=== PATIENT | male | born 1950 | race Caucasian/White ===

== ENCOUNTER 2018-10-29 07:38 | Day surgery (SDC) | payer MEDICARE, BC ==
[2018-10-29] MEDS ORDERED: Lactated Ringers 1,000 ML IV SCH (08:15)
[2018-10-29] MEDS ORDERED: Propofol 200 MG/20 ML SDV ONE (09:27)
[2018-10-29] MEDS ORDERED: Midazolam 1 MG/ML 2 ML SDV ONE (09:27)
[2018-10-29] MEDS ORDERED: fentaNYL 100 MCG/2 ML SDV ONE (09:27)
[2018-10-29 11:50] VITALS: BP 169/99
--- NOTE | 2018-10-29 12:38 | OR ---
DATE OF PROCEDURE: 10/29/2018 PREOPERATIVE DIAGNOSIS: Positive FIT test. POSTOPERATIVE DIAGNOSES: [place] diverticulosis, small proximal right colon polyp, positive FIT test. PROCEDURE: Colonoscopy to the cecum with biopsy resection of small proximal right colon polyp. ANESTHESIA: IV anesthesia with monitored anesthesia care. INDICATION: This 67-year-old white male was referred for a colonoscopy. He says the last colonoscopic exam was done 8 years ago. He had a positive FIT test. I counseled him for the procedure including risks and alternatives, and he gave his informed consent to proceed. DESCRIPTION OF PROCEDURE: The patient was placed in the left lateral decubitus position. IV anesthesia was administered by the Anesthesia Service. Time-out was held. A rectal exam was performed which was unremarkable. The flexible video Olympus colonoscope was introduced through his anus, up his rectum, out his colon, all the way to the cecum. En route, we saw multiple both right and left-sided diverticula. There was no bleeding or inflammation associated with any of them at the present time. Once the cecum was reached, the scope was slowly withdrawn examining the mucosa throughout. In the proximal right colon, we saw a small polyp which was removed with the biopsy forceps. The scope was withdrawn further with no other neoplastic lesions noted. The scope was retroflexed in the rectum with the distal rectum appearing unremarkable. The scope was straightened and removed. He tolerated the procedure well. Leonides Hill MD /[id number]
== END 2018-10-29 11:40 | disposition home or self-care (01) ==
LOC: JP.SDS 07:38
PROVIDERS: ATTEND Surgery
DX: R19.5 Other fecal abnormalities (principal); D12.2 Benign neoplasm of ascending colon; K57.30 Diverticulosis of large intestine without perforation or abscess without bleeding
CPT/HCPCS: 45380; J2250; J2704; J3010; J7120

== ENCOUNTER 2019-03-16 06:17 | Day surgery (SDC) | payer MEDICARE, BC ==
[2019-03-16] MEDS ORDERED: Midazolam 1 MG/ML 2 ML SDV ONE (06:46)
[2019-03-16] MEDS ORDERED: Propofol 200 MG/20 ML SDV ONE (06:46)
[2019-03-16] MEDS ORDERED: Lactated Ringers 1,000 ML IV SCH (07:30)
[2019-03-16] MEDS ORDERED: Ketamine 500 MG/5 ML MDV ONE (07:57)
[2019-03-16 09:11] VITALS: BP 139/71
--- NOTE | 2019-03-16 11:03 | OR ---
DATE OF PROCEDURE: 03/16/2019 PREOPERATIVE DIAGNOSES: Dysphagia, history of peptic ulcer disease. POSTOPERATIVE DIAGNOSES: Gastroesophageal reflux disease, dysphagia, gastritis, history of peptic ulcer disease. PROCEDURE: Esophagogastroduodenoscopy with biopsy of gastroesophageal junction and biopsy of the antrum for CLOtest and for pathology to look for Helicobacter pylori. SURGEON: Leonides Hill MD ANESTHESIA: IV anesthesia with monitored anesthesia care. INDICATION: This 68-year-old white male is referred for upper endoscopy. He complains of food getting stuck occasionally when he swallows. He has never smoked. Additionally, he says he has a history of peptic ulcer disease about 20 years ago and has been on antacid medication since then. I counseled him for upper endoscopy with possible biopsy, including risks and alternatives, and he gave his informed consent to proceed. DESCRIPTION OF PROCEDURE: The patient was placed in a left lateral decubitus position. IV anesthesia was administered by the Anesthesia Service. Time-out was held. The flexible video Olympus upper endoscope was passed through his mouth, down the esophagus, and into his stomach. The scope was easily passed through the pylorus into the duodenum, reaching its third portion. The scope was then slowly withdrawn, examining the mucosa throughout. The duodenal mucosa appeared unremarkable. The scope was brought up through the pylorus. The antrum had areas of erythematous streaking with occasional small prepyloric ulcers noted, consistent with gastritis. The scope was retroflexed. The most proximal stomach appeared unremarkable. The scope was straightened. We obtained biopsies of the antrum for CLOtest and for pathology to look for Helicobacter pylori. The scope was then brought up to the GE junction. The Z-line was not straight, consistent with gastroesophageal reflux disease. We obtained multiple, totalling at least 6, biopsies of the gastroesophageal junction. The scope was then brought proximally up through remainder of the esophagus, which otherwise appeared unremarkable, and it was removed. There were no obstructing lesions in the esophagus. Leonides Hill MD /[id number]
== END 2019-03-16 09:16 | disposition home or self-care (01) ==
LOC: JP.SDS 06:17
PROVIDERS: ATTEND Surgery
DX: K29.50 Unspecified chronic gastritis without bleeding (principal); K21.9 Gastro-esophageal reflux disease without esophagitis; K22.8 Other specified diseases of esophagus; K57.90 Diverticulosis of intestine, part unspecified, without perforation or abscess without bleeding; I10 Essential (primary) hypertension; E11.9 Type 2 diabetes mellitus without complications; E78.5 Hyperlipidemia, unspecified; F32.9 Major depressive disorder, single episode, unspecified; F41.9 Anxiety disorder, unspecified; G47.30 Sleep apnea, unspecified; M10.9 Gout, unspecified; E66.9 Obesity, unspecified; Z68.41 Body mass index [BMI] 40.0-44.9, adult; Z90.49 Acquired absence of other specified parts of digestive tract; Z87.11 Personal history of peptic ulcer disease; Z79.82 Long term (current) use of aspirin; Z79.84 Long term (current) use of oral hypoglycemic drugs; Z79.899 Other long term (current) drug therapy
CPT/HCPCS: 87081; 88305; J2250; J2704; J7120

== ENCOUNTER 2019-09-23 08:02 | Emergency (ER) | payer MEDICARE, BC ==
[2019-09-23 08:14] VITALS: BP 160/84; PULSE 77
[2019-09-23] MEDS ORDERED: Gabapentin 300 MG Cap PO ONE (08:39)
--- NOTE | 2019-09-23 08:46 | EDM.PDOC ---
ED HPI GENERAL MEDICAL PROBLEM - General Chief Complaint: Lower Extremity Injury/Pain Stated Complaint: PAIN IN BOTTOM OF R FOOT Time Seen by Provider: 09/23/19 08:25 Source of Information: Reports: Patient History Limitations: Reports: No Limitations - History of Present Illness INITIAL COMMENTS - FREE TEXT/NARRATIVE: 68-year-old male with a painful right foot for the past 48 hours. It started after a long sedentary car ride, and since that time has had an intermittent very itchy, burning sensation on the pad of his right foot behind the toes. He could not sleep last night because of the intense burning and itching. He has no erythema, trauma, swelling, rash or other generalized illness. He does have chronic sciatica, a bad back and bad hips. On arrival to the emergency room his pain was "8 out of 10", but while I was talking to him he admitted its " gone now". Onset: Gradual Duration: Day(s): (2 days), Waxing/Waning Location: Reports: Lower Extremity, Right Improves with: Reports: None Worsens with: Reports: None Associated Symptoms: Reports: No Other Symptoms Right Feet Pain Score (Numeric/FACES): 8 - Related Data Allergies Allergy/AdvReac Type Severity Reaction Status Date / Time No Known Allergies Allergy Verified 03/16/19 06:50 Home Meds: Home Meds Furosemide [Lasix] 40 mg PO DAILY 01/17/14 [History] Losartan [Cozaar] 100 mg PO DAILY 01/17/14 [History] Metoprolol Tartrate [Lopressor] 25 mg PO BID 01/17/14 [History] Simvastatin [Zocor] 30 mg PO BEDTIME 01/17/14 [History] allopurinoL [Zyloprim] 150 mg PO DAILY 01/17/14 [History] metFORMIN [metFORMIN XR] 500 mg PO BIDMEALS 01/17/14 [History] Aspirin [Halfprin] 81 mg PO DAILY 11/26/16 [History] [place]-3S/DHA/Epa/Fish Oil [[place]-3 Fish Oil 1,000 mg Sfgl] 1 tab PO TID [History] Past Medical History HEENT History: Reports: Allergic Rhinitis, Cataract, Impaired Vision Cardiovascular History: Reports: Heart Failure, High Cholesterol, Hypertension Respiratory History: Reports: Sleep Apnea Gastrointestinal History: Reports: Chronic Constipation, Chronic Diarrhea, Diverticulosis, Hemorrhoids Genitourinary History: Reports: Renal Calculus Musculoskeletal History: Reports: Back Pain, Chronic, Neck Pain, Chronic, Osteoarthritis, Other (See Below) Other Musculoskeletal History: left shoulder Neurological History: Reports: CVA Other Neuro History: vertebral artery occlusion Psychiatric History: Reports: Addiction, Anxiety, Bipolar, Depression, Other ( See Below) Other Psychiatric History: major depressive disorder Endocrine/Metabolic History: Reports: Diabetes, Type II, Obesity/BMI 30+ Hematologic History: Reports: None Immunologic History: Reports: None Oncologic (Cancer) History: Reports: Prostate Dermatologic History: Reports: None - Infectious Disease History Infectious Disease History: Reports: Chicken Pox - Past Surgical History HEENT Surgical History: Reports: Cataract Surgery Cardiovascular Surgical History: Reports: Other (See Below) Other Cardiovascular Surgeries/Procedures: ANGIOGRAM ABAOUT 20 YEARS AGO Respiratory Surgical History: Reports: None GI Surgical History: Reports: Cholecystectomy, Colonoscopy, Hernia, Abdominal Male Surgical History: Reports: Prostatectomy, Other (See Below) Other Male Surgeries/Procedures: PILIDINOL CYST SURGERY Endocrine Surgical History: Reports: None Neurological Surgical History: Reports: Spinal Fusion, Other (See Below) Other Neurological Surgeries/Procedures: Spinal cord stimulator Musculoskeletal Surgical History: Reports: Shoulder Surgery Dermatological Surgical History: Reports: None Social & Family History - Family History Family Medical History: Noncontributory - Tobacco Use Smoking Status *Q: Never Smoker - Caffeine Use Caffeine Use: Reports: Coffee, Soda - Recreational Drug Use Recreational Drug Use: No Review of Systems - Review of Systems Review Of Systems: See Below Constitutional: Denies: Fever Respiratory: Reports: No Symptoms Cardiovascular: Reports: No Symptoms Musculoskeletal: Reports: Other (Chronic back and hip pain) Skin: Reports: No Symptoms ED EXAM, GENERAL - Physical Exam Exam: See Below Exam Limited By: No Limitations General Appearance: Alert, No Apparent Distress Head: Atraumatic Respiratory/Chest: No Respiratory Distress Cardiovascular: Regular Rate, Rhythm Extremities: Other (Exam of the lower extremities reveals symmetric feet. No lesions of the soles or toes of the feet. No edema or redness. He has no pain with passive range of motion of any of the toes of the right foot. On palpation of the distal pad of the foot under the MP joints it causes an itchy sensation but no significant pain) Course - Vital Signs Last Recorded V/S: Last Vital Signs Temp 96.5 F 09/23/19 08:17 Pulse 77 09/23/19 08:17 Resp 16 09/23/19 08:17 BP 160/84 H 09/23/19 08:17 Pulse Ox 93 L 09/23/19 08:17 - Orders/Labs/Meds Meds: Medications Discontinued Medications Generic Name Dose Route Start Last Admin Trade Name Taran RODRIGUEZ Reason Stop Dose Admin Gabapentin 300 mg 09/23/19 08:39 09/23/19 08:42 Neurontin PO 09/23/19 08:40 300 mg ONETIME ONE Administration - Re-Assessments/Exams Free Text/Narrative Re-Assessment/Exam: 09/23/19 08:44 This is a very unusual presentation of I think an intermittent neuropathy or nerve irritation. There is no sign of inflammation, infection, rash or isolated MP joint injury. I am going to give the patient 300 mg of Neurontin, and a prescription to continue with 3 times a day dosing through the . Elevate the foot when able and continue his other regular medications including tramadol. Recheck with podiatry on Thursday if not improving satisfactorily. Departure - Departure Time of Disposition: 08:55 Disposition: Home, Self-Care 01 Clinical Impression: Neuropathic pain of right foot - Discharge Information Instructions: Neuropathic Pain Referrals: Aly Nash NP [Primary Care Provider] - Forms: ED Department Discharge Care Plan Goals: Elevate and rest foot when able, continue your regular medications and take Neurontin 3 times daily through the as directed. Recheck on Thursday with Dr. Cruz at the clinic if not improving satisfactorily. Return sooner if worsening, especially if you develop swelling, fever, or rash over the painful area. Sepsis Event Note - Evaluation Sepsis Screening Result: No Definite Risk - Focused Exam Vital Signs: Vital Signs Temp Pulse Resp BP Pulse Ox 09/23/19 08:17 96.5 F 77 16 160/84 H 93 L 09/23/19 08:13 96.5 F 77 16 160/84 H 93 L Date Exam was Performed: 09/23/19 Time Exam was Performed: 08:59
== END 2019-09-23 08:56 | disposition home or self-care (01) ==
LOC: JP.ED 08:02
DX: E11.40 Type 2 diabetes mellitus with diabetic neuropathy, unspecified (principal); I11.0 Hypertensive heart disease with heart failure; I50.9 Heart failure, unspecified; E78.00 Pure hypercholesterolemia, unspecified; E66.9 Obesity, unspecified; Z68.41 Body mass index [BMI] 40.0-44.9, adult; Z79.82 Long term (current) use of aspirin; Z79.84 Long term (current) use of oral hypoglycemic drugs; Z79.899 Other long term (current) drug therapy
CPT/HCPCS: 99283; A9270

== ENCOUNTER 2020-07-08 14:11 | Emergency (ER) | payer MEDICARE, OTHER ==
[2020-07-08 14:21] VITALS: BP 170/88; PULSE 84
--- NOTE | 2020-07-08 14:43 | EDM.PDOC ---
ED HPI GENERAL MEDICAL PROBLEM - General Chief Complaint: Respiratory Problem Stated Complaint: PATIENT SAID HIGH TEMP. SHORTNESS OF BREATH Time Seen by Provider: 07/08/20 14:19 Source of Information: Reports: Patient, RN Notes Reviewed History Limitations: Reports: No Limitations - History of Present Illness INITIAL COMMENTS - FREE TEXT/NARRATIVE: 69-year-old gentleman presents emergency department a complaint of cough, he states his been ill for about a week has had fevers on and off body aches in the morning he produces some black-brownish sputum does resolve after a while his chest does hurt from coughing there is a potential for exposure has he did go to a in [facility]. Contacted the nurses line recommended that he report to the emergency department for COVID testing - Related Data Allergies Allergy/AdvReac Type Severity Reaction Status Date / Time No Known Allergies Allergy Verified 03/16/19 06:50 Home Meds: Home Meds Furosemide [Lasix] 40 mg PO DAILY 01/17/14 [History] Losartan [Cozaar] 100 mg PO DAILY 01/17/14 [History] Metoprolol Tartrate [Lopressor] 25 mg PO BID 01/17/14 [History] Simvastatin [Zocor] 30 mg PO BEDTIME 01/17/14 [History] allopurinoL [Zyloprim] 150 mg PO DAILY 01/17/14 [History] metFORMIN [metFORMIN XR] 1,000 mg PO BIDMEALS 01/17/14 [History] Aspirin [Halfprin] 81 mg PO DAILY 11/26/16 [History] [place]-3S/DHA/Epa/Fish Oil [[place]-3 Fish Oil 1,000 mg Sfgl] 1 tab PO TID 10/27/18 [History] Benzonatate [Tessalon Perle] 100 mg PO TID #20 capsule 07/08/20 [Rx] traMADol [Ultram] 50 mg PO ASDIRECTED PRN 07/08/20 [History] Past Medical History HEENT History: Reports: Allergic Rhinitis, Cataract, Impaired Vision Cardiovascular History: Reports: Heart Failure, High Cholesterol, Hypertension Respiratory History: Reports: Sleep Apnea Gastrointestinal History: Reports: Chronic Constipation, Chronic Diarrhea, Diverticulosis, Hemorrhoids Genitourinary History: Reports: Renal Calculus Musculoskeletal History: Reports: Back Pain, Chronic, Neck Pain, Chronic, Osteoarthritis, Other (See Below) Other Musculoskeletal History: left shoulder Neurological History: Reports: CVA Other Neuro History: vertebral artery occlusion Psychiatric History: Reports: Addiction, Anxiety, Bipolar, Depression, Other (See Below) Other Psychiatric History: major depressive disorder Endocrine/Metabolic History: Reports: Diabetes, Type II, Obesity/BMI 30+ Hematologic History: Reports: None Immunologic History: Reports: None Oncologic (Cancer) History: Reports: Prostate Dermatologic History: Reports: None - Infectious Disease History Infectious Disease History: Reports: Chicken Pox - Past Surgical History HEENT Surgical History: Reports: Cataract Surgery Cardiovascular Surgical History: Reports: Other (See Below) Other Cardiovascular Surgeries/Procedures: ANGIOGRAM ABAOUT 20 YEARS AGO. oversized aorta Respiratory Surgical History: Reports: None GI Surgical History: Reports: Cholecystectomy, Colonoscopy, Hernia, Abdominal Male Surgical History: Reports: Prostatectomy, Other (See Below) Other Male Surgeries/Procedures: PILIDINOL CYST SURGERY Endocrine Surgical History: Reports: None Neurological Surgical History: Reports: Spinal Fusion, Other (See Below) Other Neurological Surgeries/Procedures: Spinal cord stimulator Musculoskeletal Surgical History: Reports: Shoulder Surgery Dermatological Surgical History: Reports: None Social & Family History - Family History Family Medical History: Noncontributory - Tobacco Use Smoking Status *Q: Never Smoker - Caffeine Use Caffeine Use: Reports: None - Recreational Drug Use Recreational Drug Use: No ED ROS GENERAL - Review of Systems Review Of Systems: See Below Constitutional: Reports: Fever, Chills HEENT: Reports: No Symptoms Respiratory: Reports: Cough, Sputum. Denies: Shortness of Breath Cardiovascular: Reports: Chest Pain GI/Abdominal: Reports: No Symptoms : Reports: No Symptoms Musculoskeletal: Reports: Muscle Pain ED EXAM, GENERAL - Physical Exam Exam: See Below Exam Limited By: No Limitations General Appearance: Alert, WD/WN, No Apparent Distress Respiratory/Chest: No Respiratory Distress, Lungs Clear, Normal Breath Sounds, No Accessory Muscle Use, Chest Non-Tender Cardiovascular: Regular Rate, Rhythm, No Murmur GI/Abdominal: Soft, Non-Tender Course - Vital Signs Last Recorded V/S: Last Vital Signs Temp 99.6 F 07/08/20 14:21 Pulse 84 07/08/20 14:21 Resp 18 07/08/20 14:21 BP 170/88 H 07/08/20 14:21 Pulse Ox 93 L 07/08/20 14:21 - Orders/Labs/Meds Orders: Active Orders 24 hr Category Date Time Status CORONAVIRUS COVID-19, LEONEL Stat Lab 07/08/20 15:36 Received Labs: Laboratory Tests 07/08/20 07/08/20 07/08/20 Range/Units 14:56 14:56 14:56 WBC 6.3 (4.5-11.0) K/uL RBC 4.10 L (4.30-5.90) M/uL Hgb 13.7 (12.0-15.0) g/dL Hct 41.3 (40.0-54.0) % MCV 101 H (80-98) fL MCH 33 H (27-31) pg MCHC 33 (32-36) % Plt Count 89 L (150-400) K/uL Neut % (Auto) 65 (36-66) % Lymph % (Auto) 17 L (24-44) % [place] % (Auto) 16 H (2-6) % Eos % (Auto) 1 L (2-4) % Baso % (Auto) 1 (0-1) % Sodium (140-148) mmol/L Potassium (3.6-5.2) mmol/L Chloride (100-108) mmol/L Carbon Dioxide (21-32) mmol/L Anion Gap (5.0-14.0) mmol/L BUN (7-18) mg/dL Creatinine (0.8-1.3) mg/dL Est Cr Clr Drug Dosing mL/min Estimated GFR (MDRD) (>60) Glucose (74-106) mg/dL Lactic Acid 1.6 (0.4-2.0) mmol/L Calcium (8.5-10.1) mg/dL Total Bilirubin (0.2-1.0) mg/dL AST (15-37) U/L ALT (12-78) U/L Alkaline Phosphatase (46-116) U/L Lactate Dehydrogenase 188 (85-227) U/L C-Reactive Protein 9.69 H (0.0-0.3) mg/dL Total Protein (6.4-8.2) g/dL Albumin (3.4-5.0) g/dL Globulin (2.3-3.5) g/dL Albumin/Globulin Ratio (1.2-2.2) Procalcitonin ng/mL 07/08/20 07/08/20 Range/Units 14:56 14:56 WBC (4.5-11.0) K/uL RBC (4.30-5.90) M/uL Hgb (12.0-15.0) g/dL Hct (40.0-54.0) % MCV (80-98) fL MCH (27-31) pg MCHC (32-36) % Plt Count (150-400) K/uL Neut % (Auto) (36-66) % Lymph % (Auto) (24-44) % [place] % (Auto) (2-6) % Eos % (Auto) (2-4) % Baso % (Auto) (0-1) % Sodium 137 L (140-148) mmol/L Potassium 4.1 (3.6-5.2) mmol/L Chloride 99 L (100-108) mmol/L Carbon Dioxide 29 (21-32) mmol/L Anion Gap 13.1 (5.0-14.0) mmol/L BUN 23 H (7-18) mg/dL Creatinine 1.4 H (0.8-1.3) mg/dL Est Cr Clr Drug Dosing 44.94 mL/min Estimated GFR (MDRD) 50 L (>60) Glucose 145 H (74-106) mg/dL Lactic Acid (0.4-2.0) mmol/L Calcium 8.9 (8.5-10.1) mg/dL Total Bilirubin 1.3 H (0.2-1.0) mg/dL AST 52 H (15-37) U/L ALT 83 H (12-78) U/L Alkaline Phosphatase 104 (46-116) U/L Lactate Dehydrogenase (85-227) U/L C-Reactive Protein (0.0-0.3) mg/dL Total Protein 7.7 (6.4-8.2) g/dL Albumin 3.7 (3.4-5.0) g/dL Globulin 4.0 H (2.3-3.5) g/dL Albumin/Globulin Ratio 0.9 L (1.2-2.2) Procalcitonin 0.11 ng/mL Departure - Departure Time of Disposition: 16:10 Disposition: Home, Self-Care 01 Condition: Fair Clinical Impression: Viral syndrome - Discharge Information Prescriptions: Benzonatate [Tessalon Perle] 100 mg PO TID #20 capsule Instructions: Viral Respiratory Infection, [id number] Referrals: PCP,None [Primary Care Provider] - Forms: ED Department Discharge Additional Instructions: Try the Tessalon Perles you can take this up to 3 times a day as needed for cough, please followup with your primary care provider in 3-5 days if not better, please call return to the emergency department with worsening of symptoms. We will contact you with the results from your COVID test Sepsis Event Note (ED) - Evaluation Sepsis Screening Result: No Definite Risk - Focused Exam Vital Signs: Vital Signs Temp Pulse Resp BP Pulse Ox 07/08/20 14:21 99.6 F 84 18 170/88 H 93 L 07/08/20 14:20 99.6 F 84 18 170/88 H 93 L - My Orders Last 24 Hours: My Active Orders 07/08/20 15:36 CORONAVIRUS COVID-19, LEONEL Stat - Assessment/Plan Last 24 Hours: My Active Orders 07/08/20 15:36 CORONAVIRUS COVID-19, LEONEL Stat Plan: Assessment Acuity = acute Site and laterality = viral syndrome Etiology = unknown Manifestations = cough Location of injury = Home Lab values = CBC unremarkable, sodium low at 137 consistent hyponatremia creatinine elevated 1.4 consistent with chronic renal failure stage G3 B lactic acid normal 1.6 total bilirubin elevated 1.3 consistent hyperbilirubinemia AST 52 ALT 83 consistent with elevated liver enzymes LDH normal 184 CRP elevated 9.69 procalcitonin low at 0.1 consistent with viral infection, chest x-ray I did review films myself I cannot appreciate any acute process, the official read from radiology is pending COVID test is pending Plan I did review lab work with him and x-ray results he is going to try Tessalon Perles prescription written for 100 mg p.o. 3 times daily as needed for cough faxed to [facility] follow-up primary care 3 to 5 days if not better COVID test will be back in about 3 days This note was dictated using [employer] voice recognition software please call with any questions on syntax or grammar.
--- NOTE | 2020-07-08 15:42 | CRLCR ---
HISTORY: Shortness of breath. TECHNIQUE: Two views of the chest. COMPARISON: No prior. FINDINGS: Cardiac size within normal limits. No pulmonary vascular congestion. There is an approximately 9 mm nodular opacity within the right middle lobe. This could reflect a calcified granuloma though correlation with prior chest radiographs or radiographic followup is suggested. No consolidation or pulmonary edema. No pneumothorax or pleural effusion. Spinal stimulator. Prior reverse left shoulder arthroplasty. IMPRESSION: 1. No acute lung infiltrate or pulmonary edema. 2. Right middle lobe pulmonary nodule could reflect a calcified granuloma. Comparison with prior chest radiographs and/or radiographic followup is recommended to document stability. Dictated by Chaparro Flores MD @ 07/08/2020 3:40:22 PM Dictated by: Chaparro Flores MD @ 07/08/2020 15:40:27 (Electronically Signed)
== END 2020-07-08 16:15 | disposition home or self-care (01) ==
LOC: JP.ED 14:11
DX: U07.1 COVID-19 (principal); E78.00 Pure hypercholesterolemia, unspecified; I11.0 Hypertensive heart disease with heart failure; I50.9 Heart failure, unspecified; E11.9 Type 2 diabetes mellitus without complications; E66.9 Obesity, unspecified; Z79.82 Long term (current) use of aspirin; Z86.73 Personal history of transient ischemic attack (TIA), and cerebral infarction without residual deficits; Z90.49 Acquired absence of other specified parts of digestive tract; Z79.84 Long term (current) use of oral hypoglycemic drugs; Z79.899 Other long term (current) drug therapy
CPT/HCPCS: 36415; 71046; 80053; 83605; 83615; 84145; 85025; 86140; 99283; U0002

== ENCOUNTER 2020-08-22 13:44 | Emergency (ER) | payer MEDICARE, BC ==
[2020-08-22] MEDS ORDERED: Sodium Chloride 0.9% 10 ML Syringe FLUSH PRN ×2 (15:03→16:18)
--- NOTE | 2020-08-22 15:03 | EDM.PDOC ---
ED HPI GENERAL MEDICAL PROBLEM - General Chief Complaint: Chest Pain Stated Complaint: chest pain did have covid JULY 11 Time Seen by Provider: 08/22/20 15:00 Source of Information: Reports: Patient, Family, Old Records, RN History Limitations: Reports: No Limitations - History of Present Illness INITIAL COMMENTS - FREE TEXT/NARRATIVE: 69 yo male with chronic neck pain, HTN, and an "enlarged aorta" presents with chest pain worse with breathing that began about 1 pm today. Was dx with Covid 5 weeks ago. Took all his meds as prescribed so far today. Was seen in the clinic yesterday and his BP was 150 and his HR in the 115 range. Onset: Today, Sudden Onset Date: 08/22/20 Onset Time: 13:00 Duration: Hour(s): (2+), Constant Location: Reports: Chest Quality: Reports: Pressure Severity: Moderate Improves with: Reports: None Worsens with: Reports: Breathing Context: Reports: Other (See HPI) Associated Symptoms: Reports: Chest Pain. Denies: Diaphoresis, Fever/Chills, Nausea/Vomiting, Shortness of Breath Treatments CANT GANG SAWYER: Reports: Other (see below) (none) Chest Pain Score (Numeric/FACES): 2 - Related Data Allergies Allergy/AdvReac Type Severity Reaction Status Date / Time No Known Allergies Allergy Verified 08/22/20 14:14 Home Meds: Home Meds Furosemide [Lasix] 40 mg PO DAILY 01/17/14 [History] Losartan [Cozaar] 100 mg PO DAILY 01/17/14 [History] Metoprolol Tartrate [Lopressor] 25 mg PO BID 01/17/14 [History] Simvastatin [Zocor] 30 mg PO BEDTIME 01/17/14 [History] allopurinoL [Zyloprim] 150 mg PO DAILY 01/17/14 [History] metFORMIN [metFORMIN XR] 1,000 mg PO BIDMEALS 01/17/14 [History] Aspirin [Halfprin] 81 mg PO DAILY 11/26/16 [History] [place]-3S/DHA/Epa/Fish Oil [[place]-3 Fish Oil 1,000 mg Sfgl] 1 tab PO TID 10/27/18 [History] traMADol [Ultram] 50 mg PO ASDIRECTED PRN 07/08/20 [History] Past Medical History HEENT History: Reports: Allergic Rhinitis, Cataract, Impaired Vision Cardiovascular History: Reports: Heart Failure, High Cholesterol, Hypertension Other Cardiovascular History: enlarged aorta Respiratory History: Reports: Sleep Apnea Gastrointestinal History: Reports: Chronic Constipation, Chronic Diarrhea, Diverticulosis, Hemorrhoids Genitourinary History: Reports: Renal Calculus Musculoskeletal History: Reports: Back Pain, Chronic, Neck Pain, Chronic, Osteoarthritis, Other (See Below) Other Musculoskeletal History: left shoulder Neurological History: Reports: CVA Other Neuro History: vertebral artery occlusion Psychiatric History: Reports: Addiction, Anxiety, Bipolar, Depression, Other (See Below) Other Psychiatric History: major depressive disorder Endocrine/Metabolic History: Reports: Diabetes, Type II, Obesity/BMI 30+ Hematologic History: Reports: None Immunologic History: Reports: None Oncologic (Cancer) History: Reports: Prostate Dermatologic History: Reports: None - Infectious Disease History Infectious Disease History: Reports: Chicken Pox - Past Surgical History HEENT Surgical History: Reports: Cataract Surgery Cardiovascular Surgical History: Reports: Other (See Below) Other Cardiovascular Surgeries/Procedures: ANGIOGRAM ABAOUT 20 YEARS AGO. oversized aorta Respiratory Surgical History: Reports: None GI Surgical History: Reports: Cholecystectomy, Colonoscopy, Hernia, Abdominal Male Surgical History: Reports: Prostatectomy, Other (See Below) Other Male Surgeries/Procedures: PILIDINOL CYST SURGERY Endocrine Surgical History: Reports: None Neurological Surgical History: Reports: Spinal Fusion, Other (See Below) Other Neurological Surgeries/Procedures: Spinal cord stimulator Musculoskeletal Surgical History: Reports: Shoulder Surgery Dermatological Surgical History: Reports: None Social & Family History - Family History Family Medical History: No Pertinent Family History - Tobacco Use Tobacco Use Status *Q: Never Tobacco User - Caffeine Use Caffeine Use: Reports: None - Recreational Drug Use Recreational Drug Use: No ED ROS GENERAL - Review of Systems Review Of Systems: See Below Constitutional: Reports: No Symptoms HEENT: Reports: No Symptoms Respiratory: Reports: Pleuritic Chest Pain Cardiovascular: Reports: Chest Pain Endocrine: Reports: No Symptoms GI/Abdominal: Reports: No Symptoms : Reports: No Symptoms Musculoskeletal: Reports: No Symptoms Skin: Reports: No Symptoms Neurological: Reports: No Symptoms Psychiatric: Reports: No Symptoms ED EXAM, GENERAL - Physical Exam Exam: See Below Exam Limited By: No Limitations General Appearance: Alert, WD/WN, No Apparent Distress Eye Exam: Bilateral Eye: Normal Inspection Ears: Normal External Exam, Normal Canal, Hearing Grossly Normal Ear Exam: Bilateral Ear: Auricle Normal, Canal Normal Nose: Normal Inspection, No Blood Throat/Mouth: Normal Inspection, Normal Lips, Normal Oropharynx, Normal Voice, No Airway Compromise Head: Atraumatic, Normocephalic Neck: Normal Inspection Respiratory/Chest: No Respiratory Distress, Lungs Clear, Normal Breath Sounds, No Accessory Muscle Use Cardiovascular: Regular Rate, Rhythm, No Edema, Tachycardia GI/Abdominal: Normal Bowel Sounds, Non-Tender, Other (obese) Back Exam: Normal Inspection Extremities: Normal Inspection, Normal Range of Motion, Non-Tender, No Pedal Edema Neurological: Alert, Oriented, CN II-XII Intact, Normal Cognition, No Motor/Sensory Deficits Psychiatric: Normal Affect, Normal Mood Skin Exam: Warm, Dry, Intact, Normal Color, No Rash #1 Interpretation EKG Date: 08/22/20 Time: 14:55 Rhythm: Other Rate (Beats/Min): 123 [place]: Normal P-Wave: Absent QRS: Normal ST-T: Depressed (V5-V6) QT: Normal Comparison: NA - No Prior EKG #2 Interpretation EKG Date: 08/22/20 Time: 17:40 Rhythm: NSR Rate (Beats/Min): 88 [place]: Normal P-Wave: Present QRS: Normal ST-T: Depressed (slight in inferior leads.) QT: Normal Comparison: Change From Previous EKG (Rate has slowed. P waves clearly present now.) Course - Vital Signs Text/Narrative:: Called [facility] [place] @ 1735h, no available beds. Accepted by Petros Agrawal @ 1756h Last Recorded V/S: Last Vital Signs Temp 37.2 C 08/22/20 14:11 Pulse 77 08/22/20 17:32 Resp 17 08/22/20 17:32 BP 118/74 08/22/20 17:32 Pulse Ox 92 L 08/22/20 17:32 - Orders/Labs/Meds Orders: Active Orders 24 hr Category Date Time Status Cardiac Monitoring [RC] .As Directed Care 08/22/20 14:28 Active EKG Documentation Completion [RC] ASDIRECTED Care 08/22/20 14:28 Active EKG Documentation Completion [RC] ASDIRECTED Care 08/22/20 17:35 Ordered Heparin Sodium/D5W [Heparin 25,000 Units in D5W 500 ML] Med 08/22/20 17:37 Ordered 25,000 units in 500 ml IV NOW Iopamidol [Isovue-370 (76%)] Med 08/22/20 16:30 Active 91 ml IV . DIRECTED Sodium Chloride 0.9% [Saline Flush] Med 08/22/20 15:03 Active 10 ml FLUSH ASDIRECTED PRN Sodium Chloride 0.9% [Saline Flush] Med 08/22/20 16:18 Active 10 ml FLUSH ONETIME PRN Saline Lock Insert [OM.PC] Routine Oth 08/22/20 15:03 Ordered EKG 12 Lead [EK] Routine Ther 08/22/20 14:28 Ordered EKG 12 Lead [EK] Routine Ther 08/22/20 17:35 Ordered Medication Orders Heparin Sodium/Dextrose (Heparin 25,000 Units In D5w 500 Ml) 25,000 units in 500 mls @ 18 mls/hr IV NOW STA Stop: 08/23/20 21:23 Iopamidol (Isovue-370 (76%)) 91 ml IV . DIRECTED BECKIE Last Admin: 08/22/20 16:25 Dose: 91 ml Documented by: BRITTANY Sodium Chloride (Saline Flush) 10 ml FLUSH ASDIRECTED PRN PRN Reason: Keep Vein Open Last Admin: 08/22/20 15:30 Dose: 10 ml Documented by: PREILOR Sodium Chloride (Saline Flush) 10 ml FLUSH ONETIME PRN PRN Reason: PER RADIOLOGY PROTOCOL Last Admin: 08/22/20 16:25 Dose: 10 ml Documented by: BRITTANY Labs: Laboratory Tests 08/22/20 08/22/20 08/22/20 Range/Units 15:16 15:16 15:16 WBC 9.1 (4.5-11.0) K/uL RBC 4.26 L (4.30-5.90) M/uL Hgb 13.7 (12.0-15.0) g/dL Hct 42.4 (40.0-54.0) % MCV 100 H (80-98) fL MCH 32 H (27-31) pg MCHC 32 (32-36) % Plt Count 265 (150-400) K/uL D-Dimer, Quantitative 1094.83 H (0.0-500.0) ng/mL Sodium 138 L (140-148) mmol/L Potassium 5.4 H (3.6-5.2) mmol/L Chloride 101 (100-108) mmol/L Carbon Dioxide 25 (21-32) mmol/L Anion Gap 17.4 H (5.0-14.0) mmol/L BUN 26 H (7-18) mg/dL Creatinine 1.6 H (0.8-1.3) mg/dL Est Cr Clr Drug Dosing 40.74 mL/min Estimated GFR (MDRD) 43 L (>60) Glucose 215 H (74-106) mg/dL Calcium 9.8 (8.5-10.1) mg/dL Troponin I < 0.017 (0.000-0.056) ng/mL 08/22/20 Range/Units 16:59 WBC (4.5-11.0) K/uL RBC (4.30-5.90) M/uL Hgb (12.0-15.0) g/dL Hct (40.0-54.0) % MCV (80-98) fL MCH (27-31) pg MCHC (32-36) % Plt Count (150-400) K/uL D-Dimer, Quantitative (0.0-500.0) ng/mL Sodium (140-148) mmol/L Potassium (3.6-5.2) mmol/L Chloride (100-108) mmol/L Carbon Dioxide (21-32) mmol/L Anion Gap (5.0-14.0) mmol/L BUN (7-18) mg/dL Creatinine (0.8-1.3) mg/dL Est Cr Clr Drug Dosing mL/min Estimated GFR (MDRD) (>60) Glucose (74-106) mg/dL Calcium (8.5-10.1) mg/dL Troponin I 0.881 H* (0.000-0.056) ng/mL Meds: Medications Generic Name Dose Route Start Last Admin Trade Name Freq PRN Reason Stop Dose Admin Heparin Sodium/Dextrose 25,000 units in 500 mls @ 18 mls/hr 08/22/20 17:37 Heparin 25,000 Units In D5w 500 Ml IV 08/23/20 21:23 NOW STA 900 UNITS/HR Iopamidol 91 ml 08/22/20 16:30 08/22/20 16:25 Isovue-370 (76%) IV 91 ml . DIRECTED BECKIE Administration Sodium Chloride 10 ml 08/22/20 15:03 08/22/20 15:30 Saline Flush FLUSH 10 ml ASDIRECTED PRN Administration Keep Vein Open Sodium Chloride 10 ml 08/22/20 16:18 08/22/20 16:25 Saline Flush FLUSH 10 ml ONETIME PRN Administration PER RADIOLOGY PROTOCOL Discontinued Medications Generic Name Dose Route Start Last Admin Trade Name Freq PRN Reason Stop Dose Admin Aspirin 243 mg 08/22/20 15:04 08/22/20 15:21 Aspirin PO 08/22/20 15:05 243 mg ONETIME ONE Administration Heparin Sodium (Porcine) 5,000 units 08/22/20 17:36 Heparin Sodium IVPUSH 08/22/20 17:37 ONETIME ONE Sodium Chloride 500 mls @ 1,000 mls/hr 08/22/20 15:57 08/22/20 16:55 Normal Saline IV 08/22/20 16:26 1,000 mls/hr .BOLUS ONE Administration Sodium Chloride 90 mls @ 3 mls/sec 08/22/20 16:18 08/22/20 16:26 Normal Saline IV 08/22/20 16:19 3 mls/sec ONETIME ONE Administration Metoprolol Tartrate 25 mg 08/22/20 15:11 08/22/20 15:20 Lopressor PO 08/22/20 15:12 25 mg ONETIME ONE Administration Ticagrelor 180 mg 08/22/20 17:36 Brilinta PO 08/22/20 17:37 ONETIME ONE Tramadol HCl 50 mg 08/22/20 15:11 08/22/20 15:21 Ultram PO 08/22/20 15:12 50 mg ONETIME ONE Administration Tramadol HCl 50 mg 08/22/20 16:03 08/22/20 16:13 Ultram PO 08/22/20 16:04 50 mg ONETIME ONE Administration - Radiology Interpretation Free Text/Narrative:: CTA chest- IMPRESSION: No pulmonary embolism or pneumonia. Thickened interlobular septa may be secondary to volume resuscitation. Cardiomegaly with coronary artery disease. Nodular hepatic contour suggests cirrhosis. Correlate with LFTs and clinical history. Status post cholecystectomy and left shoulder arthroplasty. Please note that all CT scans at this facility use dose modulation, iterative reconstruction, and/or weight-based dosing when appropriate to reduce radiation dose to as low as reasonably achievable. Dictated by Sridevi Rojas MD @ Aug 22 2020 4:45PM (Electronic Signature) CT Results Date: 08/22/20 - Re-Assessments/Exams Free Text/Narrative Re-Assessment/Exam: 08/22/20 17:35 chest pain mostly gone now. Departure - Departure Time of Disposition: 18:15 Disposition: DC/Tfer to Acute Hospital 02 Reason for Transfer *Q: Other Condition: Serious Clinical Impression: Non-STEMI (non-ST elevated myocardial infarction) Referrals: Aly Nash NP [Primary Care Provider] - Forms: ED Department Discharge Sepsis Event Note (ED) - Evaluation Sepsis Screening Result: No Definite Risk - Focused Exam Vital Signs: Vital Signs Temp Pulse Pulse Resp BP BP Pulse Ox 08/22/20 17:32 77 17 118/74 92 L 08/22/20 16:28 87 18 137/75 92 L 08/22/20 15:26 126 H 13 160/101 H 92 L 08/22/20 15:20 126 H 210/132 H 08/22/20 14:26 128 H 16 198/132 H 93 L 08/22/20 14:11 37.2 C 126 H 17 190/114 H 94 L 08/22/20 14:08 37.2 C 126 H 17 190/114 H 94 L - My Orders Last 24 Hours: My Active Orders 08/22/20 14:28 Cardiac Monitoring [RC] .As Directed EKG Documentation Completion [RC] ASDIRECTED EKG 12 Lead [EK] Routine 08/22/20 15:03 Sodium Chloride 0.9% [Saline Flush] 10 ml FLUSH ASDIRECTED PRN Saline Lock Insert [OM.PC] Routine 08/22/20 16:18 Sodium Chloride 0.9% [Saline Flush] 10 ml FLUSH ONETIME PRN 08/22/20 16:30 Iopamidol [Isovue-370 (76%)] 91 ml IV . DIRECTED 08/22/20 17:35 EKG Documentation Completion [RC] ASDIRECTED EKG 12 Lead [EK] Routine 08/22/20 17:37 Heparin Sodium/D5W [Heparin 25,000 Units in D5W 500 ML] 25,000 units in 500 ml IV NOW - Assessment/Plan Last 24 Hours: My Active Orders 08/22/20 14:28 Cardiac Monitoring [RC] .As Directed EKG Documentation Completion [RC] ASDIRECTED EKG 12 Lead [EK] Routine 08/22/20 15:03 Sodium Chloride 0.9% [Saline Flush] 10 ml FLUSH ASDIRECTED PRN Saline Lock Insert [OM.PC] Routine 08/22/20 16:18 Sodium Chloride 0.9% [Saline Flush] 10 ml FLUSH ONETIME PRN 08/22/20 16:30 Iopamidol [Isovue-370 (76%)] 91 ml IV . DIRECTED 08/22/20 17:35 EKG Documentation Completion [RC] ASDIRECTED EKG 12 Lead [EK] Routine 08/22/20 17:37 Heparin Sodium/D5W [Heparin 25,000 Units in D5W 500 ML] 25,000 units in 500 ml IV NOW
[2020-08-22] MEDS ORDERED: Aspirin 81 MG Tab.Chew PO ONE (15:04)
[2020-08-22] MEDS ORDERED: traMADol 50 MG Tab PO ONE ×2 (15:11→16:03)
[2020-08-22] MEDS ORDERED: Metoprolol Tartrate 25 MG Tab PO ONE (15:11)
[2020-08-22] MEDS ORDERED: Sodium Chloride 0.9% 500 ML IV ONE (15:57)
[2020-08-22] MEDS ORDERED: Sodium Chloride 0.9% 90 ML IV ONE (16:18)
[2020-08-22] MEDS ORDERED: Iopamidol 755 Mg/ML 100 ML Bottle IV SCH (16:30)
--- NOTE | 2020-08-22 16:56 | CRLCT ---
INDICATION: Elevated D-dimer, shortness of breath, chest pain, recent COVID TECHNIQUE: CT chest pulmonary PE protocol acquired with IV contrast. COMPARISON: None FINDINGS: Cardiovascular structures: Normal vascular enhancement of the pulmonary arteries, no sign of pulmonary embolism. Cardiomegaly. Coronary artery calcifications. No sign of aneurysm or dissection in the thoracic aorta. Mediastinum and jose enrique: No mass or adenopathy. Lungs: Mild thickening of the interlobular septa. Calcified granuloma right middle lobe. Pleura and pericardium: No effusions. Chest wall and axilla: No mass or adenopathy. Upper abdomen: Nodular hepatic contour. Status post cholecystectomy. Punctate calcified granulomata in the spleen. In. Bones: Status post left shoulder arthroplasty. Neurostimulator device partially visualized in the thoracic spinal canal. IMPRESSION: No pulmonary embolism or pneumonia. Thickened interlobular septa may be secondary to volume resuscitation. Cardiomegaly with coronary artery disease. Nodular hepatic contour suggests cirrhosis. Correlate with LFTs and clinical history. Status post cholecystectomy and left shoulder arthroplasty. Please note that all CT scans at this facility use dose modulation, iterative reconstruction, and/or weight-based dosing when appropriate to reduce radiation dose to as low as reasonably achievable. Dictated by Sridevi Rojas MD @ Aug 22 2020 4:45PM Signed by Dr. Sridevi Rojas @ Aug 22 2020 4:55PM
[2020-08-22] MEDS ORDERED: Ticagrelor 90 MG Tab PO ONE (17:36)
[2020-08-22] MEDS ORDERED: Heparin Sodium 5,000 Units/ML Vial IVPUSH ONE (17:36)
[2020-08-22] MEDS ORDERED: Heparin Sodium/D5W 25,000 UNITS/500 ML BAG IV STA (17:37)
[2020-08-22 18:39] VITALS: BP 161/89; PULSE 99
== END 2020-08-22 19:19 ==
LOC: JP.ED 13:44
DX: I21.4 Non-ST elevation (NSTEMI) myocardial infarction (principal); I11.0 Hypertensive heart disease with heart failure; I50.9 Heart failure, unspecified; E78.00 Pure hypercholesterolemia, unspecified; M19.90 Unspecified osteoarthritis, unspecified site; E11.9 Type 2 diabetes mellitus without complications; E66.9 Obesity, unspecified; Z68.41 Body mass index [BMI] 40.0-44.9, adult; Z79.899 Other long term (current) drug therapy; Z79.82 Long term (current) use of aspirin
CPT/HCPCS: 36415; 71275; 80048; 84484; 85027; 85379; 93005; 96365; 99285; A9270; J1644; J7040; Q9967; 93010

== ENCOUNTER 2020-09-01 11:48 | Emergency (ER) | payer MEDICARE, BC ==
[2020-09-01 12:38] VITALS: BP 124/51; PULSE 63
--- NOTE | 2020-09-01 12:54 | EDM.PDOC ---
ED HPI GENERAL MEDICAL PROBLEM - General Chief Complaint: General Stated Complaint: BLOWING OUT BLOOD HAD STENT PUT IN AUGUST Time Seen by Provider: 09/01/20 12:30 Source of Information: Reports: Patient, Old Records, RN History Limitations: Reports: No Limitations - History of Present Illness INITIAL COMMENTS - FREE TEXT/NARRATIVE: 69 yo male here with passing of blood clots from his L nares intermittently since last night. He says he has been doing this for awhile, even before his recent coronory procedure. He was on ASA, now since his heart procedure he is also on Plavix. 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 Onset: Gradual Duration: Intermittent, Waxing/Waning Location: Reports: Face (L nares) Quality: Reports: Other (no pain) Severity: Mild Improves with: Reports: Other (uncertain) Worsens with: Reports: Other (uncertain) Context: Reports: Other (See HPI) Associated Symptoms: Reports: No Other Symptoms Treatments RECREATIONAL THERAPY TECHNICIAN: Reports: Other (see below) (none) - Related Data Allergies Allergy/AdvReac Type Severity Reaction Status Date / Time No Known Allergies Allergy Verified 09/01/20 12:09 Home Meds: Home Meds Furosemide [Lasix] 40 mg PO DAILY 01/17/14 [History] Losartan [Cozaar] 100 mg PO DAILY 01/17/14 [History] Metoprolol Tartrate [Lopressor] 25 mg PO BID 01/17/14 [History] allopurinoL [Zyloprim] 150 mg PO DAILY 01/17/14 [History] metFORMIN [metFORMIN XR] 1,000 mg PO BIDMEALS 01/17/14 [History] Aspirin [Halfprin] 81 mg PO DAILY 11/26/16 [History] [place]-3S/DHA/Epa/Fish Oil [[place]-3 Fish Oil 1,000 mg Sfgl] 1 tab PO TID 10/27/18 [History] Apixaban [Eliquis] 5 mg PO BID 09/01/20 [History] Clopidogrel [Plavix] 75 mg PO DAILY 09/01/20 [History] Cyanocobalamin (Vitamin B-12) [Vitamin B-12] 250 mcg PO DAILY 09/01/20 [History] Fluticasone Furoate [Arnuity Ellipta] 1 spray IH ASDIRECTED PRN 09/01/20 [History] Folic Acid 1 mg PO DAILY 09/01/20 [History] Insulin Glarg,Human.Rec.Analog [Lantus Solostar] 12 unit SUBCUT BEDTIME 09/01/20 [History] Magnesium Oxide [Magnesium] 500 mg PO BID 09/01/20 [History] Nitroglycerin [Nitrostat] 0.4 mg SL ASDIRECTED 09/01/20 [History] Omeprazole 40 mg PO DAILY 09/01/20 [History] Oxymetazoline [Afrin Original 0.05% Nasal [place]] 1 inh UMESH ASDIRECTED 09/01/20 [History] atorvaSTATin [Lipitor] 80 mg PO BEDTIME 09/01/20 [History] carvediloL [Carvedilol] 6.25 mg PO BID 09/01/20 [History] chlordiazePOXIDE [Librium] 10 mg PO BID 09/01/20 [History] Past Medical History HEENT History: Reports: Allergic Rhinitis, Cataract, Impaired Vision Cardiovascular History: Reports: Heart Failure, High Cholesterol, Hypertension, [place], Stents Other Cardiovascular History: enlarged aorta Respiratory History: Reports: Sleep Apnea Gastrointestinal History: Reports: Chronic Constipation, Chronic Diarrhea, Diverticulosis, Hemorrhoids Genitourinary History: Reports: Renal Calculus Musculoskeletal History: Reports: Back Pain, Chronic, Neck Pain, Chronic, Osteoarthritis, Other (See Below) Other Musculoskeletal History: left shoulder Neurological History: Reports: CVA Other Neuro History: vertebral artery occlusion Psychiatric History: Reports: Addiction, Anxiety, Bipolar, Depression, Other (See Below) Other Psychiatric History: major depressive disorder Endocrine/Metabolic History: Reports: Diabetes, Type II, Obesity/BMI 30+ Hematologic History: Reports: Anticoagulation Therapy Immunologic History: Reports: None Oncologic (Cancer) History: Reports: Prostate Dermatologic History: Reports: None - Infectious Disease History Infectious Disease History: Reports: Chicken Pox - Past Surgical History Head Surgeries/Procedures: Reports: None HEENT Surgical History: Reports: Cataract Surgery Cardiovascular Surgical History: Reports: Coronary Artery Stent, Other (See Below) Other Cardiovascular Surgeries/Procedures: ANGIOGRAM ABAOUT 20 YEARS AGO. oversized aorta Respiratory Surgical History: Reports: None GI Surgical History: Reports: Cholecystectomy, Colonoscopy, Hernia, Abdominal Male Surgical History: Reports: Prostatectomy, Other (See Below) Other Male Surgeries/Procedures: PILIDINOL CYST SURGERY Endocrine Surgical History: Reports: None Neurological Surgical History: Reports: Spinal Fusion, Other (See Below) Other Neurological Surgeries/Procedures: Spinal cord stimulator Musculoskeletal Surgical History: Reports: Shoulder Surgery Oncologic Surgical History: Reports: None Dermatological Surgical History: Reports: None Social & Family History - Family History Family Medical History: No Pertinent Family History - Tobacco Use Tobacco Use Status *Q: Never Tobacco User Second Hand Smoke Exposure: No - Caffeine Use Caffeine Use: Reports: None - Alcohol Use Days Per Week of Alcohol Use: 7 Number of Drinks Per Day: 2 Total Drinks Per Week: 14 - Recreational Drug Use Recreational Drug Use: No ED ROS GENERAL - Review of Systems Review Of Systems: See Below Constitutional: Reports: No Symptoms HEENT: Reports: Nosebleed (clots only from left side) Respiratory: Reports: No Symptoms Cardiovascular: Reports: No Symptoms Endocrine: Reports: No Symptoms GI/Abdominal: Reports: No Symptoms : Reports: No Symptoms Musculoskeletal: Reports: No Symptoms Skin: Reports: Pruritis (diffuse) Neurological: Reports: No Symptoms ED EXAM, GENERAL - Physical Exam Exam: See Below Exam Limited By: No Limitations General Appearance: Alert, WD/WN, No Apparent Distress, Obese Eye Exam: Bilateral Eye: Normal Inspection Ears: Normal External Exam, Normal Canal, Hearing Grossly Normal, Normal TMs Ear Exam: Bilateral Ear: Auricle Normal, Canal Normal, TM normal Nose: Normal Inspection, Normal Mucosa, No Blood Throat/Mouth: Normal Inspection, Normal Lips, Normal Oropharynx, Normal Voice, No Airway Compromise Head: Atraumatic, Normocephalic Neck: Normal Inspection Respiratory/Chest: No Respiratory Distress, Lungs Clear, Normal Breath Sounds, No Accessory Muscle Use Cardiovascular: Regular Rate, Rhythm, No Edema Extremities: Normal Inspection Neurological: Alert, Oriented, CN II-XII Intact, Normal Cognition, No Motor/Sensory Deficits Psychiatric: Normal Affect, Normal Mood Skin Exam: Warm, Dry, Intact, No Rash, Ecchymosis (diffusely) Course - Vital Signs Last Recorded V/S: Last Vital Signs Temp 36.8 C 09/01/20 12:11 Pulse 63 09/01/20 12:38 Resp 18 09/01/20 12:11 BP 124/51 L 09/01/20 12:38 Pulse Ox 95 09/01/20 12:38 - Orders/Labs/Meds Orders: Active Orders 24 hr Category Date Time Status Max Facial Sinus w Cont [CT] Stat Exams 09/01/20 12:55 Ordered Iopamidol [Isovue-300 (61%)] Med 09/01/20 13:00 Active 100 ml IV . DIRECTED Sodium Chloride 0.9% [Normal Saline] 100 ml Med 09/01/20 13:00 Active IV ASDIRECTED Sodium Chloride 0.9% [Saline Flush] Med 09/01/20 12:56 Active 10 ml FLUSH ASDIRECTED PRN Saline Lock Insert [OM.PC] Routine Oth 09/01/20 12:56 Ordered Medication Orders Sodium Chloride (Normal Saline) 100 mls @ 3 mls/sec IV ASDIRECTED BECKIE Iopamidol (Isovue-300 (61%)) 100 ml IV . DIRECTED BECKIE Sodium Chloride (Saline Flush) 10 ml FLUSH ASDIRECTED PRN PRN Reason: Keep Vein Open Meds: Medications Generic Name Dose Route Start Last Admin Trade Name Freq PRN Reason Stop Dose Admin Sodium Chloride 100 mls @ 3 mls/sec 09/01/20 13:00 Normal Saline IV ASDIRECTED BECKIE Iopamidol 100 ml 09/01/20 13:00 Isovue-300 (61%) IV . DIRECTED BECKIE Sodium Chloride 10 ml 09/01/20 12:56 Saline Flush FLUSH ASDIRECTED PRN Keep Vein Open Discontinued Medications Generic Name Dose Route Start Last Admin Trade Name Freq PRN Reason Stop Dose Admin Sodium Chloride 10 ml 09/01/20 12:57 09/01/20 13:14 Saline Flush FLUSH 09/01/20 12:58 10 ml ONETIME ONE Administration - Radiology Interpretation Free Text/Narrative:: CT of sinuses with IV contrast-pending CT Results Date: 09/01/20 Departure - Departure Time of Disposition: 13:34 Disposition: Home, Self-Care 01 Condition: Fair Clinical Impression: Epistaxis not due to trauma - Discharge Information *PRESCRIPTION DRUG MONITORING PROGRAM REVIEWED*: No *COPY OF PRESCRIPTION DRUG MONITORING REPORT IN PATIENT DENG: No Referrals: Aly Nash NP [Primary Care Provider] - Forms: ED Department Discharge Additional Instructions: Keep a humidifier running near you as much as possible day and night. We will call you when your CT is read by radiology in a few minutes to an hour or so. Return as needed. Sepsis Event Note (ED) - Evaluation Sepsis Screening Result: No Definite Risk - Focused Exam Vital Signs: Vital Signs Temp Pulse Resp BP Pulse Ox 09/01/20 12:38 63 124/51 L 95 09/01/20 12:11 36.8 C 67 18 139/70 96 09/01/20 12:08 36.8 C 67 18 139/70 96 - My Orders Last 24 Hours: My Active Orders 09/01/20 12:55 Max Facial Sinus w Cont [CT] Stat 09/01/20 12:56 Sodium Chloride 0.9% [Saline Flush] 10 ml FLUSH ASDIRECTED PRN Saline Lock Insert [OM.PC] Routine 09/01/20 13:00 Iopamidol [Isovue-300 (61%)] 100 ml IV . DIRECTED Sodium Chloride 0.9% [Normal Saline] 100 ml IV ASDIRECTED - Assessment/Plan Last 24 Hours: My Active Orders 09/01/20 12:55 Max Facial Sinus w Cont [CT] Stat 09/01/20 12:56 Sodium Chloride 0.9% [Saline Flush] 10 ml FLUSH ASDIRECTED PRN Saline Lock Insert [OM.PC] Routine 09/01/20 13:00 Iopamidol [Isovue-300 (61%)] 100 ml IV . DIRECTED Sodium Chloride 0.9% [Normal Saline] 100 ml IV ASDIRECTED
[2020-09-01] MEDS ORDERED: Sodium Chloride 0.9% 10 ML Syringe FLUSH PRN (12:56)
[2020-09-01] MEDS ORDERED: Sodium Chloride 0.9% 10 ML Syringe FLUSH ONE (12:57)
[2020-09-01] MEDS ORDERED: Iopamidol 612 MG/ML 100 ML Bottle IV SCH (13:00)
[2020-09-01] MEDS ORDERED: Sodium Chloride 0.9% 100 ML IV SCH (13:00)
--- NOTE | 2020-09-01 14:06 | CRLCT ---
INDICATION: Intermittent pass of clots from the left sinus for 1 month. TECHNIQUE: CT images were acquired through the facial bones following administration of intravenous contrast. COMPARISON: None. FINDINGS Small chronic appearing right lamina papyracea defect. The facial bones are otherwise intact. No soft tissue swelling to suggest acute fracture. Mild mucosal thickening in the maxillary sinuses. The ethmoid infundibula are widely patent. Minimal mucosal thickening in the frontal recesses. The frontal sinus drainage pathways are patent. Mild mucosal thickening in the ethmoid air cells. Mild mucosal thickening in the sphenoid sinuses. The left sphenoethmoidal recess is widely patent. The right sphenoethmoidal recess is partially opacified. There is 6 mm leftward nasal septal deviation with prominent 7 mm leftward directed septal spur contacting the left inferior nasal turbinate. Moderate opacification of the superior right nasal cavity is nonspecific, though may relate to secretions/debris. Trace left mastoid fluid. Atherosclerotic calcifications at the carotid bifurcations. IMPRESSION: 1. Mild chronic paranasal sinus mucosal disease. No air-fluid levels to suggest acute sinusitis. 2. Moderate opacification of the superior right nasal cavity is nonspecific, though may relate to secretions/debris. Direct visualization could be performed for further assessment. 3. Moderately pronounced leftward nasal septal deviation with large leftward directed septal spur contacting the left inferior nasal turbinate. Please note that all CT scans at this facility use dose modulation, iterative reconstruction, and/or weight-based dosing when appropriate to reduce radiation dose to as low as reasonably achievable. Dictated by Alex Georges MD @ Sep 01 2020 1:56PM Signed by Dr. Alex Georges @ Sep 01 2020 2:04PM
== END 2020-09-01 13:40 | disposition home or self-care (01) ==
LOC: JP.ED 11:48
DX: R04.0 Epistaxis (principal); I11.0 Hypertensive heart disease with heart failure; I50.9 Heart failure, unspecified; E78.00 Pure hypercholesterolemia, unspecified; I25.2 Old myocardial infarction; Z86.73 Personal history of transient ischemic attack (TIA), and cerebral infarction without residual deficits; F31.9 Bipolar disorder, unspecified; F41.9 Anxiety disorder, unspecified; M19.90 Unspecified osteoarthritis, unspecified site; E11.9 Type 2 diabetes mellitus without complications; E66.9 Obesity, unspecified; Z79.01 Long term (current) use of anticoagulants; Z79.02 Long term (current) use of antithrombotics/antiplatelets; Z68.41 Body mass index [BMI] 40.0-44.9, adult; Z79.82 Long term (current) use of aspirin; Z79.4 Long term (current) use of insulin; Z79.899 Other long term (current) drug therapy
CPT/HCPCS: 70487; 99283; Q9967

== ENCOUNTER 2020-09-06 16:00 | Inpatient (IN) | payer MEDICARE, BC ==
[2020-09-06] MEDS ORDERED: Sodium Chloride 0.9% 10 ML Syringe FLUSH PRN (16:12)
--- NOTE | 2020-09-06 16:42 | EDM.PDOC ---
ED HPI GENERAL MEDICAL PROBLEM - General Chief Complaint: General Stated Complaint: WEAKNESS VIA [facility] Time Seen by Provider: 09/06/20 16:25 Source of Information: Reports: Patient, EMS, Old Records, RN History Limitations: Reports: No Limitations - History of Present Illness INITIAL COMMENTS - FREE TEXT/NARRATIVE: 69 yo recent stent placement was seen here in the ER once since then for epistaxis. He was doing well until yesterday when he demonstrated increased weakness and was sleeping more. He did have some diarrhea at the beginning of the week that has since resolved. He has not had any subjective SOB, chest pain or fever. Today he was unable to get up due to his weakness so EMS was called and they transported him. There is a hx of alcohol abuse, but there is no report of heavy drinking recently. Sleeping more the last 2 days, hard to keep awake. Had Covid in July. Onset: Gradual Onset Date: 09/04/20 Duration: Day(s): (2), Getting Worse Location: Reports: Generalized Quality: Reports: Other (pain not reported) Severity: Severe Improves with: Reports: None Worsens with: Reports: Other (? time) Context: Reports: Other (See HPI) Associated Symptoms: Reports: Malaise, Weakness. Denies: Chest Pain, Cough, Diaphoresis, Fever/Chills, Headaches, Nausea/Vomiting, Seizure, Shortness of Breath, Syncope Treatments STOCKHOLDER: Reports: Other (see below) (none) Neck Pain Score (Numeric/FACES): 8 - Related Data Allergies Allergy/AdvReac Type Severity Reaction Status Date / Time No Known Allergies Allergy Verified 09/06/20 16:10 Home Meds: Home Meds Furosemide [Lasix] 40 mg PO DAILY 01/17/14 [History] Losartan [Cozaar] 100 mg PO DAILY 01/17/14 [History] allopurinoL [Zyloprim] 150 mg PO DAILY 01/17/14 [History] metFORMIN [metFORMIN XR] 1,000 mg PO BIDMEALS 01/17/14 [History] [place]-3S/DHA/Epa/Fish Oil [[place]-3 Fish Oil 1,000 mg Sfgl] 1 tab PO TID 10/27/18 [History] Apixaban [Eliquis] 5 mg PO BID 09/01/20 [History] Clopidogrel [Plavix] 75 mg PO DAILY 09/01/20 [History] Cyanocobalamin (Vitamin B-12) [Vitamin B-12] 250 mcg PO DAILY 09/01/20 [History] Fluticasone Furoate [Arnuity Ellipta] 1 spray IH ASDIRECTED PRN 09/01/20 [History] Folic Acid 1 mg PO DAILY 09/01/20 [History] Insulin Glarg,Human.Rec.Analog [Lantus Solostar] 12 unit SUBCUT BEDTIME 09/01/20 [History] Magnesium Oxide [Magnesium] 500 mg PO BID 09/01/20 [History] Nitroglycerin [Nitrostat] 0.4 mg SL ASDIRECTED 09/01/20 [History] Omeprazole 40 mg PO DAILY 09/01/20 [History] Oxymetazoline [Afrin Original 0.05% Nasal [place]] 1 inh UMESH ASDIRECTED 09/01/20 [History] atorvaSTATin [Lipitor] 80 mg PO BEDTIME 09/01/20 [History] carvediloL [Carvedilol] 6.25 mg PO BID 09/01/20 [History] chlordiazePOXIDE [Librium] 10 mg PO BID 09/01/20 [History] Past Medical History HEENT History: Reports: Allergic Rhinitis, Cataract, Impaired Vision Cardiovascular History: Reports: Heart Failure, High Cholesterol, Hypertension, [place], Stents Other Cardiovascular History: enlarged aorta Respiratory History: Reports: Sleep Apnea Gastrointestinal History: Reports: Chronic Constipation, Chronic Diarrhea, Diverticulosis, Hemorrhoids Genitourinary History: Reports: Renal Calculus Musculoskeletal History: Reports: Back Pain, Chronic, Neck Pain, Chronic, Osteoarthritis, Other (See Below) Other Musculoskeletal History: left shoulder Neurological History: Reports: CVA Other Neuro History: vertebral artery occlusion Psychiatric History: Reports: Addiction, Anxiety, Bipolar, Depression, Other (See Below) Other Psychiatric History: major depressive disorder Endocrine/Metabolic History: Reports: Diabetes, Type II, Obesity/BMI 30+ Hematologic History: Reports: Anticoagulation Therapy Immunologic History: Reports: None Oncologic (Cancer) History: Reports: Prostate Dermatologic History: Reports: None - Infectious Disease History Infectious Disease History: Reports: Chicken Pox - Past Surgical History Head Surgeries/Procedures: Reports: None HEENT Surgical History: Reports: Cataract Surgery Cardiovascular Surgical History: Reports: Coronary Artery Stent, Other (See Below) Other Cardiovascular Surgeries/Procedures: ANGIOGRAM ABAOUT 20 YEARS AGO. oversized aorta Respiratory Surgical History: Reports: None GI Surgical History: Reports: Cholecystectomy, Colonoscopy, Hernia, Abdominal Male Surgical History: Reports: Prostatectomy, Other (See Below) Other Male Surgeries/Procedures: PILIDINOL CYST SURGERY Endocrine Surgical History: Reports: None Neurological Surgical History: Reports: Spinal Fusion, Other (See Below) Other Neurological Surgeries/Procedures: Spinal cord stimulator Musculoskeletal Surgical History: Reports: Shoulder Surgery Oncologic Surgical History: Reports: None Dermatological Surgical History: Reports: None Social & Family History - Family History Family Medical History: No Pertinent Family History - Tobacco Use Tobacco Use Status *Q: Never Tobacco User - Caffeine Use Caffeine Use: Reports: None - Recreational Drug Use Recreational Drug Use: No ED ROS GENERAL - Review of Systems Review Of Systems: See Below Constitutional: Reports: Malaise, Weakness (generalized) HEENT: Reports: No Symptoms Respiratory: Reports: No Symptoms Cardiovascular: Reports: No Symptoms Endocrine: Reports: No Symptoms GI/Abdominal: Reports: Diarrhea (early in the week, now gone) : Reports: No Symptoms Musculoskeletal: Reports: No Symptoms Skin: Reports: No Symptoms Neurological: Reports: No Symptoms ED EXAM, GENERAL - Physical Exam Exam: See Below Exam Limited By: No Limitations General Appearance: Alert, WD/WN, No Apparent Distress, Lethargic, Obese Eye Exam: Bilateral Eye: Normal Inspection Ears: Normal External Exam, Normal Canal, Hearing Grossly Normal Ear Exam: Bilateral Ear: Auricle Normal, Canal Normal Nose: Normal Inspection, No Blood Throat/Mouth: Normal Inspection, Normal Lips, Normal Oropharynx, Normal Voice, No Airway Compromise Head: Atraumatic, Normocephalic Neck: Normal Inspection Respiratory/Chest: No Respiratory Distress, Lungs Clear, Normal Breath Sounds, No Accessory Muscle Use Cardiovascular: Regular Rate, Rhythm, No Edema GI/Abdominal: Normal Bowel Sounds, Soft, Non-Tender, No Distention, Other (obese). No: Distended, Guarding, Rigid, Rebound, Tender Back Exam: Normal Inspection. No: CVA Tenderness (R), CVA Tenderness (L) Extremities: Normal Inspection, Normal Range of Motion, Non-Tender, No Pedal Edema Neurological: Alert, Oriented, CN II-XII Intact, Normal Cognition, No Motor/S ensory Deficits Psychiatric: Normal Affect, Normal Mood Skin Exam: Warm, Dry, Intact, Normal Color, No Rash Course - Vital Signs Text/Narrative:: Discussed with Piper Cody @ [id number] Last Recorded V/S: Last Vital Signs Temp 36.7 C 09/06/20 16:09 Pulse 83 09/06/20 17:37 Resp 16 09/06/20 17:37 BP 121/62 09/06/20 17:37 Pulse Ox 84 L 09/06/20 17:37 - Orders/Labs/Meds Orders: Active Orders 24 hr Category Date Time Status CORONAVIRUS COVID-19 RAPID [MOLEC] Stat Lab 09/06/20 17:59 Received D-DIMER QUANTITATIVE [COAG] Stat Lab 09/06/20 17:56 Ordered UA W/MICROSCOPIC [URIN] Stat Lab 09/06/20 16:11 Ordered Sodium Chloride 0.9% [Saline Flush] Med 09/06/20 16:12 Active 10 ml FLUSH ASDIRECTED PRN Saline Lock Insert [OM.PC] Routine Oth 09/06/20 16:12 Ordered Medication Orders Sodium Chloride (Saline Flush) 10 ml FLUSH ASDIRECTED PRN PRN Reason: Keep Vein Open Last Admin: 09/06/20 16:45 Dose: 10 ml Documented by: PREILOR Labs: Laboratory Tests 09/06/20 09/06/20 09/06/20 Range/Units 16:20 16:20 16:20 WBC 8.5 (4.5-11.0) K/uL RBC 3.79 L (4.30-5.90) M/uL Hgb 11.9 L (12.0-15.0) g/dL Hct 38.5 L (40.0-54.0) % MCV 102 H (80-98) fL MCH 31 (27-31) pg MCHC 31 L (32-36) % Plt Count 269 (150-400) K/uL Puncture Site ABG pH (7.350-7.450) ABG pCO2 (35.0-42.0) mmHg ABG pO2 (75.0-100.0) mmHg ABG HCO3 (22.0-26.0) mmol/L ABG Total CO2 (23.0-27.0) mmol/L ABG O2 Saturation (95.0-98.0) % ABG O2 Content (15.0-23.0) %vol ABG Base Excess mm/L ABG Hemoglobin (13.5-18.0) g/dL ABG Oxyhemoglobin % ABG Carboxyhemoglobin (0.0-1.6) % ABG Methemoglobin % [place] Test O2 Delivery Device Sodium 138 L (140-148) mmol/L Potassium 5.1 (3.6-5.2) mmol/L Chloride 102 (100-108) mmol/L Carbon Dioxide 27 (21-32) mmol/L Anion Gap 14.1 H (5.0-14.0) mmol/L BUN 17 (7-18) mg/dL Creatinine 1.6 H (0.8-1.3) mg/dL Est Cr Clr Drug Dosing 40.74 mL/min Estimated GFR (MDRD) 43 L (>60) Glucose 150 H (74-106) mg/dL Calcium 9.2 (8.5-10.1) mg/dL Magnesium 1.7 L (1.8-2.4) mg/dL Ammonia (11-32) mmol/L Troponin I < 0.017 (0.000-0.056) ng/mL TSH, Ultra Sensitive (0.358-3.740) uIU/mL Ethyl Alcohol mg/dL 09/06/20 09/06/20 09/06/20 Range/Units 16:20 16:21 16:39 WBC (4.5-11.0) K/uL RBC (4.30-5.90) M/uL Hgb (12.0-15.0) g/dL Hct (40.0-54.0) % MCV (80-98) fL MCH (27-31) pg MCHC (32-36) % Plt Count (150-400) K/uL Puncture Site ABG pH (7.350-7.450) ABG pCO2 (35.0-42.0) mmHg ABG pO2 (75.0-100.0) mmHg ABG HCO3 (22.0-26.0) mmol/L ABG Total CO2 (23.0-27.0) mmol/L ABG O2 Saturation (95.0-98.0) % ABG O2 Content (15.0-23.0) %vol ABG Base Excess mm/L ABG Hemoglobin (13.5-18.0) g/dL ABG Oxyhemoglobin % ABG Carboxyhemoglobin (0.0-1.6) % ABG Methemoglobin % [place] Test O2 Delivery Device Sodium (140-148) mmol/L Potassium (3.6-5.2) mmol/L Chloride (100-108) mmol/L Carbon Dioxide (21-32) mmol/L Anion Gap (5.0-14.0) mmol/L BUN (7-18) mg/dL Creatinine (0.8-1.3) mg/dL Est Cr Clr Drug Dosing mL/min Estimated GFR (MDRD) (>60) Glucose (74-106) mg/dL Calcium (8.5-10.1) mg/dL Magnesium (1.8-2.4) mg/dL Ammonia 26 (11-32) mmol/L Troponin I (0.000-0.056) ng/mL TSH, Ultra Sensitive 8.063 H (0.358-3.740) uIU/mL Ethyl Alcohol < 3 mg/dL 09/06/20 Range/Units 17:40 WBC (4.5-11.0) K/uL RBC (4.30-5.90) M/uL Hgb (12.0-15.0) g/dL Hct (40.0-54.0) % MCV (80-98) fL MCH (27-31) pg MCHC (32-36) % Plt Count (150-400) K/uL Puncture Site Rt radial ABG pH 7.317 L (7.350-7.450) ABG pCO2 52.3 H (35.0-42.0) mmHg ABG pO2 49.1 L (75.0-100.0) mmHg ABG HCO3 26.0 (22.0-26.0) mmol/L ABG Total CO2 24.1 (23.0-27.0) mmol/L ABG O2 Saturation 82.2 L (95.0-98.0) % ABG O2 Content 13.4 L (15.0-23.0) %vol ABG Base Excess -0.2 mm/L ABG Hemoglobin 11.9 L (13.5-18.0) g/dL ABG Oxyhemoglobin 80.3 % ABG Carboxyhemoglobin 1.7 H (0.0-1.6) % ABG Methemoglobin 0.6 % [place] Test Pass O2 Delivery Device Room air Sodium (140-148) mmol/L Potassium (3.6-5.2) mmol/L Chloride (100-108) mmol/L Carbon Dioxide (21-32) mmol/L Anion Gap (5.0-14.0) mmol/L BUN (7-18) mg/dL Creatinine (0.8-1.3) mg/dL Est Cr Clr Drug Dosing mL/min Estimated GFR (MDRD) (>60) Glucose (74-106) mg/dL Calcium (8.5-10.1) mg/dL Magnesium (1.8-2.4) mg/dL Ammonia (11-32) mmol/L Troponin I (0.000-0.056) ng/mL TSH, Ultra Sensitive (0.358-3.740) uIU/mL Ethyl Alcohol mg/dL Meds: Medications Generic Name Dose Route Start Last Admin Trade Name Freq PRN Reason Stop Dose Admin Sodium Chloride 10 ml 09/06/20 16:12 09/06/20 16:45 Saline Flush FLUSH 10 ml ASDIRECTED PRN Administration Keep Vein Open Discontinued Medications Generic Name Dose Route Start Last Admin Trade Name Freq PRN Reason Stop Dose Admin Sodium Chloride 1,000 mls @ 999 mls/hr 09/06/20 16:54 09/06/20 17:00 Normal Saline IV 09/06/20 17:54 999 mls/hr .BOLUS ONE Administration - Radiology Interpretation Free Text/Narrative:: CXR- Impression: Developing ground-glass opacities within the bilateral hemithoraces which may represent infiltrates. Dictated by Lopez Bowden MD @ Sep 06 2020 5:33PM head CT scan-age related changes only. Departure - Departure Time of Disposition: 18:20 Disposition: Admitted As Inpatient 66 Condition: Fair Clinical Impression: Hypoxia, Weakness, Elevated TSH - Discharge Information *PRESCRIPTION DRUG MONITORING PROGRAM REVIEWED*: Not Applicable *COPY OF PRESCRIPTION DRUG MONITORING REPORT IN PATIENT DENG: Not Applicable Referrals: Aly Nash NP [Primary Care Provider] - Forms: ED Department Discharge Sepsis Event Note (ED) - Evaluation Sepsis Screening Result: No Definite Risk - Focused Exam Vital Signs: Vital Signs Temp Pulse Resp BP Pulse Ox 09/06/20 17:37 83 16 121/62 84 L 09/06/20 16:56 84 120/54 L 09/06/20 16:26 88 127/61 09/06/20 16:09 36.7 C 90 18 102/45 L 92 L 09/06/20 16:04 36.7 C 90 18 102/45 L 92 L - My Orders Last 24 Hours: My Active Orders 09/06/20 16:11 UA W/MICROSCOPIC [URIN] Stat 09/06/20 16:12 Sodium Chloride 0.9% [Saline Flush] 10 ml FLUSH ASDIRECTED PRN Saline Lock Insert [OM.PC] Routine 09/06/20 17:56 D-DIMER QUANTITATIVE [COAG] Stat 09/06/20 17:59 CORONAVIRUS COVID-19 RAPID [MOLEC] Stat - Assessment/Plan Last 24 Hours: My Active Orders 09/06/20 16:11 UA W/MICROSCOPIC [URIN] Stat 09/06/20 16:12 Sodium Chloride 0.9% [Saline Flush] 10 ml FLUSH ASDIRECTED PRN Saline Lock Insert [OM.PC] Routine 09/06/20 17:56 D-DIMER QUANTITATIVE [COAG] Stat 09/06/20 17:59 CORONAVIRUS COVID-19 RAPID [MOLEC] Stat
[2020-09-06] MEDS ORDERED: Sodium Chloride 0.9% 1,000 ML IV ONE (16:54)
--- NOTE | 2020-09-06 17:38 | CRLCR ---
Indication: Hypoxia Comparison: Two-view chest July 08, 2020 Technique: Single AP view chest Findings: There is hyperinflation and chronic interstitial change. There are developing questionable ground-glass opacities seen within the bilateral hemithoraces which may represent developing infiltrate. The cardiac silhouette is stable. The bony thorax is grossly intact. Impression: Developing ground-glass opacities within the bilateral hemithoraces which may represent infiltrates. Dictated by Lopez Bowden MD @ Sep 06 2020 5:33PM Signed by Dr. Lopez Bowden @ Sep 06 2020 5:37PM
--- NOTE | 2020-09-06 17:52 | CRLCT ---
Indication: Lethargy Technique: Volumetric multidetector CT images of the head were obtained without the administration of low osmolar intravenous contrast. Comparison: None available Findings: There is no intra-axial or extra-axial fluid collection. There is no mass effect or midline shift. There is age-related cortical atrophy with mild sulcal widening and ex vacuo dilatation of the lateral ventricles. There are chronic small vessel disease changes in the subcortical and periventricular white matter without lost batres-white differentiation. The orbits and their contents are grossly within normal limits. The bony calvarium is grossly intact. The paranasal sinuses are clear. The mastoid air cells are well aerated. Impression: 1. Age-related changes of the brain without acute intracranial abnormality. Please note that all CT scans at this facility use dose modulation, iterative reconstruction, and/or weight-based dosing when appropriate to reduce radiation dose to as low as reasonably achievable. Dictated by Lopez Bowden MD @ Sep 06 2020 5:45PM Signed by Dr. Lopez Bowden @ Sep 06 2020 5:50PM
[2020-09-06] MEDS ORDERED: Sodium Chloride 0.9% 1,000 ML IV SCH (18:30)
[2020-09-06] MEDS ORDERED: Azithromycin 500 MG in Sodium Chloride 0.9% 250 ML IV SCH (18:30)
[2020-09-06] MEDS ORDERED: cefTRIAXone 1 GM in Sodium Chloride 0.9% 50 ML IV SCH (19:00)
--- NOTE | 2020-09-06 19:41 | PCM.HP.2 ---
H&P History of Present Illness - General Date of Service: 09/06/20 Admit Problem/Dx: Admission Diagnosis/Problem Admission Diagnosis/Problem Pneumonia Source of Information: Patient, EMS Notes Reviewed, Family (), Provider, RN - History of Present Illness Initial Comments - Free Text/Narative: chief complaint: weakness 69 yo recent stent placement was seen here in the ER once since then for epi staxis. He was doing well until yesterday when he demonstrated increased weakness and was sleeping more. He did have some diarrhea at the beginning of the week that has since resolved. He has not had any subjective SOB, chest pain or fever. Today he was unable to get up due to his weakness so EMS was called and they transported him. Sleeping more the last 2 days, hard to keep awake. Covid in July 08, 2020 - recovered without hospitalization Non-STEMI 08/22/2020 [facility] [place] cardiac stents x 2 08/28/2020. [facility], [place] hx of alcohol abuse, but there is no report of heavy drinking recently. reports he drinks one large bottle of alcohol per week. Onset of Symptoms: Reports: Gradual Duration of Symptoms: Reports: Day(s):, Getting Worse Location: Reports: Generalized Quality: Reports: Other (weakness) Severity: Severe Improves with: Reports: None Worsens with: Reports: None Associated Symptoms: Reports: Confusion, Loss of Appetite, Weakness Neck Pain Score (Numeric/FACES): 8 - Related Data Allergies/Adverse Reactions: Allergies Allergy/AdvReac Type Severity Reaction Status Date / Time No Known Allergies Allergy Verified 09/06/20 16:10 Home Medications: Home Meds Furosemide [Lasix] 40 mg PO DAILY 01/17/14 [History] Losartan [Cozaar] 100 mg PO DAILY 01/17/14 [History] allopurinoL [Zyloprim] 150 mg PO DAILY 01/17/14 [History] metFORMIN [metFORMIN XR] 1,000 mg PO BIDMEALS 01/17/14 [History] [place]-3S/DHA/Epa/Fish Oil [[place]-3 Fish Oil 1,000 mg Sfgl] 1 tab PO TID 10/27/18 [History] Apixaban [Eliquis] 5 mg PO BID 09/01/20 [History] Clopidogrel [Plavix] 75 mg PO DAILY 09/01/20 [History] Cyanocobalamin (Vitamin B-12) [Vitamin B-12] 250 mcg PO DAILY 09/01/20 [History] Fluticasone Furoate [Arnuity Ellipta] 1 spray IH ASDIRECTED PRN 09/01/20 [History] Folic Acid 1 mg PO DAILY 09/01/20 [History] Insulin Glarg,Human.Rec.Analog [Lantus Solostar] 12 unit SUBCUT BEDTIME 09/01/20 [History] Magnesium Oxide [Magnesium] 500 mg PO BID 09/01/20 [History] Nitroglycerin [Nitrostat] 0.4 mg SL ASDIRECTED 09/01/20 [History] Omeprazole 40 mg PO DAILY 09/01/20 [History] Oxymetazoline [Afrin Original 0.05% Nasal [place]] 1 inh UMESH ASDIRECTED 09/01/20 [History] atorvaSTATin [Lipitor] 80 mg PO BEDTIME 09/01/20 [History] carvediloL [Carvedilol] 6.25 mg PO BID 09/01/20 [History] chlordiazePOXIDE [Librium] 10 mg PO BID 09/01/20 [History] Past Medical History HEENT History: Reports: Allergic Rhinitis, Cataract, Impaired Vision Cardiovascular History: Reports: Heart Failure, High Cholesterol, Hypertension, VT, Stents Other Cardiovascular History: enlarged aorta Respiratory History: Reports: Sleep Apnea Other Respiratory History: c-pap Gastrointestinal History: Reports: Chronic Constipation, Chronic Diarrhea, Diverticulosis, Hemorrhoids Genitourinary History: Reports: Renal Calculus Musculoskeletal History: Reports: Back Pain, Chronic, Neck Pain, Chronic, Osteoarthritis, Other (See Below) Other Musculoskeletal History: left shoulder Neurological History: Reports: CVA Other Neuro History: vertebral artery occlusion Psychiatric History: Reports: Addiction, Anxiety, Bipolar, Depression, Other (See Below) Other Psychiatric History: major depressive disorder Endocrine/Metabolic History: Reports: Diabetes, Type II, Obesity/BMI 30+ Hematologic History: Reports: Anticoagulation Therapy Immunologic History: Reports: None Oncologic (Cancer) History: Reports: Prostate Dermatologic History: Reports: None - Infectious Disease History Infectious Disease History: Reports: Chicken Pox - Past Surgical History Head Surgeries/Procedures: Reports: None HEENT Surgical History: Reports: Cataract Surgery Cardiovascular Surgical History: Reports: Coronary Artery Stent, Other (See Below) Other Cardiovascular Surgeries/Procedures: ANGIOGRAM ABAOUT 20 YEARS AGO. oversized aorta Respiratory Surgical History: Reports: None GI Surgical History: Reports: Cholecystectomy, Colonoscopy, Hernia, Abdominal Male Surgical History: Reports: Prostatectomy, Other (See Below) Other Male Surgeries/Procedures: PILIDINOL CYST SURGERY Endocrine Surgical History: Reports: None Neurological Surgical History: Reports: Spinal Fusion, Other (See Below) Other Neurological Surgeries/Procedures: Spinal cord stimulator Musculoskeletal Surgical History: Reports: Shoulder Surgery Oncologic Surgical History: Reports: None Dermatological Surgical History: Reports: None Social & Family History - Family History Family Medical History: No Pertinent Family History - Tobacco Use Tobacco Use Status *Q: Never Tobacco User - Caffeine Use Caffeine Use: Reports: None - Recreational Drug Use Recreational Drug Use: No - Living Situation & Occupation Living situation: Reports: , with Family Occupation: Retired (lives with , [place], [place].) H&P Review of Systems - Review of Systems: Review Of Systems: See Below General: Reports: Weakness, Fatigue, Decreased Appetite HEENT: Reports: Glasses Pulmonary: Reports: No Symptoms Cardiovascular: Reports: No Symptoms Gastrointestinal: Reports: No Symptoms Genitourinary: Reports: No Symptoms Musculoskeletal: Reports: Back Pain (back stimulator in place) Skin: Reports: No Symptoms Psychiatric: Reports: Confusion Neurological: Reports: Confusion Hematologic/Lymphatic: Reports: Easy Bleeding, Easy Bruising Immunologic: Reports: No Symptoms Exam - Exam Exam: See Below - Vital Signs Vital Signs: Last Vital Signs Temp 36.7 C 09/06/20 16:09 Pulse 84 09/06/20 18:37 Resp 18 09/06/20 18:16 BP 137/73 09/06/20 18:37 Pulse Ox 94 L 09/06/20 18:37 Weight: 124.738 kg - Exam Quality Assessment: Supplemental Oxygen, DVT Prophylaxis, Other (69 year old allyson e in poor physical condition. appears much older than stated age.) General: Cooperative, Mild Distress, Other (alert with rambling speech. not making any sense with speaking.) HEENT: PERRLA, Hearing Intact, Mucosa Moist & [place], Nares Patent, Other (eye sclera injected) Neck: Supple, Trachea Midline Lungs: Decreased Breath Sounds, Other (abdominal breathing- states this is normal.) Cardiovascular: Regular Rate, Regular Rhythm, Normal S1, Normal S2 GI/Abdominal Exam: Normal Bowel Sounds, Soft, Distended, Hepatomegaly (Male) Exam: Deferred Rectal (Males) Exam: Deferred Back Exam: Normal Inspection, Full Range of Motion Peripheral Pulses: 2+: Radial (L), Radial (R), Dorsalis Pedis (L), Dorsalis Pedis (R) Skin: Warm, Dry, Intact, Petechia, Ecchymosis (multi sites of bruising to arms and legs.) Neurological: Reflexes Equal Bilateral, Strength Equal Bilateral Neuro Extensive - Mental Status: Alert Psychiatric: Alert, Normal Affect, Normal Mood - Patient Data Lab Results Last 24 hrs: Laboratory Results - last 24 hr 09/06/20 09/06/20 09/06/20 Range/Units 16:20 16:20 16:20 WBC 8.5 (4.5-11.0) K/uL RBC 3.79 L (4.30-5.90) M/uL Hgb 11.9 L (12.0-15.0) g/dL Hct 38.5 L (40.0-54.0) % MCV 102 H (80-98) fL MCH 31 (27-31) pg MCHC 31 L (32-36) % Plt Count 269 (150-400) K/uL PT (9.5-12.0) sec INR (0.80-1.20) D-Dimer, Quantitative (0.0-500.0) ng/mL Puncture Site ABG pH (7.350-7.450) ABG pCO2 (35.0-42.0) mmHg ABG pO2 (75.0-100.0) mmHg ABG HCO3 (22.0-26.0) mmol/L ABG Total CO2 (23.0-27.0) mmol/L ABG O2 Saturation (95.0-98.0) % ABG O2 Content (15.0-23.0) %vol ABG Base Excess mm/L ABG Hemoglobin (13.5-18.0) g/dL ABG Oxyhemoglobin % ABG Carboxyhemoglobin (0.0-1.6) % ABG Methemoglobin % Frederick Test O2 Delivery Device Sodium 138 L (140-148) mmol/L Potassium 5.1 (3.6-5.2) mmol/L Chloride 102 (100-108) mmol/L Carbon Dioxide 27 (21-32) mmol/L Anion Gap 14.1 H (5.0-14.0) mmol/L BUN 17 (7-18) mg/dL Creatinine 1.6 H (0.8-1.3) mg/dL Est Cr Clr Drug Dosing 40.74 mL/min Estimated GFR (MDRD) 43 L (>60) Glucose 150 H (74-106) mg/dL Calcium 9.2 (8.5-10.1) mg/dL Magnesium 1.7 L (1.8-2.4) mg/dL Total Bilirubin (0.2-1.0) mg/dL AST (15-37) U/L ALT (12-78) U/L Alkaline Phosphatase (46-116) U/L Ammonia (11-32) mmol/L Troponin I < 0.017 (0.000-0.056) ng/mL NT-Pro-B Natriuret Pep (5-125) pg/mL Total Protein (6.4-8.2) g/dL Albumin (3.4-5.0) g/dL Globulin (2.3-3.5) g/dL Albumin/Globulin Ratio (1.2-2.2) Amylase (25-115) U/L Lipase (73-393) U/L TSH, Ultra Sensitive (0.358-3.740) uIU/mL Urine Color (YELLOW) Urine Appearance (CLEAR) Urine pH (5.0-8.0) Ur Specific [place] (1.008-1.030) Urine Protein (NEGATIVE) mg/dL Urine Glucose (UA) (NEGATIVE) mg/dL Urine Ketones (NEGATIVE) mg/dL Urine Occult Blood (NEGATIVE) Urine Nitrite (NEGATIVE) Urine Bilirubin (NEGATIVE) Urine Urobilinogen (0.2-1.0) EU/dL Ur Leukocyte Esterase (NEGATIVE) Urine RBC (0-5) Urine WBC (0-5) Ur Epithelial Cells Amorphous Sediment Urine Bacteria Urine Mucus Ethyl Alcohol mg/dL SARS CoV-2 RNA Rapid LEONEL 09/06/20 09/06/20 09/06/20 Range/Units 16:20 16:20 16:21 WBC (4.5-11.0) K/uL RBC (4.30-5.90) M/uL Hgb (12.0-15.0) g/dL Hct (40.0-54.0) % MCV (80-98) fL MCH (27-31) pg MCHC (32-36) % Plt Count (150-400) K/uL PT (9.5-12.0) sec INR (0.80-1.20) D-Dimer, Quantitative 1217.89 H (0.0-500.0) ng/mL Puncture Site ABG pH (7.350-7.450) ABG pCO2 (35.0-42.0) mmHg ABG pO2 (75.0-100.0) mmHg ABG HCO3 (22.0-26.0) mmol/L ABG Total CO2 (23.0-27.0) mmol/L ABG O2 Saturation (95.0-98.0) % ABG O2 Content (15.0-23.0) %vol ABG Base Excess mm/L ABG Hemoglobin (13.5-18.0) g/dL ABG Oxyhemoglobin % ABG Carboxyhemoglobin (0.0-1.6) % ABG Methemoglobin % [place] Test O2 Delivery Device Sodium (140-148) mmol/L Potassium (3.6-5.2) mmol/L Chloride (100-108) mmol/L Carbon Dioxide (21-32) mmol/L Anion Gap (5.0-14.0) mmol/L BUN (7-18) mg/dL Creatinine (0.8-1.3) mg/dL Est Cr Clr Drug Dosing mL/min Estimated GFR (MDRD) (>60) Glucose (74-106) mg/dL Calcium (8.5-10.1) mg/dL Magnesium (1.8-2.4) mg/dL Total Bilirubin (0.2-1.0) mg/dL AST (15-37) U/L ALT (12-78) U/L Alkaline Phosphatase (46-116) U/L Ammonia 26 (11-32) mmol/L Troponin I (0.000-0.056) ng/mL NT-Pro-B Natriuret Pep (5-125) pg/mL Total Protein (6.4-8.2) g/dL Albumin (3.4-5.0) g/dL Globulin (2.3-3.5) g/dL Albumin/Globulin Ratio (1.2-2.2) Amylase (25-115) U/L Lipase (73-393) U/L TSH, Ultra Sensitive 8.063 H (0.358-3.740) uIU/mL Urine Color (YELLOW) Urine Appearance (CLEAR) Urine pH (5.0-8.0) Ur Specific [place] (1.008-1.030) Urine Protein (NEGATIVE) mg/dL Urine Glucose (UA) (NEGATIVE) mg/dL Urine Ketones (NEGATIVE) mg/dL Urine Occult Blood (NEGATIVE) Urine Nitrite (NEGATIVE) Urine Bilirubin (NEGATIVE) Urine Urobilinogen (0.2-1.0) EU/dL Ur Leukocyte Esterase (NEGATIVE) Urine RBC (0-5) Urine WBC (0-5) Ur Epithelial Cells Amorphous Sediment Urine Bacteria Urine Mucus Ethyl Alcohol mg/dL SARS CoV-2 RNA Rapid LEONEL 09/06/20 09/06/20 09/06/20 Range/Units 16:21 16:39 17:40 WBC (4.5-11.0) K/uL RBC (4.30-5.90) M/uL Hgb (12.0-15.0) g/dL Hct (40.0-54.0) % MCV (80-98) fL MCH (27-31) pg MCHC (32-36) % Plt Count (150-400) K/uL PT 11.3 (9.5-12.0) sec INR 1.04 (0.80-1.20) D-Dimer, Quantitative (0.0-500.0) ng/mL Puncture Site Rt radial ABG pH 7.317 L (7.350-7.450) ABG pCO2 52.3 H (35.0-42.0) mmHg ABG pO2 49.1 L (75.0-100.0) mmHg ABG HCO3 26.0 (22.0-26.0) mmol/L ABG Total CO2 24.1 (23.0-27.0) mmol/L ABG O2 Saturation 82.2 L (95.0-98.0) % ABG O2 Content 13.4 L (15.0-23.0) %vol ABG Base Excess -0.2 mm/L ABG Hemoglobin 11.9 L (13.5-18.0) g/dL ABG Oxyhemoglobin 80.3 % ABG Carboxyhemoglobin 1.7 H (0.0-1.6) % ABG Methemoglobin 0.6 % [place] Test Pass O2 Delivery Device Room air Sodium (140-148) mmol/L Potassium (3.6-5.2) mmol/L Chloride (100-108) mmol/L Carbon Dioxide (21-32) mmol/L Anion Gap (5.0-14.0) mmol/L BUN (7-18) mg/dL Creatinine (0.8-1.3) mg/dL Est Cr Clr Drug Dosing mL/min Estimated GFR (MDRD) (>60) Glucose (74-106) mg/dL Calcium (8.5-10.1) mg/dL Magnesium (1.8-2.4) mg/dL Total Bilirubin (0.2-1.0) mg/dL AST (15-37) U/L ALT (12-78) U/L Alkaline Phosphatase (46-116) U/L Ammonia (11-32) mmol/L Troponin I (0.000-0.056) ng/mL NT-Pro-B Natriuret Pep (5-125) pg/mL Total Protein (6.4-8.2) g/dL Albumin (3.4-5.0) g/dL Globulin (2.3-3.5) g/dL Albumin/Globulin Ratio (1.2-2.2) Amylase (25-115) U/L Lipase (73-393) U/L TSH, Ultra Sensitive (0.358-3.740) uIU/mL Urine Color (YELLOW) Urine Appearance (CLEAR) Urine pH (5.0-8.0) Ur Specific [place] (1.008-1.030) Urine Protein (NEGATIVE) mg/dL Urine Glucose (UA) (NEGATIVE) mg/dL Urine Ketones (NEGATIVE) mg/dL Urine Occult Blood (NEGATIVE) Urine Nitrite (NEGATIVE) Urine Bilirubin (NEGATIVE) Urine Urobilinogen (0.2-1.0) EU/dL Ur Leukocyte Esterase (NEGATIVE) Urine RBC (0-5) Urine WBC (0-5) Ur Epithelial Cells Amorphous Sediment Urine Bacteria Urine Mucus Ethyl Alcohol < 3 mg/dL SARS CoV-2 RNA Rapid LEONEL 09/06/20 09/06/20 09/06/20 Range/Units 17:40 17:40 17:40 WBC (4.5-11.0) K/uL RBC (4.30-5.90) M/uL Hgb (12.0-15.0) g/dL Hct (40.0-54.0) % MCV (80-98) fL MCH (27-31) pg MCHC (32-36) % Plt Count (150-400) K/uL PT (9.5-12.0) sec INR (0.80-1.20) D-Dimer, Quantitative (0.0-500.0) ng/mL Puncture Site ABG pH (7.350-7.450) ABG pCO2 (35.0-42.0) mmHg ABG pO2 (75.0-100.0) mmHg ABG HCO3 (22.0-26.0) mmol/L ABG Total CO2 (23.0-27.0) mmol/L ABG O2 Saturation (95.0-98.0) % ABG O2 Content (15.0-23.0) %vol ABG Base Excess mm/L ABG Hemoglobin (13.5-18.0) g/dL ABG Oxyhemoglobin % ABG Carboxyhemoglobin (0.0-1.6) % ABG Methemoglobin % [place] Test O2 Delivery Device Sodium 137 L (140-148) mmol/L Potassium 5.1 (3.6-5.2) mmol/L Chloride 103 (100-108) mmol/L Carbon Dioxide 26 (21-32) mmol/L Anion Gap 13.1 (5.0-14.0) mmol/L BUN 17 (7-18) mg/dL Creatinine 1.5 H (0.8-1.3) mg/dL Est Cr Clr Drug Dosing 43.45 mL/min Estimated GFR (MDRD) 46 L (>60) Glucose 158 H (74-106) mg/dL Calcium 9.4 (8.5-10.1) mg/dL Magnesium (1.8-2.4) mg/dL Total Bilirubin 0.9 (0.2-1.0) mg/dL AST 26 (15-37) U/L ALT 37 (12-78) U/L Alkaline Phosphatase 122 H (46-116) U/L Ammonia (11-32) mmol/L Troponin I (0.000-0.056) ng/mL NT-Pro-B Natriuret Pep 501 H (5-125) pg/mL Total Protein 6.8 (6.4-8.2) g/dL Albumin 2.9 L (3.4-5.0) g/dL Globulin 3.9 H (2.3-3.5) g/dL Albumin/Globulin Ratio 0.7 L (1.2-2.2) Amylase 33 (25-115) U/L Lipase 122 (73-393) U/L TSH, Ultra Sensitive (0.358-3.740) uIU/mL Urine Color (YELLOW) Urine Appearance (CLEAR) Urine pH (5.0-8.0) Ur Specific [place] (1.008-1.030) Urine Protein (NEGATIVE) mg/dL Urine Glucose (UA) (NEGATIVE) mg/dL Urine Ketones (NEGATIVE) mg/dL Urine Occult Blood (NEGATIVE) Urine Nitrite (NEGATIVE) Urine Bilirubin (NEGATIVE) Urine Urobilinogen (0.2-1.0) EU/dL Ur Leukocyte Esterase (NEGATIVE) Urine RBC (0-5) Urine WBC (0-5) Ur Epithelial Cells Amorphous Sediment Urine Bacteria Urine Mucus Ethyl Alcohol mg/dL SARS CoV-2 RNA Rapid LEONEL 09/06/20 09/06/20 Range/Units 17:59 19:05 WBC (4.5-11.0) K/uL RBC (4.30-5.90) M/uL Hgb (12.0-15.0) g/dL Hct (40.0-54.0) % MCV (80-98) fL MCH (27-31) pg MCHC (32-36) % Plt Count (150-400) K/uL PT (9.5-12.0) sec INR (0.80-1.20) D-Dimer, Quantitative (0.0-500.0) ng/mL Puncture Site ABG pH (7.350-7.450) ABG pCO2 (35.0-42.0) mmHg ABG pO2 (75.0-100.0) mmHg ABG HCO3 (22.0-26.0) mmol/L ABG Total CO2 (23.0-27.0) mmol/L ABG O2 Saturation (95.0-98.0) % ABG O2 Content (15.0-23.0) %vol ABG Base Excess mm/L ABG Hemoglobin (13.5-18.0) g/dL ABG Oxyhemoglobin % ABG Carboxyhemoglobin (0.0-1.6) % ABG Methemoglobin % Frederick Test O2 Delivery Device Sodium (140-148) mmol/L Potassium (3.6-5.2) mmol/L Chloride (100-108) mmol/L Carbon Dioxide (21-32) mmol/L Anion Gap (5.0-14.0) mmol/L BUN (7-18) mg/dL Creatinine (0.8-1.3) mg/dL Est Cr Clr Drug Dosing mL/min Estimated GFR (MDRD) (>60) Glucose (74-106) mg/dL Calcium (8.5-10.1) mg/dL Magnesium (1.8-2.4) mg/dL Total Bilirubin (0.2-1.0) mg/dL AST (15-37) U/L ALT (12-78) U/L Alkaline Phosphatase (46-116) U/L Ammonia (11-32) mmol/L Troponin I (0.000-0.056) ng/mL NT-Pro-B Natriuret Pep (5-125) pg/mL Total Protein (6.4-8.2) g/dL Albumin (3.4-5.0) g/dL Globulin (2.3-3.5) g/dL Albumin/Globulin Ratio (1.2-2.2) Amylase (25-115) U/L Lipase (73-393) U/L TSH, Ultra Sensitive (0.358-3.740) uIU/mL Urine Color Yellow (YELLOW) Urine Appearance Clear (CLEAR) Urine pH 5.0 (5.0-8.0) Ur Specific [place] 1.020 (1.008-1.030) Urine Protein Negative (NEGATIVE) mg/dL Urine Glucose (UA) Negative (NEGATIVE) mg/dL Urine Ketones Negative (NEGATIVE) mg/dL Urine Occult Blood Negative (NEGATIVE) Urine Nitrite Negative (NEGATIVE) Urine Bilirubin Negative (NEGATIVE) Urine Urobilinogen 0.2 (0.2-1.0) EU/dL Ur Leukocyte Esterase Negative (NEGATIVE) Urine RBC 0-5 (0-5) Urine WBC 0-5 (0-5) Ur Epithelial Cells Rare Amorphous Sediment Not seen Urine Bacteria Not seen Urine Mucus Not seen Ethyl Alcohol mg/dL SARS CoV-2 RNA Rapid LEONEL Negative Result Diagrams: 09/06/20 16:20 09/06/20 17:40 Sepsis Event Note - Evaluation Sepsis Screening Result: No Definite Risk - Focused Exam Vital Signs: Vital Signs Temp Pulse Resp BP Pulse Ox 09/06/20 18:37 84 137/73 94 L 09/06/20 18:16 84 18 123/71 94 L 09/06/20 17:37 83 16 121/62 84 L 09/06/20 16:56 84 120/54 L 09/06/20 16:26 88 127/61 09/06/20 16:09 36.7 C 90 18 102/45 L 92 L 09/06/20 16:04 36.7 C 90 18 102/45 L 92 L - Problem List (1) Pneumonia SNOMED Code(s): 325929169 ICD Code: J18.9 - PNEUMONIA, UNSPECIFIED ORGANISM Status: Acute Priority: High Current Visit: Yes Qualifiers: Pneumonia type: due to unspecified organism Laterality: bilateral Lung location: lower lobe of lung Qualified Code(s): J18.9 - Pneumonia, unspecified organism (2) Diabetes mellitus type 2, insulin dependent SNOMED Code(s): 356840051 ICD Code: E11.9 - TYPE 2 DIABETES MELLITUS WITHOUT COMPLICATIONS; Z79.4 - TREATER (CURRENT) USE OF INSULIN Status: Acute Priority: High Current Visit: Yes (3) Heart disease SNOMED Code(s): 80737050 ICD Code: I51.9 - HEART DISEASE, UNSPECIFIED Status: Acute Priority: High Current Visit: Yes Problem Details: non-stemi mi on 08/22/20 cardiac stents x 2 on 08/28/20 (4) History of severe acute respiratory syndrome coronavirus 2 (SARS-CoV-2) disease SNOMED Code(s): 103474572431096169 ICD Code: Z86.19 - PERSONAL HISTORY OF OTHER INFECTIOUS AND PARASITIC DISEASES Status: Acute Priority: Low Current Visit: Yes Onset Date: ~07/08/20 (5) Sleep apnea SNOMED Code(s): 30752643 ICD Code: G47.30 - SLEEP APNEA, UNSPECIFIED Status: Acute Priority: Low Current Visit: Yes Qualifiers: Sleep apnea type: unspecified type Qualified Code(s): G47.30 - Sleep apnea, unspecified (6) Alcohol abuse, daily use SNOMED Code(s): 216033387 ICD Code: F10.10 - ALCOHOL ABUSE, UNCOMPLICATED Status: Acute Priority: High Current Visit: Yes Problem List Initiated/Reviewed/Updated: Yes Orders Last 24hrs: Active Orders 24 hr Category Date Time Status Patient Status Manage Transfer [TRANSFER] Routine ADT 09/06/20 18:50 Active [facility] Assessment [RC] ASDIRECTED Care 09/06/20 19:34 Active Oxygen Therapy Adult [Oxygen Therapy, ED] [] Care 09/06/20 18:16 Active ASDIRECTED CORONAVIRUS COVID-19 LEONEL [MOLEC] Stat Lab 09/06/20 18:37 Ordered CULTURE BLOOD [BC] Urgent Lab 09/06/20 18:45 Received CULTURE BLOOD [BC] Urgent Lab 09/06/20 19:00 Received Azithromycin [Zithromax] 500 mg Med 09/06/20 18:30 Active Sodium Chloride 0.9% [Normal Saline] 250 ml IV Q24H Sodium Chloride 0.9% [Normal Saline] 1,000 ml Med 09/06/20 18:30 Active IV ASDIRECTED Sodium Chloride 0.9% [Saline Flush] Med 09/06/20 16:12 Active 10 ml FLUSH ASDIRECTED PRN cefTRIAXone [Rocephin] 1 gm Med 09/06/20 19:00 Active Sodium Chloride 0.9% [Normal Saline] 50 ml IV Q24H Blood Culture x2 Reflex Set [OM.PC] Urgent Oth 09/06/20 18:18 Ordered Saline Lock Insert [OM.PC] Routine Oth 09/06/20 16:12 Ordered Resuscitation Status Routine Resus Stat 09/06/20 19:35 Ordered Medication Orders Ceftriaxone Sodium 1 gm/ (Sodium Chloride) 50 mls @ 100 mls/hr IV Q24H BECKIE Azithromycin 500 mg/ Sodium (Chloride) 250 mls @ 250 mls/hr IV Q24H BECKIE Last Admin: 09/06/20 18:41 Dose: 250 mls/hr Documented by: PREILOR Sodium Chloride (Normal Saline) 1,000 mls @ 75 mls/hr IV ASDIRECTED BECKIE Sodium Chloride (Saline Flush) 10 ml FLUSH ASDIRECTED PRN PRN Reason: Keep Vein Open Last Admin: 09/06/20 16:45 Dose: 10 ml Documented by: PREILOR Assessment/Plan Comment:: Assessment/Plan Comment:: ASSESSMENT AND PLAN OF CARE: PNEUMONIA This is a 69 year old male present to the ER via ambulance for two days of increased sleeping, weakness, watery diarrhea, call the ambulance because she was unable to get Jason off the toilet. He was unable to stand, confusion. denies fever, chills, body aches, or nausea. ER workup: Chest x-ray shows bilateral lower infiltrates. CT Chest Abdomen Pelvis- no acute pathology noted CBC, CMP, AMYLASE, LIPASE, TSH, PT INR, PRO BNP, LACTIC ACID, CRP Meds: IV Rocephin 1 gram and IV Azithromycin 500mg in the emergency department. Last Recorded V/S: 37.1-82-18 Blood pressure 129/62 oxygen sat. 97% NC 1 liter Pneumonia ER workup shows WBC 8.5, hgb 11.9 hct 38.5 plt 261, Chemistry Na+ 137. K+ 5.1, anion gap 17, BUN 45, Cr 1.5, GFR 46, glucose 158, CRP 2.4, Pro BNP 501, blood cultures X2 pending. Covid 19 test negative x2. -Admit to [address] [place] [address] for further monitoring- consulted with Internal Medicine Hospitalist for direction of care. -IV Normal Saline fluid bolus 2 liter, 3rd liter ordered at 75ml/hr -IV Antibiotic; Rocephin 2 gram IV every 24 hours -IV Zithromax 500mg given one time in ER -IV Levoquin 750 mg every 48 hours -oxygen to keep saturations greater than 95% -nebulizer treatments - Albuterol and Duo nebs as directed prn. -Advise to notify nurses of any chest pain or other symptoms -blood cultures x2 pending -And a.m. labs: CBC, BMP Diabetes Type 2 - blood glucose over the past two days 126, 127, 142, and 139. Evening dose of Lantus 12 units -Insulin long acting Lantus 12 units subcut -Insulin short acting low dose sliding scale coverage -Blood glucose testing before meals and at bedtime History of Covid 19, Mr. 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 -CIWAA Protocal Maintenance issues -Orders home meds: chronic medication -Nutrition: consistent carb diet -Travis catheter -not indicated at this time -DVT: Eliquis 5mg po bid -PPI; IV Protonix 40mg daily CODE STATUS: DNR/DNI Admission status: Admit to [address] [place] [address] justification. This patient will be admitted for inpatient services and is medically appropriate meeting medical necessity for inpatient admission as outlined in my documentation. I reasonably expect the patient will require inpatient services that span. Time over 2 midnights. I reasonably expect this patient to be discharged or transferred within 96 hours after admission to the critical access hospital. Disposition: home with Family Primary care provider: Aly Dawson NP, [facility] Hospitalist: Dr. Cooley - Mortality Measure Prognosis:: Good - Mortality Measure Prognosis:: Good
[2020-09-06] MEDS ORDERED: Glucagon,Human Recombinant 1 MG Vial IM PRN (20:10)
[2020-09-06] MEDS ORDERED: Albuterol/Ipratropium 3.0-0.5 MG/3 ML Neb Soln NEB PRN (20:10)
[2020-09-06] MEDS ORDERED: Docusate Sodium 100 MG Cap PO PRN (20:10)
[2020-09-06] MEDS ORDERED: Acetaminophen 325 MG Tab PO PRN (20:10)
[2020-09-06] MEDS ORDERED: Levofloxacin/Dextrose 5%-Water 750 MG in Premix Bag 1 BAG IV ONE (20:10)
[2020-09-06] MEDS ORDERED: Albuterol 0.083% 2.5 MG/3 ML Neb Soln NEB PRN (20:10)
[2020-09-06] MEDS ORDERED: Nitroglycerin 0.4 MG Tab.SL SL PRN (20:10)
[2020-09-06] MEDS ORDERED: 50% Dextrose in Water 50 ML Syringe IVPUSH PRN (20:10)
[2020-09-06] MEDS ORDERED: Bisacodyl 5 MG Tab PO PRN (20:10)
[2020-09-06] MEDS ORDERED: Morphine 2 MG/ML SYRINGE IVPUSH PRN (20:10)
[2020-09-06] MEDS ORDERED: Ondansetron 4 MG Tab.DIS PO PRN (20:10)
[2020-09-06] MEDS ORDERED: cefTRIAXone 1 GM in Sodium Chloride 0.9% 50 ML IV ONE (20:10)
[2020-09-06] MEDS: Carvedilol 3.125 MG Tab PO SCH (20:55)
[2020-09-06] MEDS: atorvaSTATin 20 MG Tab PO SCH (20:55)
[2020-09-06] MEDS: Insulin Glargine,Human Rec. Analog 100 Units/ML 3 ML Pen SUBCUT SCH (20:55)
[2020-09-06] MEDS: Apixaban 5 MG Tab PO SCH (20:55)
[2020-09-06] MEDS: Insulin Lispro 100 Unit/ML 3 ML KwikPen SUBCUT SCH (20:56)
[2020-09-06] MEDS: Magnesium Oxide 400 MG Tab PO SCH (21:04)
--- NOTE | 2020-09-06 21:27 | CRLCT ---
INDICATION: Weakness. TECHNIQUE: Noncontrast CT of the chest abdomen and pelvis. COMPARISON: Contrast-enhanced chest CT August 22, 2020. FINDINGS: CT chest: Left shoulder arthroplasty. Stimulation lead wires are identified within the thoracic spine. Dense arterial vascular calcification within the coronary artery distribution. Calcified granuloma right middle lobe with calcified right hilar/mediastinal lymph nodes. Mild cardiomegaly without overt failure. Respiratory motion artifact degrades image quality. Minor dependent bibasilar atelectasis. Minor pleural thickening in each lung base. No thoracic lymphadenopathy. CT of the abdomen and pelvis: The unenhanced liver is negative for masses or biliary dilatation. Calcified splenic granulomas. No splenomegaly. The pancreas and adrenal glands are within normal limits. Surgically absent gallbladder. Small low-attenuation lesion anterior right mid kidney likely a cyst measuring 1.9 x 2.6 cm. Mild perinephric fat stranding nonspecific. Dense vascular calcification within the abdominal aorta, iliac arteries, and branch vessels. There is no evidence for small or large bowel obstruction or ileus. Normal appendix. Multiple sigmoid diverticula. No evidence for active diverticulitis. Mildly distended urinary bladder. Surgically absent prostate gland and seminal vesicles. Surgical clips in the hemipelvis likely from lymph node dissection. Stimulation pack projected within the soft tissues of the right buttock. Two level fusion posteriorly at L4 and L5. Spurring of the lower thoracic/lumbar spine. IMPRESSION: 1. No acute cardiopulmonary process identified. 2. Coronary artery calcification compatible with coronary arterial disease. 3. No acute abdominopelvic process identified. 4. Left susanna colonic diverticulosis without diverticulitis. 5. Postsurgical change from cholecystectomy and prostatectomy. Please note that all CT scans at this facility use dose modulation, iterative reconstruction, and/or weight-based dosing when appropriate to reduce radiation dose to as low as reasonably achievable. Dictated by Braydon Sidhu MD @ Sep 06 2020 9:17PM Signed by Dr. Braydon Sidhu @ Sep 06 2020 9:25PM
[2020-09-07] MEDS ORDERED: Pantoprazole 40 MG Vial IV SCH (09:00)
[2020-09-07] MEDS: Carvedilol 3.125 MG Tab PO SCH ×2 (09:03→20:37)
[2020-09-07] MEDS: Losartan 50 MG Tab PO SCH (09:05)
[2020-09-07] MEDS: Apixaban 5 MG Tab PO SCH ×2 (09:07→20:37)
[2020-09-07] MEDS: Clopidogrel 75 MG Tab PO SCH (09:08)
[2020-09-07] MEDS: Magnesium Oxide 400 MG Tab PO SCH ×2 (09:09→20:40)
[2020-09-07] MEDS: Folic Acid 1 MG Tab PO SCH (09:09)
[2020-09-07] MEDS: Furosemide 40 MG Tab PO SCH (09:10)
[2020-09-07] MEDS: Allopurinol 100 MG Tab PO SCH (09:13)
[2020-09-07] MEDS: Pantoprazole 40 MG Tab.CR PO SCH (09:17)
[2020-09-07] MEDS: Insulin Lispro 100 Unit/ML 3 ML KwikPen SUBCUT SCH ×4 (09:51→21:35)
[2020-09-07] MEDS ORDERED: Pneumococcal Polyvalent-23 Vaccine 0.5 ML SDV IM ONE (10:00)
--- NOTE | 2020-09-07 12:51 | PCM.PN ---
- General Info Date of Service: 09/07/20 Subjective Update: There were no acute issues overnight though the patient has been confused and somewhat dizzy. He seems to be a little bit more clear today and his thinks that he is doing better. He was able to get to the bathroom using a walker. He is not clear on recent events but is able to remember most of what happened over the last week or so. He is complaining of a headache but does not have any chest pain or abdominal pain. He does not feel short of breath. He is off oxygen this morning. Kidney function is slightly better today. No fevers. Functional Status: Reports: Pain Controlled, Tolerating Diet - Review of Systems General: Reports: Weakness. Denies: Fever Psychiatric: Reports: Confusion - Patient Data Vitals - Most Recent: Last Vital Signs Temp 36.2 C 09/07/20 11:00 Pulse 65 09/07/20 11:00 Resp 19 09/07/20 11:00 BP 118/46 L 09/07/20 11:00 Pulse Ox 91 L 09/07/20 11:00 Weight - Most Recent: 124.738 kg I&O - Last 24 Hours: Intake & Output 09/06/20 09/07/20 09/07/20 22:59 06:59 14:59 Output Total 150 300 100 Balance -150 -300 -100 Lab Results Last 24 Hours: Laboratory Results - last 24 hr 09/06/20 09/06/20 09/06/20 Range/Units 16:20 16:20 16:20 WBC 8.5 (4.5-11.0) K/uL RBC 3.79 L (4.30-5.90) M/uL Hgb 11.9 L (12.0-15.0) g/dL Hct 38.5 L (40.0-54.0) % MCV 102 H (80-98) fL MCH 31 (27-31) pg MCHC 31 L (32-36) % Plt Count 269 (150-400) K/uL Neut % (Auto) (36-66) % Lymph % (Auto) (24-44) % [place] % (Auto) (2-6) % Eos % (Auto) (2-4) % Baso % (Auto) (0-1) % PT (9.5-12.0) sec INR (0.80-1.20) D-Dimer, Quantitative (0.0-500.0) ng/mL Puncture Site ABG pH (7.350-7.450) ABG pCO2 (35.0-42.0) mmHg ABG pO2 (75.0-100.0) mmHg ABG HCO3 (22.0-26.0) mmol/L ABG Total CO2 (23.0-27.0) mmol/L ABG O2 Saturation (95.0-98.0) % ABG O2 Content (15.0-23.0) %vol ABG Base Excess mm/L ABG Hemoglobin (13.5-18.0) g/dL ABG Oxyhemoglobin % ABG Carboxyhemoglobin (0.0-1.6) % ABG Methemoglobin % [place] Test O2 Delivery Device Sodium 138 L (140-148) mmol/L Potassium 5.1 (3.6-5.2) mmol/L Chloride 102 (100-108) mmol/L Carbon Dioxide 27 (21-32) mmol/L Anion Gap 14.1 H (5.0-14.0) mmol/L BUN 17 (7-18) mg/dL Creatinine 1.6 H (0.8-1.3) mg/dL Est Cr Clr Drug Dosing 40.74 mL/min Estimated GFR (MDRD) 43 L (>60) Glucose 150 H (74-106) mg/dL POC Glucose (74-106) MG/DL Calcium 9.2 (8.5-10.1) mg/dL Magnesium 1.7 L (1.8-2.4) mg/dL Total Bilirubin (0.2-1.0) mg/dL Direct Bilirubin (0.0-0.2) mg/dL AST (15-37) U/L ALT (12-78) U/L Alkaline Phosphatase (46-116) U/L Ammonia (11-32) mmol/L Troponin I < 0.017 (0.000-0.056) ng/mL C-Reactive Protein (0.0-0.3) mg/dL NT-Pro-B Natriuret Pep (5-125) pg/mL Total Protein (6.4-8.2) g/dL Albumin (3.4-5.0) g/dL Globulin (2.3-3.5) g/dL Albumin/Globulin Ratio (1.2-2.2) Amylase (25-115) U/L Lipase (73-393) U/L Free T4 (0.76-1.46) ng/dL TSH, Ultra Sensitive (0.358-3.740) uIU/mL Urine Color (YELLOW) Urine Appearance (CLEAR) Urine pH (5.0-8.0) Ur Specific [place] (1.008-1.030) Urine Protein (NEGATIVE) mg/dL Urine Glucose (UA) (NEGATIVE) mg/dL Urine Ketones (NEGATIVE) mg/dL Urine Occult Blood (NEGATIVE) Urine Nitrite (NEGATIVE) Urine Bilirubin (NEGATIVE) Urine Urobilinogen (0.2-1.0) EU/dL Ur Leukocyte Esterase (NEGATIVE) Urine RBC (0-5) Urine WBC (0-5) Ur Epithelial Cells Amorphous Sediment Urine Bacteria Urine Mucus Ethyl Alcohol mg/dL SARS-CoV-2 RNA (LEONEL) (NEGATIVE) SARS CoV-2 RNA Rapid LEONEL 09/06/20 09/06/20 09/06/20 Range/Units 16:20 16:20 16:21 WBC (4.5-11.0) K/uL RBC (4.30-5.90) M/uL Hgb (12.0-15.0) g/dL Hct (40.0-54.0) % MCV (80-98) fL MCH (27-31) pg MCHC (32-36) % Plt Count (150-400) K/uL Neut % (Auto) (36-66) % Lymph % (Auto) (24-44) % [place] % (Auto) (2-6) % Eos % (Auto) (2-4) % Baso % (Auto) (0-1) % PT (9.5-12.0) sec INR (0.80-1.20) D-Dimer, Quantitative 1217.89 H (0.0-500.0) ng/mL Puncture Site ABG pH (7.350-7.450) ABG pCO2 (35.0-42.0) mmHg ABG pO2 (75.0-100.0) mmHg ABG HCO3 (22.0-26.0) mmol/L ABG Total CO2 (23.0-27.0) mmol/L ABG O2 Saturation (95.0-98.0) % ABG O2 Content (15.0-23.0) %vol ABG Base Excess mm/L ABG Hemoglobin (13.5-18.0) g/dL ABG Oxyhemoglobin % ABG Carboxyhemoglobin (0.0-1.6) % ABG Methemoglobin % [place] Test O2 Delivery Device Sodium (140-148) mmol/L Potassium (3.6-5.2) mmol/L Chloride (100-108) mmol/L Carbon Dioxide (21-32) mmol/L Anion Gap (5.0-14.0) mmol/L BUN (7-18) mg/dL Creatinine (0.8-1.3) mg/dL Est Cr Clr Drug Dosing mL/min Estimated GFR (MDRD) (>60) Glucose (74-106) mg/dL POC Glucose (74-106) MG/DL Calcium (8.5-10.1) mg/dL Magnesium (1.8-2.4) mg/dL Total Bilirubin (0.2-1.0) mg/dL Direct Bilirubin (0.0-0.2) mg/dL AST (15-37) U/L ALT (12-78) U/L Alkaline Phosphatase (46-116) U/L Ammonia 26 (11-32) mmol/L Troponin I (0.000-0.056) ng/mL C-Reactive Protein (0.0-0.3) mg/dL NT-Pro-B Natriuret Pep (5-125) pg/mL Total Protein (6.4-8.2) g/dL Albumin (3.4-5.0) g/dL Globulin (2.3-3.5) g/dL Albumin/Globulin Ratio (1.2-2.2) Amylase (25-115) U/L Lipase (73-393) U/L Free T4 (0.76-1.46) ng/dL TSH, Ultra Sensitive 8.063 H (0.358-3.740) uIU/mL Urine Color (YELLOW) Urine Appearance (CLEAR) Urine pH (5.0-8.0) Ur Specific [place] (1.008-1.030) Urine Protein (NEGATIVE) mg/dL Urine Glucose (UA) (NEGATIVE) mg/dL Urine Ketones (NEGATIVE) mg/dL Urine Occult Blood (NEGATIVE) Urine Nitrite (NEGATIVE) Urine Bilirubin (NEGATIVE) Urine Urobilinogen (0.2-1.0) EU/dL Ur Leukocyte Esterase (NEGATIVE) Urine RBC (0-5) Urine WBC (0-5) Ur Epithelial Cells Amorphous Sediment Urine Bacteria Urine Mucus Ethyl Alcohol mg/dL SARS-CoV-2 RNA (LEONEL) (NEGATIVE) SARS CoV-2 RNA Rapid LEONEL 09/06/20 09/06/20 09/06/20 Range/Units 16:21 16:39 17:40 WBC (4.5-11.0) K/uL RBC (4.30-5.90) M/uL Hgb (12.0-15.0) g/dL Hct (40.0-54.0) % MCV (80-98) fL MCH (27-31) pg MCHC (32-36) % Plt Count (150-400) K/uL Neut % (Auto) (36-66) % Lymph % (Auto) (24-44) % [place] % (Auto) (2-6) % Eos % (Auto) (2-4) % Baso % (Auto) (0-1) % PT 11.3 (9.5-12.0) sec INR 1.04 (0.80-1.20) D-Dimer, Quantitative (0.0-500.0) ng/mL Puncture Site Rt radial ABG pH 7.317 L (7.350-7.450) ABG pCO2 52.3 H (35.0-42.0) mmHg ABG pO2 49.1 L (75.0-100.0) mmHg ABG HCO3 26.0 (22.0-26.0) mmol/L ABG Total CO2 24.1 (23.0-27.0) mmol/L ABG O2 Saturation 82.2 L (95.0-98.0) % ABG O2 Content 13.4 L (15.0-23.0) %vol ABG Base Excess -0.2 mm/L ABG Hemoglobin 11.9 L (13.5-18.0) g/dL ABG Oxyhemoglobin 80.3 % ABG Carboxyhemoglobin 1.7 H (0.0-1.6) % ABG Methemoglobin 0.6 % [place] Test Pass O2 Delivery Device Room air Sodium (140-148) mmol/L Potassium (3.6-5.2) mmol/L Chloride (100-108) mmol/L Carbon Dioxide (21-32) mmol/L Anion Gap (5.0-14.0) mmol/L BUN (7-18) mg/dL Creatinine (0.8-1.3) mg/dL Est Cr Clr Drug Dosing mL/min Estimated GFR (MDRD) (>60) Glucose (74-106) mg/dL POC Glucose (74-106) MG/DL Calcium (8.5-10.1) mg/dL Magnesium (1.8-2.4) mg/dL Total Bilirubin (0.2-1.0) mg/dL Direct Bilirubin (0.0-0.2) mg/dL AST (15-37) U/L ALT (12-78) U/L Alkaline Phosphatase (46-116) U/L Ammonia (11-32) mmol/L Troponin I (0.000-0.056) ng/mL C-Reactive Protein (0.0-0.3) mg/dL NT-Pro-B Natriuret Pep (5-125) pg/mL Total Protein (6.4-8.2) g/dL Albumin (3.4-5.0) g/dL Globulin (2.3-3.5) g/dL Albumin/Globulin Ratio (1.2-2.2) Amylase (25-115) U/L Lipase (73-393) U/L Free T4 (0.76-1.46) ng/dL TSH, Ultra Sensitive (0.358-3.740) uIU/mL Urine Color (YELLOW) Urine Appearance (CLEAR) Urine pH (5.0-8.0) Ur Specific [place] (1.008-1.030) Urine Protein (NEGATIVE) mg/dL Urine Glucose (UA) (NEGATIVE) mg/dL Urine Ketones (NEGATIVE) mg/dL Urine Occult Blood (NEGATIVE) Urine Nitrite (NEGATIVE) Urine Bilirubin (NEGATIVE) Urine Urobilinogen (0.2-1.0) EU/dL Ur Leukocyte Esterase (NEGATIVE) Urine RBC (0-5) Urine WBC (0-5) Ur Epithelial Cells Amorphous Sediment Urine Bacteria Urine Mucus Ethyl Alcohol < 3 mg/dL SARS-CoV-2 RNA (LEONEL) (NEGATIVE) SARS CoV-2 RNA Rapid LEONEL 12/03/20 12/03/20 12/03/20 Range/Units 17:40 17:40 17:40 WBC (4.5-11.0) K/uL RBC (4.30-5.90) M/uL Hgb (12.0-15.0) g/dL Hct (40.0-54.0) % MCV (80-98) fL MCH (27-31) pg MCHC (32-36) % Plt Count (150-400) K/uL Neut % (Auto) (36-66) % Lymph % (Auto) (24-44) % [place] % (Auto) (2-6) % Eos % (Auto) (2-4) % Baso % (Auto) (0-1) % PT (9.5-12.0) sec INR (0.80-1.20) D-Dimer, Quantitative (0.0-500.0) ng/mL Puncture Site ABG pH (7.350-7.450) ABG pCO2 (35.0-42.0) mmHg ABG pO2 (75.0-100.0) mmHg ABG HCO3 (22.0-26.0) mmol/L ABG Total CO2 (23.0-27.0) mmol/L ABG O2 Saturation (95.0-98.0) % ABG O2 Content (15.0-23.0) %vol ABG Base Excess mm/L ABG Hemoglobin (13.5-18.0) g/dL ABG Oxyhemoglobin % ABG Carboxyhemoglobin (0.0-1.6) % ABG Methemoglobin % [place] Test O2 Delivery Device Sodium 137 L (140-148) mmol/L Potassium 5.1 (3.6-5.2) mmol/L Chloride 103 (100-108) mmol/L Carbon Dioxide 26 (21-32) mmol/L Anion Gap 13.1 (5.0-14.0) mmol/L BUN 17 (7-18) mg/dL Creatinine 1.5 H (0.8-1.3) mg/dL Est Cr Clr Drug Dosing 43.45 mL/min Estimated GFR (MDRD) 46 L (>60) Glucose 158 H (74-106) mg/dL POC Glucose (74-106) MG/DL Calcium 9.4 (8.5-10.1) mg/dL Magnesium (1.8-2.4) mg/dL Total Bilirubin 0.9 (0.2-1.0) mg/dL Direct Bilirubin (0.0-0.2) mg/dL AST 26 (15-37) U/L ALT 37 (12-78) U/L Alkaline Phosphatase 122 H (46-116) U/L Ammonia (11-32) mmol/L Troponin I (0.000-0.056) ng/mL C-Reactive Protein (0.0-0.3) mg/dL NT-Pro-B Natriuret Pep 501 H (5-125) pg/mL Total Protein 6.8 (6.4-8.2) g/dL Albumin 2.9 L (3.4-5.0) g/dL Globulin 3.9 H (2.3-3.5) g/dL Albumin/Globulin Ratio 0.7 L (1.2-2.2) Amylase 33 (25-115) U/L Lipase 122 (73-393) U/L Free T4 (0.76-1.46) ng/dL TSH, Ultra Sensitive (0.358-3.740) uIU/mL Urine Color (YELLOW) Urine Appearance (CLEAR) Urine pH (5.0-8.0) Ur Specific [place] (1.008-1.030) Urine Protein (NEGATIVE) mg/dL Urine Glucose (UA) (NEGATIVE) mg/dL Urine Ketones (NEGATIVE) mg/dL Urine Occult Blood (NEGATIVE) Urine Nitrite (NEGATIVE) Urine Bilirubin (NEGATIVE) Urine Urobilinogen (0.2-1.0) EU/dL Ur Leukocyte Esterase (NEGATIVE) Urine RBC (0-5) Urine WBC (0-5) Ur Epithelial Cells Amorphous Sediment Urine Bacteria Urine Mucus Ethyl Alcohol mg/dL SARS-CoV-2 RNA (LEONEL) (NEGATIVE) SARS CoV-2 RNA Rapid LEONEL 09/06/20 09/06/20 09/06/20 Range/Units 17:40 17:40 17:59 WBC (4.5-11.0) K/uL RBC (4.30-5.90) M/uL Hgb (12.0-15.0) g/dL Hct (40.0-54.0) % MCV (80-98) fL MCH (27-31) pg MCHC (32-36) % Plt Count (150-400) K/uL Neut % (Auto) (36-66) % Lymph % (Auto) (24-44) % [place] % (Auto) (2-6) % Eos % (Auto) (2-4) % Baso % (Auto) (0-1) % PT (9.5-12.0) sec INR (0.80-1.20) D-Dimer, Quantitative (0.0-500.0) ng/mL Puncture Site ABG pH (7.350-7.450) ABG pCO2 (35.0-42.0) mmHg ABG pO2 (75.0-100.0) mmHg ABG HCO3 (22.0-26.0) mmol/L ABG Total CO2 (23.0-27.0) mmol/L ABG O2 Saturation (95.0-98.0) % ABG O2 Content (15.0-23.0) %vol ABG Base Excess mm/L ABG Hemoglobin (13.5-18.0) g/dL ABG Oxyhemoglobin % ABG Carboxyhemoglobin (0.0-1.6) % ABG Methemoglobin % [place] Test O2 Delivery Device Sodium (140-148) mmol/L Potassium (3.6-5.2) mmol/L Chloride (100-108) mmol/L Carbon Dioxide (21-32) mmol/L Anion Gap (5.0-14.0) mmol/L BUN (7-18) mg/dL Creatinine (0.8-1.3) mg/dL Est Cr Clr Drug Dosing mL/min Estimated GFR (MDRD) (>60) Glucose (74-106) mg/dL POC Glucose (74-106) MG/DL Calcium (8.5-10.1) mg/dL Magnesium (1.8-2.4) mg/dL Total Bilirubin (0.2-1.0) mg/dL Direct Bilirubin 0.21 H (0.0-0.2) mg/dL AST (15-37) U/L ALT (12-78) U/L Alkaline Phosphatase (46-116) U/L Ammonia (11-32) mmol/L Troponin I (0.000-0.056) ng/mL C-Reactive Protein 2.40 H (0.0-0.3) mg/dL NT-Pro-B Natriuret Pep (5-125) pg/mL Total Protein (6.4-8.2) g/dL Albumin (3.4-5.0) g/dL Globulin (2.3-3.5) g/dL Albumin/Globulin Ratio (1.2-2.2) Amylase (25-115) U/L Lipase (73-393) U/L Free T4 (0.76-1.46) ng/dL TSH, Ultra Sensitive (0.358-3.740) uIU/mL Urine Color (YELLOW) Urine Appearance (CLEAR) Urine pH (5.0-8.0) Ur Specific [place] (1.008-1.030) Urine Protein (NEGATIVE) mg/dL Urine Glucose (UA) (NEGATIVE) mg/dL Urine Ketones (NEGATIVE) mg/dL Urine Occult Blood (NEGATIVE) Urine Nitrite (NEGATIVE) Urine Bilirubin (NEGATIVE) Urine Urobilinogen (0.2-1.0) EU/dL Ur Leukocyte Esterase (NEGATIVE) Urine RBC (0-5) Urine WBC (0-5) Ur Epithelial Cells Amorphous Sediment Urine Bacteria Urine Mucus Ethyl Alcohol mg/dL SARS-CoV-2 RNA (LEONEL) (NEGATIVE) SARS CoV-2 RNA Rapid LEONEL Negative 09/06/20 09/06/20 09/06/20 Range/Units 18:37 19:05 21:00 WBC (4.5-11.0) K/uL RBC (4.30-5.90) M/uL Hgb (12.0-15.0) g/dL Hct (40.0-54.0) % MCV (80-98) fL MCH (27-31) pg MCHC (32-36) % Plt Count (150-400) K/uL Neut % (Auto) (36-66) % Lymph % (Auto) (24-44) % [place] % (Auto) (2-6) % Eos % (Auto) (2-4) % Baso % (Auto) (0-1) % PT (9.5-12.0) sec INR (0.80-1.20) D-Dimer, Quantitative (0.0-500.0) ng/mL Puncture Site ABG pH (7.350-7.450) ABG pCO2 (35.0-42.0) mmHg ABG pO2 (75.0-100.0) mmHg ABG HCO3 (22.0-26.0) mmol/L ABG Total CO2 (23.0-27.0) mmol/L ABG O2 Saturation (95.0-98.0) % ABG O2 Content (15.0-23.0) %vol ABG Base Excess mm/L ABG Hemoglobin (13.5-18.0) g/dL ABG Oxyhemoglobin % ABG Carboxyhemoglobin (0.0-1.6) % ABG Methemoglobin % [place] Test O2 Delivery Device Sodium (140-148) mmol/L Potassium (3.6-5.2) mmol/L Chloride (100-108) mmol/L Carbon Dioxide (21-32) mmol/L Anion Gap (5.0-14.0) mmol/L BUN (7-18) mg/dL Creatinine (0.8-1.3) mg/dL Est Cr Clr Drug Dosing mL/min Estimated GFR (MDRD) (>60) Glucose (74-106) mg/dL POC Glucose 109 H (74-106) MG/DL Calcium (8.5-10.1) mg/dL Magnesium (1.8-2.4) mg/dL Total Bilirubin (0.2-1.0) mg/dL Direct Bilirubin (0.0-0.2) mg/dL AST (15-37) U/L ALT (12-78) U/L Alkaline Phosphatase (46-116) U/L Ammonia (11-32) mmol/L Troponin I (0.000-0.056) ng/mL C-Reactive Protein (0.0-0.3) mg/dL NT-Pro-B Natriuret Pep (5-125) pg/mL Total Protein (6.4-8.2) g/dL Albumin (3.4-5.0) g/dL Globulin (2.3-3.5) g/dL Albumin/Globulin Ratio (1.2-2.2) Amylase (25-115) U/L Lipase (73-393) U/L Free T4 (0.76-1.46) ng/dL TSH, Ultra Sensitive (0.358-3.740) uIU/mL Urine Color Yellow (YELLOW) Urine Appearance Clear (CLEAR) Urine pH 5.0 (5.0-8.0) Ur Specific [place] 1.020 (1.008-1.030) Urine Protein Negative (NEGATIVE) mg/dL Urine Glucose (UA) Negative (NEGATIVE) mg/dL Urine Ketones Negative (NEGATIVE) mg/dL Urine Occult Blood Negative (NEGATIVE) Urine Nitrite Negative (NEGATIVE) Urine Bilirubin Negative (NEGATIVE) Urine Urobilinogen 0.2 (0.2-1.0) EU/dL Ur Leukocyte Esterase Negative (NEGATIVE) Urine RBC 0-5 (0-5) Urine WBC 0-5 (0-5) Ur Epithelial Cells Rare Amorphous Sediment Not seen Urine Bacteria Not seen Urine Mucus Not seen Ethyl Alcohol mg/dL SARS-CoV-2 RNA (LEONEL) Negative (NEGATIVE) SARS CoV-2 RNA Rapid LEONEL 09/07/20 09/07/20 09/07/20 Range/Units 04:29 04:29 08:46 WBC 8.0 (4.5-11.0) K/uL RBC 3.60 L (4.30-5.90) M/uL Hgb 11.5 L (12.0-15.0) g/dL Hct 36.7 L (40.0-54.0) % MCV 102 H (80-98) fL MCH 32 H (27-31) pg MCHC 31 L (32-36) % Plt Count 242 (150-400) K/uL Neut % (Auto) 69 H (36-66) % Lymph % (Auto) 19 L (24-44) % [place] % (Auto) 9 H (2-6) % Eos % (Auto) 2 (2-4) % Baso % (Auto) 1 (0-1) % PT (9.5-12.0) sec INR (0.80-1.20) D-Dimer, Quantitative (0.0-500.0) ng/mL Puncture Site ABG pH (7.350-7.450) ABG pCO2 (35.0-42.0) mmHg ABG pO2 (75.0-100.0) mmHg ABG HCO3 (22.0-26.0) mmol/L ABG Total CO2 (23.0-27.0) mmol/L ABG O2 Saturation (95.0-98.0) % ABG O2 Content (15.0-23.0) %vol ABG Base Excess mm/L ABG Hemoglobin (13.5-18.0) g/dL ABG Oxyhemoglobin % ABG Carboxyhemoglobin (0.0-1.6) % ABG Methemoglobin % [place] Test O2 Delivery Device Sodium 138 L (140-148) mmol/L Potassium 5.3 H (3.6-5.2) mmol/L Chloride 103 (100-108) mmol/L Carbon Dioxide 28 (21-32) mmol/L Anion Gap 12.3 (5.0-14.0) mmol/L BUN 17 (7-18) mg/dL Creatinine 1.4 H (0.8-1.3) mg/dL Est Cr Clr Drug Dosing 46.56 mL/min Estimated GFR (MDRD) 50 L (>60) Glucose 146 H (74-106) mg/dL POC Glucose (74-106) MG/DL Calcium 8.8 (8.5-10.1) mg/dL Magnesium (1.8-2.4) mg/dL Total Bilirubin (0.2-1.0) mg/dL Direct Bilirubin (0.0-0.2) mg/dL AST (15-37) U/L ALT (12-78) U/L Alkaline Phosphatase (46-116) U/L Ammonia (11-32) mmol/L Troponin I (0.000-0.056) ng/mL C-Reactive Protein (0.0-0.3) mg/dL NT-Pro-B Natriuret Pep (5-125) pg/mL Total Protein (6.4-8.2) g/dL Albumin (3.4-5.0) g/dL Globulin (2.3-3.5) g/dL Albumin/Globulin Ratio (1.2-2.2) Amylase (25-115) U/L Lipase (73-393) U/L Free T4 0.95 (0.76-1.46) ng/dL TSH, Ultra Sensitive (0.358-3.740) uIU/mL Urine Color (YELLOW) Urine Appearance (CLEAR) Urine pH (5.0-8.0) Ur Specific [place] (1.008-1.030) Urine Protein (NEGATIVE) mg/dL Urine Glucose (UA) (NEGATIVE) mg/dL Urine Ketones (NEGATIVE) mg/dL Urine Occult Blood (NEGATIVE) Urine Nitrite (NEGATIVE) Urine Bilirubin (NEGATIVE) Urine Urobilinogen (0.2-1.0) EU/dL Ur Leukocyte Esterase (NEGATIVE) Urine RBC (0-5) Urine WBC (0-5) Ur Epithelial Cells Amorphous Sediment Urine Bacteria Urine Mucus Ethyl Alcohol mg/dL SARS-CoV-2 RNA (LEONEL) (NEGATIVE) SARS CoV-2 RNA Rapid LEONEL 09/07/20 Range/Units 11:30 WBC (4.5-11.0) K/uL RBC (4.30-5.90) M/uL Hgb (12.0-15.0) g/dL Hct (40.0-54.0) % MCV (80-98) fL MCH (27-31) pg MCHC (32-36) % Plt Count (150-400) K/uL Neut % (Auto) (36-66) % Lymph % (Auto) (24-44) % [place] % (Auto) (2-6) % Eos % (Auto) (2-4) % Baso % (Auto) (0-1) % PT (9.5-12.0) sec INR (0.80-1.20) D-Dimer, Quantitative (0.0-500.0) ng/mL Puncture Site ABG pH (7.350-7.450) ABG pCO2 (35.0-42.0) mmHg ABG pO2 (75.0-100.0) mmHg ABG HCO3 (22.0-26.0) mmol/L ABG Total CO2 (23.0-27.0) mmol/L ABG O2 Saturation (95.0-98.0) % ABG O2 Content (15.0-23.0) %vol ABG Base Excess mm/L ABG Hemoglobin (13.5-18.0) g/dL ABG Oxyhemoglobin % ABG Carboxyhemoglobin (0.0-1.6) % ABG Methemoglobin % [place] Test O2 Delivery Device Sodium (140-148) mmol/L Potassium (3.6-5.2) mmol/L Chloride (100-108) mmol/L Carbon Dioxide (21-32) mmol/L Anion Gap (5.0-14.0) mmol/L BUN (7-18) mg/dL Creatinine (0.8-1.3) mg/dL Est Cr Clr Drug Dosing mL/min Estimated GFR (MDRD) (>60) Glucose (74-106) mg/dL POC Glucose 134 H (74-106) MG/DL Calcium (8.5-10.1) mg/dL Magnesium (1.8-2.4) mg/dL Total Bilirubin (0.2-1.0) mg/dL Direct Bilirubin (0.0-0.2) mg/dL AST (15-37) U/L ALT (12-78) U/L Alkaline Phosphatase (46-116) U/L Ammonia (11-32) mmol/L Troponin I (0.000-0.056) ng/mL C-Reactive Protein (0.0-0.3) mg/dL NT-Pro-B Natriuret Pep (5-125) pg/mL Total Protein (6.4-8.2) g/dL Albumin (3.4-5.0) g/dL Globulin (2.3-3.5) g/dL Albumin/Globulin Ratio (1.2-2.2) Amylase (25-115) U/L Lipase (73-393) U/L Free T4 (0.76-1.46) ng/dL TSH, Ultra Sensitive (0.358-3.740) uIU/mL Urine Color (YELLOW) Urine Appearance (CLEAR) Urine pH (5.0-8.0) Ur Specific [place] (1.008-1.030) Urine Protein (NEGATIVE) mg/dL Urine Glucose (UA) (NEGATIVE) mg/dL Urine Ketones (NEGATIVE) mg/dL Urine Occult Blood (NEGATIVE) Urine Nitrite (NEGATIVE) Urine Bilirubin (NEGATIVE) Urine Urobilinogen (0.2-1.0) EU/dL Ur Leukocyte Esterase (NEGATIVE) Urine RBC (0-5) Urine WBC (0-5) Ur Epithelial Cells Amorphous Sediment Urine Bacteria Urine Mucus Ethyl Alcohol mg/dL SARS-CoV-2 RNA (LEONEL) (NEGATIVE) SARS CoV-2 RNA Rapid [facility] Med Orders - Current: Current Medications Acetaminophen (Tylenol) 650 mg PO Q4H PRN PRN Reason: Pain (Mild 1-3)/fever Hydrocodone Bitart/Acetaminophen ([place] 325-5 Mg) 1 tab PO Q4H PRN PRN Reason: Pain (moderate 4-6) Albuterol (Proventil Neb Soln) 2.5 mg NEB Q4H PRN PRN Reason: Shortness Of Breath/wheezing Allopurinol (Zyloprim) 150 mg PO DAILY [facility] Last Admin: 09/07/20 09:13 Dose: 150 mg Documented by: Apixaban (Eliquis) 5 mg PO BID [facility] Last Admin: 09/07/20 09:07 Dose: 5 mg Documented by: Atorvastatin Calcium (Lipitor) 80 mg PO BEDTIME [facility] Last Admin: 09/06/20 20:55 Dose: 80 mg Documented by: Bisacodyl (Dulcolax) 5 mg PO DAILY PRN PRN Reason: Constipation Carvedilol (Coreg) 6.25 mg PO BID [facility] Last Admin: 09/07/20 09:03 Dose: 6.25 mg Documented by: Clopidogrel Bisulfate (Plavix) 75 mg PO DAILY [facility] Last Admin: 09/07/20 09:08 Dose: 75 mg Documented by: Dextrose/Water (Dextrose 50% In Water) 50 ml IVPUSH ASDIRECTED PRN PRN Reason: Hypoglycemia Docusate Sodium (Colace) 100 mg PO BID PRN PRN Reason: Constipation Folic Acid (Folic Acid) 1 mg PO DAILY [facility] Last Admin: 09/07/20 09:09 Dose: 1 mg Documented by: Furosemide (Lasix) 40 mg PO DAILY [facility] Last Admin: 09/07/20 09:10 Dose: 40 mg Documented by: Glucagon (Glucagen) 1 mg IM ASDIRECTED PRN PRN Reason: Hypoglycemia Sodium Chloride (Normal Saline) 1,000 mls @ 75 mls/hr IV ASDIRECTED [facility] Ceftriaxone Sodium 1 gm/ (Sodium Chloride) 50 mls @ 100 mls/hr IV Q24H [facility] Influenza Virus Vaccine (Fluzone High-Dose Quad ) 240 mcg IM .ONCE ONE Stop: 09/07/20 21:01 Insulin Glargine (Lantus Solostar) 12 units SUBCUT BEDTIME [facility] Last Admin: 09/06/20 20:55 Dose: 12 units Documented by: Insulin Human Lispro (Humalog) 0 unit SUBCUT QIDACANDBED [facility]; Protocol Last Admin: 09/07/20 12:34 Dose: Not Given Documented by: Losartan Potassium (Cozaar) 100 mg PO DAILY [facility] Last Admin: 09/07/20 09:05 Dose: 100 mg Documented by: Magnesium Oxide (Magnesium Oxide) 400 mg PO BID [facility] Last Admin: 09/07/20 09:09 Dose: 400 mg Documented by: Morphine Sulfate (Morphine) 2 mg IVPUSH Q2H PRN PRN Reason: Pain (severe 7-10) Nitroglycerin (Nitrostat) 0.4 mg SL ASDIRECTED PRN PRN Reason: CHEST PAIN Ondansetron HCl (Zofran Odt) 4 mg PO Q6H PRN PRN Reason: Nausea able to take PO Pantoprazole Sodium (Protonix) 40 mg PO ACBREAKFAST [facility] Last Admin: 09/07/20 09:17 Dose: 40 mg Documented by: Sodium Chloride (Saline Flush) 10 ml FLUSH ASDIRECTED PRN PRN Reason: Keep Vein Open Last Admin: 09/06/20 16:45 Dose: 10 ml Documented by: Discontinued Medications Albuterol/Ipratropium (Duoneb 3.0-0.5 Mg/3 Ml) 3 ml NEB QID PRN PRN Reason: Shortness Of Breath/wheezing Sodium Chloride (Normal Saline) 1,000 mls @ 999 mls/hr IV .BOLUS ONE Stop: 09/06/20 17:54 Last Admin: 09/06/20 17:00 Dose: 999 mls/hr Documented by: Ceftriaxone Sodium 1 gm/ (Sodium Chloride) 50 mls @ 100 mls/hr IV Q24H [facility] Last Admin: 09/06/20 20:26 Dose: Not Given Documented by: Azithromycin 500 mg/ Sodium (Chloride) 250 mls @ 250 mls/hr IV Q24H [facility] Last Admin: 09/06/20 18:41 Dose: 250 mls/hr Documented by: Levofloxacin/Dextrose 750 mg/ (Premix) 150 mls @ 100 mls/hr IV ONETIME ONE Stop: 09/06/20 21:39 Last Admin: 09/06/20 20:51 Dose: 100 mls/hr Documented by: Ceftriaxone Sodium 1 gm/ (Sodium Chloride) 50 mls @ 100 mls/hr IV ONETIME ONE Stop: 09/06/20 20:39 Last Admin: 09/06/20 20:50 Dose: 100 mls/hr Documented by: Influenza Virus Vaccine (Pharmacy To Dose - Influenza Vaccine) 1 each IM ONETIME ONE Stop: 09/07/20 10:01 Pneumococcal Polyvalent Vaccine (Pneumovax 23) 0.5 ml IM .ONCE ONE Stop: 09/07/20 10:01 Last Admin: 09/07/20 10:21 Dose: 0.5 ml Documented by: - Exam Quality Assessment: No: Supplemental Oxygen General: Alert, Cooperative, No Acute Distress. No: Oriented HEENT: Pupils Equal Lungs: Clear to Auscultation, Normal Respiratory Effort Cardiovascular: Regular Rate, Regular Rhythm GI/Abdominal Exam: Normal Bowel Sounds, Soft, No Distention Extremities: No Pedal Edema. No: Increased Warmth Skin: Warm, Dry Neurological: No New Focal Deficit Psy/Mental Status: Alert, Normal Affect Sepsis Event Note - Evaluation Sepsis Screening Result: No Definite Risk - Focused Exam Vital Signs: Vital Signs Temp Pulse Pulse Resp BP BP Pulse Ox 09/07/20 11:00 36.2 C 65 19 118/46 L 91 L 09/07/20 09:05 131/64 09/07/20 09:03 68 131/64 09/07/20 07:53 36.8 C 68 15 131/64 94 L 09/07/20 07:43 95 09/07/20 01:51 37.4 C 80 18 136/60 97 - Problem List Review Problem List Initiated/Reviewed/Updated: Yes - My Orders Last 24 Hours: My Active Orders 09/07/20 11:30 Accu Check [Blood Glucose Check, Bedside] [RC] QIDACANDBED 09/07/20 12:49 Discontinue Telemetry Monitoring [Cardiac Monitoring Discontinue] [RC] Click to Edit Convert IV to Saline Lock [OM.PC] Routine 09/07/20 16:30 GLUCOSE POC LAB TO COLLECT JPM [POC] QIDACANDBED 09/07/20 21:00 GLUCOSE POC LAB TO COLLECT JPM [POC] QIDACANDBED 09/08/20 05:00 BASIC METABOLIC PANEL,BMP [CHEM] Timed BLOOD GAS ARTERIAL [BG] Timed CBC W/O DIFF,HEMOGRAM [HEME] Timed (1) 09/08/20 07:30 GLUCOSE POC LAB TO COLLECT JPM [POC] QIDACANDBED 09/08/20 11:30 GLUCOSE POC LAB TO COLLECT JPM [POC] QIDACANDBED 09/08/20 16:30 GLUCOSE POC LAB TO COLLECT JPM [POC] QIDACANDBED 09/08/20 21:00 GLUCOSE POC LAB TO COLLECT JPM [POC] QIDACANDBED 09/09/20 07:30 GLUCOSE POC LAB TO COLLECT JPM [POC] QIDACANDBED 09/09/20 11:30 GLUCOSE POC LAB TO COLLECT JPM [POC] QIDACANDBED 09/09/20 16:30 GLUCOSE POC LAB TO COLLECT JPM [POC] QIDACANDBED 09/09/20 21:00 GLUCOSE POC LAB TO COLLECT JPM [POC] QIDACANDBED 09/10/20 07:30 GLUCOSE POC LAB TO COLLECT JPM [POC] QIDACANDBED 09/10/20 11:30 GLUCOSE POC LAB TO COLLECT JPM [POC] QIDACANDBED 09/10/20 16:30 GLUCOSE POC LAB TO COLLECT JPM [POC] QIDACANDBED 09/10/20 21:00 GLUCOSE POC LAB TO COLLECT JPM [POC] QIDACANDBED 09/11/20 07:30 GLUCOSE POC LAB TO COLLECT JPM [POC] QIDACANDBED - Plan Plan:: ASSESSMENT AND PLAN - Mixed delirium with acute generalized weakness-initially there was concern for infection though we have not found definitive evidence at this point. Urine was clear and there was no evidence for pneumonia on chest x-ray or CT scan. No abdominal infection identified on CT scan. I am suspicious this may be related to the Librium that was prescribed at the time of hospital discharge. He seems to be clearing so far with fluids though he has received empiric antibiotics with pulmonary infection suspected. Better today but not back to baseline. -Continue empiric antibiotics today, reassess tomorrow -Supplement oxygen if needed -Saline lock IV -Follow-up cultures -Librium has been discontinued Diabetes Type 2 - blood sugar levels have been good. -Insulin long acting Lantus 12 units subcut -Insulin short acting low dose sliding scale coverage -Blood glucose testing before meals and at bedtime History of Covid 19-Mr. Ames test postive on 07/08/2000. No active symptoms. -No indication for isolation Coronary artery disease-recent history of Non-Stemi PR 08/22/2020 with stents x2 on 08/28/2020 at [facility]. 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 -continue outpatient medications Sleep Apnea -Continue outpatient CPAP treatment Alcohol dependence-no evidence for alcohol withdrawal so far. Maintenance issues -Nutrition: consistent carb diet -DVT: Apixaban -GI; PPI Disposition: I anticipate discharge home with family and home care Barron Cooley MD
[2020-09-07] MEDS: Acetaminophen/HYDROcodone 325-5 MG Tab PO PRN (17:08)
[2020-09-07] MEDS: cefTRIAXone 1 GM in Sodium Chloride 0.9% 50 ML IV SCH (20:11)
[2020-09-07] MEDS: atorvaSTATin 20 MG Tab PO SCH (20:40)
[2020-09-07] MEDS ORDERED: FLU Vacc QV2020-21(65YR UP)/PF 240 MCG/0.7 ML Syringe IM ONE (21:00)
[2020-09-07] MEDS: Insulin Glargine,Human Rec. Analog 100 Units/ML 3 ML Pen SUBCUT SCH (21:36)
[2020-09-07] MEDS: Hypromellose 0.3% Ophth Soln 15 ML Bottle EYEBOTH PRN (23:39)
[2020-09-08] MEDS: Acetaminophen/HYDROcodone 325-5 MG Tab PO PRN ×3 (00:41→21:15)
[2020-09-08] MEDS: Melatonin 3 MG Tab PO PRN ×2 (00:41→21:16)
[2020-09-08] MEDS: Allopurinol 100 MG Tab PO SCH (08:23)
[2020-09-08] MEDS: Magnesium Oxide 400 MG Tab PO SCH ×2 (08:26→21:09)
[2020-09-08] MEDS: Pantoprazole 40 MG Tab.CR PO SCH (08:26)
[2020-09-08] MEDS: Losartan 50 MG Tab PO SCH (08:27)
[2020-09-08] MEDS: Carvedilol 3.125 MG Tab PO SCH ×2 (08:28→21:07)
[2020-09-08] MEDS: Clopidogrel 75 MG Tab PO SCH (08:30)
[2020-09-08] MEDS: Apixaban 5 MG Tab PO SCH ×2 (08:30→21:07)
[2020-09-08] MEDS: Furosemide 40 MG Tab PO SCH (08:32)
[2020-09-08] MEDS: Folic Acid 1 MG Tab PO SCH (08:32)
[2020-09-08] MEDS ORDERED: Levofloxacin 500 MG Tab PO SCH (09:00)
[2020-09-08] MEDS: Insulin Lispro 100 Unit/ML 3 ML KwikPen SUBCUT SCH ×4 (11:14→21:07)
--- NOTE | 2020-09-08 12:02 | PCM.PN ---
- General Info Date of Service: 09/08/20 Subjective Update: No acute events overnight but the patient did report some hallucinations. These seem to have resolved today. No fevers. He is more alert and interactive but not quite back to baseline. Strength is better today and he is able to get out of bed on his own and using the walker to get to the bathroom and back. He did require some supplemental oxygen overnight but he is off oxygen this morning. Labs are stable other than his ABGs which show improvement but still elevation of his PCO2. Functional Status: Reports: Pain Controlled - Review of Systems General: Reports: Weakness. Denies: Fever Pulmonary: Denies: Shortness of Breath - Patient Data Vitals - Most Recent: Last Vital Signs Temp 36.6 C 09/08/20 10:00 Pulse 67 09/08/20 10:00 Resp 18 09/08/20 10:00 BP 109/53 L 09/08/20 10:00 Pulse Ox 92 L 09/08/20 10:00 Weight - Most Recent: 124.738 kg I&O - Last 24 Hours: Intake & Output 09/07/20 09/08/20 09/08/20 22:59 06:59 14:59 Intake Total 50 Output Total 400 200 100 Balance -350 -200 -100 Lab Results Last 24 Hours: Laboratory Results - last 24 hr 09/07/20 09/07/20 09/08/20 Range/Units 17:05 21:00 05:00 WBC (4.5-11.0) K/uL RBC (4.30-5.90) M/uL Hgb (12.0-15.0) g/dL Hct (40.0-54.0) % MCV (80-98) fL MCH (27-31) pg MCHC (32-36) % Plt Count (150-400) K/uL Puncture Site ABG pH (7.350-7.450) ABG pCO2 (35.0-42.0) mmHg ABG pO2 (75.0-100.0) mmHg ABG HCO3 (22.0-26.0) mmol/L ABG Total CO2 (23.0-27.0) mmol/L ABG O2 Saturation (95.0-98.0) % ABG O2 Content (15.0-23.0) %vol ABG Base Excess mm/L ABG Hemoglobin (13.5-18.0) g/dL ABG Oxyhemoglobin % ABG Carboxyhemoglobin (0.0-1.6) % ABG Methemoglobin % Frederick Test O2 Delivery Device Oxygen Flow Rate L Sodium 138 L (140-148) mmol/L Potassium 4.7 (3.6-5.2) mmol/L Chloride 104 (100-108) mmol/L Carbon Dioxide 26 (21-32) mmol/L Anion Gap 12.7 (5.0-14.0) mmol/L BUN 17 (7-18) mg/dL Creatinine 1.4 H (0.8-1.3) mg/dL Est Cr Clr Drug Dosing 46.44 mL/min Estimated GFR (MDRD) 50 L (>60) Glucose 136 H (74-106) mg/dL POC Glucose 154 H 150 H (74-106) MG/DL Calcium 8.8 (8.5-10.1) mg/dL 09/08/20 09/08/20 09/08/20 Range/Units 05:40 05:40 07:30 WBC 6.7 (4.5-11.0) K/uL RBC 3.56 L (4.30-5.90) M/uL Hgb 11.3 L (12.0-15.0) g/dL Hct 35.8 L (40.0-54.0) % MCV 101 H (80-98) fL MCH 32 H (27-31) pg MCHC 32 (32-36) % Plt Count 226 (150-400) K/uL Puncture Site Lt radial ABG pH 7.354 (7.350-7.450) ABG pCO2 48.8 H (35.0-42.0) mmHg ABG pO2 83.9 (75.0-100.0) mmHg ABG HCO3 26.5 H (22.0-26.0) mmol/L ABG Total CO2 24.3 (23.0-27.0) mmol/L ABG O2 Saturation 96.5 (95.0-98.0) % ABG O2 Content 15.4 (15.0-23.0) %vol ABG Base Excess 1.0 mm/L ABG Hemoglobin 11.7 L (13.5-18.0) g/dL ABG Oxyhemoglobin 93.3 % ABG Carboxyhemoglobin 2.6 H (0.0-1.6) % ABG Methemoglobin 0.7 % Frederick Test Passed O2 Delivery Device Nasal cannula Oxygen Flow Rate 2.0 L Sodium (140-148) mmol/L Potassium (3.6-5.2) mmol/L Chloride (100-108) mmol/L Carbon Dioxide (21-32) mmol/L Anion Gap (5.0-14.0) mmol/L BUN (7-18) mg/dL Creatinine (0.8-1.3) mg/dL Est Cr Clr Drug Dosing mL/min Estimated GFR (MDRD) (>60) Glucose (74-106) mg/dL POC Glucose 138 H (74-106) MG/DL Calcium (8.5-10.1) mg/dL 09/08/20 Range/Units 11:33 WBC (4.5-11.0) K/uL RBC (4.30-5.90) M/uL Hgb (12.0-15.0) g/dL Hct (40.0-54.0) % MCV (80-98) fL MCH (27-31) pg MCHC (32-36) % Plt Count (150-400) K/uL Puncture Site ABG pH (7.350-7.450) ABG pCO2 (35.0-42.0) mmHg ABG pO2 (75.0-100.0) mmHg ABG HCO3 (22.0-26.0) mmol/L ABG Total CO2 (23.0-27.0) mmol/L ABG O2 Saturation (95.0-98.0) % ABG O2 Content (15.0-23.0) %vol ABG Base Excess mm/L ABG Hemoglobin (13.5-18.0) g/dL ABG Oxyhemoglobin % ABG Carboxyhemoglobin (0.0-1.6) % ABG Methemoglobin % Frederick Test O2 Delivery Device Oxygen Flow Rate L Sodium (140-148) mmol/L Potassium (3.6-5.2) mmol/L Chloride (100-108) mmol/L Carbon Dioxide (21-32) mmol/L Anion Gap (5.0-14.0) mmol/L BUN (7-18) mg/dL Creatinine (0.8-1.3) mg/dL Est Cr Clr Drug Dosing mL/min Estimated GFR (MDRD) (>60) Glucose (74-106) mg/dL POC Glucose 144 H (74-106) MG/DL Calcium (8.5-10.1) mg/dL [place] Results Last 24 Hours: Microbiology 09/06/20 19:00 Aerobic Blood Culture - Preliminary Blood - Arm, Right NO GROWTH AFTER 1 DAY Anaerobic Blood Culture - Preliminary NO GROWTH AFTER 1 DAY 09/06/20 18:45 Aerobic Blood Culture - Preliminary Blood - Arm, Right NO GROWTH AFTER 1 DAY Anaerobic Blood Culture - Preliminary NO GROWTH AFTER 1 DAY Med Orders - Current: Current Medications Acetaminophen (Tylenol) 650 mg PO Q4H PRN PRN Reason: Pain (Mild 1-3)/fever Hydrocodone Bitart/Acetaminophen ([place] 325-5 Mg) 1 tab PO Q4H PRN PRN Reason: Pain (moderate 4-6) Last Admin: 09/08/20 00:41 Dose: 1 tab Documented by: Albuterol (Proventil Neb Soln) 2.5 mg NEB Q4H PRN PRN Reason: Shortness Of Breath/wheezing Allopurinol (Zyloprim) 150 mg PO DAILY [facility] Last Admin: 09/08/20 08:23 Dose: 150 mg Documented by: Apixaban (Eliquis) 5 mg PO BID [facility] Last Admin: 09/08/20 08:30 Dose: 5 mg Documented by: Artificial Tears (Genteal Mild To Moderate Ophth Soln) 1 ml EYEBOTH Q1H PRN PRN Reason: Dryness Last Admin: 09/07/20 23:39 Dose: 2 drop Documented by: Atorvastatin Calcium (Lipitor) 80 mg PO BEDTIME [facility] Last Admin: 09/07/20 20:40 Dose: 80 mg Documented by: Bisacodyl (Dulcolax) 5 mg PO DAILY PRN PRN Reason: Constipation Carvedilol (Coreg) 6.25 mg PO BID [facility] Last Admin: 09/08/20 08:28 Dose: 6.25 mg Documented by: Clopidogrel Bisulfate (Plavix) 75 mg PO DAILY [facility] Last Admin: 09/08/20 08:30 Dose: 75 mg Documented by: Dextrose/Water (Dextrose 50% In Water) 50 ml IVPUSH ASDIRECTED PRN PRN Reason: Hypoglycemia Docusate Sodium (Colace) 100 mg PO BID PRN PRN Reason: Constipation Folic Acid (Folic Acid) 1 mg PO DAILY [facility] Last Admin: 09/08/20 08:32 Dose: 1 mg Documented by: Furosemide (Lasix) 40 mg PO DAILY [facility] Last Admin: 09/08/20 08:32 Dose: 40 mg Documented by: Glucagon (Glucagen) 1 mg IM ASDIRECTED PRN PRN Reason: Hypoglycemia Ceftriaxone Sodium 1 gm/ (Sodium Chloride) 50 mls @ 100 mls/hr IV Q24H [facility] Last Admin: 09/07/20 20:11 Dose: 100 mls/hr Documented by: Insulin Glargine (Lantus Solostar) 12 units SUBCUT BEDTIME [facility] Last Admin: 09/07/20 21:36 Dose: 12 units Documented by: Insulin Human Lispro (Humalog) 0 unit SUBCUT QIDACANDBED [facility]; Protocol Last Admin: 09/08/20 11:14 Dose: Not Given Documented by: Levofloxacin 250 mg/ (Levofloxacin 500 mg) 750 mg PO Q48H [facility] Last Admin: 09/08/20 08:22 Dose: 750 mg Documented by: Losartan Potassium (Cozaar) 100 mg PO DAILY [facility] Last Admin: 09/08/20 08:27 Dose: 100 mg Documented by: Magnesium Oxide (Magnesium Oxide) 400 mg PO BID [facility] Last Admin: 09/08/20 08:26 Dose: 400 mg Documented by: Melatonin (Melatonin) 9 mg PO BEDTIME PRN PRN Reason: Insomnia Last Admin: 09/08/20 00:41 Dose: 9 mg Documented by: Morphine Sulfate (Morphine) 2 mg IVPUSH Q2H PRN PRN Reason: Pain (severe 7-10) Nitroglycerin (Nitrostat) 0.4 mg SL ASDIRECTED PRN PRN Reason: CHEST PAIN Ondansetron HCl (Zofran Odt) 4 mg PO Q6H PRN PRN Reason: Nausea able to take PO Pantoprazole Sodium (Protonix) 40 mg PO ACBREAKFAST [facility] Last Admin: 09/08/20 08:26 Dose: 40 mg Documented by: Sodium Chloride (Saline Flush) 10 ml FLUSH ASDIRECTED PRN PRN Reason: Keep Vein Open Last Admin: 09/06/20 16:45 Dose: 10 ml Documented by: Discontinued Medications Albuterol/Ipratropium (Duoneb 3.0-0.5 Mg/3 Ml) 3 ml NEB QID PRN PRN Reason: Shortness Of Breath/wheezing Sodium Chloride (Normal Saline) 1,000 mls @ 999 mls/hr IV .BOLUS ONE Stop: 09/06/20 17:54 Last Admin: 09/06/20 17:00 Dose: 999 mls/hr Documented by: Ceftriaxone Sodium 1 gm/ (Sodium Chloride) 50 mls @ 100 mls/hr IV Q24H [facility] Last Admin: 09/06/20 20:26 Dose: Not Given Documented by: Azithromycin 500 mg/ Sodium (Chloride) 250 mls @ 250 mls/hr IV Q24H [facility] Last Admin: 09/06/20 18:41 Dose: 250 mls/hr Documented by: Sodium Chloride (Normal Saline) 1,000 mls @ 75 mls/hr IV ASDIRECTED [facility] Levofloxacin/Dextrose 750 mg/ (Premix) 150 mls @ 100 mls/hr IV ONETIME ONE Stop: 09/06/20 21:39 Last Admin: 09/06/20 20:51 Dose: 100 mls/hr Documented by: Ceftriaxone Sodium 1 gm/ (Sodium Chloride) 50 mls @ 100 mls/hr IV ONETIME ONE Stop: 09/06/20 20:39 Last Admin: 09/06/20 20:50 Dose: 100 mls/hr Documented by: Influenza Virus Vaccine (Pharmacy To Dose - Influenza Vaccine) 1 each IM ONETIME ONE Stop: 09/07/20 10:01 Influenza Virus Vaccine (Fluzone High-Dose Quad 2020-21) 240 mcg IM .ONCE ONE Stop: 09/07/20 21:01 Last Admin: 09/08/20 11:45 Dose: Not Given Documented by: Pneumococcal Polyvalent Vaccine (Pneumovax 23) 0.5 ml IM .ONCE ONE Stop: 09/07/20 10:01 Last Admin: 09/07/20 10:21 Dose: 0.5 ml Documented by: - Exam Quality Assessment: No: Supplemental Oxygen General: Alert, Cooperative, No Acute Distress Lungs: Normal Respiratory Effort. No: Wheezing Cardiovascular: Regular Rate, Regular Rhythm GI/Abdominal Exam: Soft, No Distention Extremities: No Pedal Edema. No: Increased Warmth Skin: Warm, Dry Psy/Mental Status: Alert, Normal Affect Sepsis Event Note - Evaluation Sepsis Screening Result: No Definite Risk - Focused Exam Vital Signs: Vital Signs Temp Pulse Pulse Resp BP BP BP 09/08/20 10:00 36.6 C 67 18 109/53 L 09/08/20 08:28 67 118/56 L 09/08/20 08:27 118/56 L 09/08/20 06:00 36.8 C 67 17 118/56 L 09/08/20 02:00 35.4 C L 64 20 97/53 L Pulse Ox 09/08/20 10:00 92 L 09/08/20 08:28 09/08/20 08:27 09/08/20 06:00 90 L 09/08/20 02:00 94 L - Problem List Review Problem List Initiated/Reviewed/Updated: Yes - My Orders Last 24 Hours: My Active Orders 09/07/20 11:30 Accu Check [Blood Glucose Check, Bedside] [RC] QIDACANDBED 09/07/20 12:49 Convert IV to Saline Lock [OM.PC] Routine 09/07/20 23:22 Hypromellose [GenTeal Mild to Moderate Ophth Soln] 1 ml EYEBOTH Q1H PRN 09/08/20 00:10 Melatonin 9 mg PO BEDTIME PRN 09/08/20 07:30 Levofloxacin [Levaquin] 750 mg PO Q48H 09/08/20 16:30 GLUCOSE POC LAB TO COLLECT JPM [POC] QIDADBED 09/08/20 21:00 GLUCOSE POC LAB TO COLLECT JPM [POC] QIDADBED 09/09/20 07:30 GLUCOSE POC LAB TO COLLECT JPM [POC] QIDADBED 09/09/20 11:30 GLUCOSE POC LAB TO COLLECT JPM [POC] QIDACANDBED 09/09/20 16:30 GLUCOSE POC LAB TO COLLECT JPM [POC] QIDACANDBED 09/09/20 21:00 GLUCOSE POC LAB TO COLLECT JPM [POC] QIDACANDBED 09/10/20 07:30 GLUCOSE POC LAB TO COLLECT JPM [POC] QIDADBED 09/10/20 11:30 GLUCOSE POC LAB TO COLLECT JPM [POC] QIDACANDBED 09/10/20 16:30 GLUCOSE POC LAB TO COLLECT JPM [POC] QIDACANDBED 09/10/20 21:00 GLUCOSE POC LAB TO COLLECT JPM [POC] QIDACANDBED 09/11/20 07:30 GLUCOSE POC LAB TO COLLECT JPM [POC] QIDACANDBED - Plan Plan:: ASSESSMENT AND PLAN - Mixed delirium with acute generalized weakness-probable contribution from mild bronchitis and also the Librium. Clinically he is doing better. -Continue empiric antibiotics for bronchitis -Supplement oxygen if needed -Up to chair and regular walks -Saline lock IV -Follow-up cultures -Librium has been discontinued Diabetes Type 2 - blood sugar levels have been good. -Insulin long acting Lantus 12 units subcut -Insulin short acting low dose sliding scale coverage -Blood glucose testing before meals and at bedtime History of Covid 19-Mr. Ames test postive on 07/08/2000. No active symptoms. -No indication for isolation Coronary artery disease-recent history of Non-Stemi NM 08/22/2020 with stents x2 on 08/28/2020 at [facility]. 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 -continue outpatient medications Sleep Apnea -Continue outpatient CPAP treatment Alcohol dependence-no evidence for alcohol withdrawal so far. Maintenance issues -Nutrition: consistent carb diet -DVT: Apixaban -GI; PPI Disposition: I anticipate discharge home with family and home care, possibly tomorrow if stable and improving overnight Barron Cooley MD
[2020-09-08] MEDS: cefTRIAXone 1 GM in Sodium Chloride 0.9% 50 ML IV SCH (20:24)
[2020-09-08] MEDS: Insulin Glargine,Human Rec. Analog 100 Units/ML 3 ML Pen SUBCUT SCH (21:05)
[2020-09-08] MEDS: atorvaSTATin 20 MG Tab PO SCH (21:09)
[2020-09-08] MEDS: Hypromellose 0.3% Ophth Soln 15 ML Bottle EYEBOTH PRN (21:16)
[2020-09-09] MEDS: Pantoprazole 40 MG Tab.CR PO SCH (07:46)
[2020-09-09] MEDS: Insulin Lispro 100 Unit/ML 3 ML KwikPen SUBCUT SCH (08:18)
[2020-09-09 08:53] VITALS: BP 112/52
[2020-09-09] MEDS: Carvedilol 3.125 MG Tab PO SCH (08:53)
[2020-09-09] MEDS: Clopidogrel 75 MG Tab PO SCH (08:55)
[2020-09-09] MEDS: Magnesium Oxide 400 MG Tab PO SCH (08:55)
[2020-09-09] MEDS: Folic Acid 1 MG Tab PO SCH (08:56)
[2020-09-09] MEDS: Allopurinol 100 MG Tab PO SCH (08:56)
[2020-09-09] MEDS: Apixaban 5 MG Tab PO SCH (08:56)
[2020-09-09] MEDS: Furosemide 40 MG Tab PO SCH (08:57)
[2020-09-09] MEDS: Losartan 50 MG Tab PO SCH (08:57)
[2020-09-09 08:59] VITALS: PULSE 98
[2020-09-09] MEDS: Acetaminophen/HYDROcodone 325-5 MG Tab PO PRN (09:28)
--- NOTE | 2020-09-09 10:46 | PCM.DCSUM1 ---
Discharge Summary - Hospital Course Brief History: 69-year-old male with history of recent coronary artery stenting, obesity, obstructive sleep apnea and insulin-dependent diabetes who presented with progressive weakness and confusion. He was admitted for management of a hypoactive delirium with acute generalized weakness as well as acute respiratory failure with both hypoxia and hypercapnia. Diagnosis: Stroke: No - Discharge Data Discharge Date: 09/09/20 Discharge Disposition: Home, W Home Health Agency 06 Condition: Fair - Referral to Home Health Date of Face to Face Encounter: 09/09/20 Reason for Homebound Status: Acute weakness following stenting to multiple coronary arteries Primary Care Physician: Aly Nash NP Skilled Need: Nursing and physical therapy - Discharge Diagnosis/Problem(s) (1) Acute hypoactive medication-induced delirium SNOMED Code(s): 921987071, 114606789 ICD Code: R41.0 - DISORIENTATION, UNSPECIFIED; T50.905A - ADVERSE EFFECT OF UNSP DRUG/MEDS/BIOL SUBST, INIT Status: Acute (2) Acute respiratory failure with hypoxia and hypercapnia SNOMED Code(s): 468158637 ICD Code: J96.01 - ACUTE RESPIRATORY FAILURE WITH HYPOXIA; J96.02 - ACUTE RESPIRATORY FAILURE WITH HYPERCAPNIA Status: Acute (3) CAD (coronary artery disease) SNOMED Code(s): 72979421 ICD Code: I25.10 - ATHSCL HEART DISEASE OF [place] CORONARY ARTERY W/O ANG PCTRS Status: Chronic Qualifiers: Coronary Disease-Associated Artery/Lesion type: [place] artery [place] vs. transplanted heart: [place] heart Associated angina: without angina Qualified Code(s): I25.10 - Atherosclerotic heart disease of [place] coronary artery without angina pectoris (4) Alcohol dependence SNOMED Code(s): 31669638 ICD Code: F10.20 - ALCOHOL DEPENDENCE, UNCOMPLICATED Status: Chronic Qualifiers: Substance use status: uncomplicated Qualified Code(s): F10.20 - Alcohol dependence, uncomplicated (5) Diabetes mellitus type 2, insulin dependent SNOMED Code(s): 647238480 ICD Code: E11.9 - TYPE 2 DIABETES MELLITUS WITHOUT COMPLICATIONS; Z79.4 - DETENTION (CURRENT) USE OF INSULIN Status: Chronic Priority: High (6) Sleep apnea SNOMED Code(s): 61158859 ICD Code: G47.30 - SLEEP APNEA, UNSPECIFIED Status: Chronic Priority: Low Qualifiers: Sleep apnea type: obstructive Qualified Code(s): G47.33 - Obstructive sleep apnea (adult) (pediatric) - Patient Summary/Data Hospital Course: Jason presented to the emergency room with progressive weakness and confusion. Laboratory work-up in the emergency room was notable for stage III chronic kidney disease, normal white blood cell count and mild respiratory acidosis with CO2 retention and a PCO2 in the low 50s. Chest x-ray was fairly unremarkable but some possible patchy changes were noted. A CT scan of the chest, abdomen and pelvis was undertaken and was fairly unremarkable with no evidence for pneumonia or congestive heart failure. A head CT was completed and was unremarkable. Review of his medications suggested that he was recently started on Librium with the intention of boarding off alcohol withdrawal after his hospital discharge. This was suspected to be the culprit for his difficulties though occult infection such as bronchitis could not be ruled out. He received some IV fluids as well as empiric antibiotics and was admitted to the hospital for further management. Over the next couple of days we did see slow but steady improvement. His hypoxia resolved. His blood gases trended towards improvement and normalization of the PCO2. His mental status has improved dramatically and he seems to be back to baseline. He was too weak to even sit up in bed at the time of admission but by the time of discharge was ambulating in the halls using a walker. He feels much better but not quite back to baseline. His believes that he has made significant improvements. I suspect that the Librium caused his difficulties with the weakness and confusion. I suspect this was the case because of his mild chronic kidney disease as well as probable underlying hepatic dysfunction with long-term alcohol use leading to accumulation of metabolites. He has done well without the medication. There is been no evidence for alcohol withdrawal. I believe he is stable and safe for discharge. He was interested in home care to help ease his transition home. - Patient Instructions Diet: Diabetic Diet Activity: As Tolerated Showering/Bathing: May Shower Other/Special Instructions: 1. You were in the hospital for management of weakness and confusion that resulted from the use of Librium. I suspect that with your slightly reduced kidney function this medication was not cleared as expected from your system. As the medication built up and led to increasing weakness and confusion. Your condition has been improving after we stop this medication and provided some IV fluid hydration. I recommend that you discontinue this medication permanently. We do not need to make any other changes to your medications. You may resume your usual activities as tolerated but it may take several days to build up your strength again. Continue your usual medications as previously prescribed with the exception of the Librium. 3. Follow-up with your primary care as scheduled. 4. I have placed a referral to home health care. They will provide nursing and physical therapy services to improve your strength and endurance after your transition from the hospital to home. 2. - Discharge Plan *PRESCRIPTION DRUG MONITORING PROGRAM REVIEWED*: Not Applicable *COPY OF PRESCRIPTION DRUG MONITORING REPORT IN PATIENT DENG: Not Applicable Home Medications: Home Meds Furosemide [Lasix] 40 mg PO DAILY 01/17/14 [History] Losartan [Cozaar] 100 mg PO DAILY 01/17/14 [History] allopurinoL [Zyloprim] 150 mg PO DAILY 01/17/14 [History] metFORMIN [Glucophage XR] 1,000 mg PO BIDMEALS 01/17/14 [History] [place]-3S/DHA/Epa/Fish Oil [[place]-3 Fish Oil 1,000 mg Sfgl] 1 tab PO TID 10/27/18 [History] Apixaban [Eliquis] 5 mg PO BID 09/01/20 [History] Clopidogrel [Plavix] 75 mg PO DAILY 09/01/20 [History] Cyanocobalamin (Vitamin B-12) [Vitamin B-12] 250 mcg PO DAILY 09/01/20 [History] Fluticasone Furoate [Arnuity Ellipta] 1 spray IH ASDIRECTED PRN 09/01/20 [Hi story] Folic Acid 1 mg PO DAILY 09/01/20 [History] Insulin Glarg,Human.Rec.Analog [Lantus Solostar] 12 unit SUBCUT BEDTIME 09/01/20 [History] Magnesium Oxide [Magnesium] 500 mg PO BID 09/01/20 [History] Nitroglycerin [Nitrostat] 0.4 mg SL ASDIRECTED 09/01/20 [History] Omeprazole 40 mg PO DAILY 09/01/20 [History] Oxymetazoline [Afrin Original 0.05% Nasal [place]] 1 inh UMESH ASDIRECTED 09/01/20 [History] atorvaSTATin [Lipitor] 80 mg PO BEDTIME 09/01/20 [History] carvediloL [Carvedilol] 6.25 mg PO BID 09/01/20 [History] Oxygen Therapy Mode: Room Air Patient Handouts: Weakness, [id number] Referrals: Aly Nash NP [Primary Care Provider] - 09/13/20 1:00 pm - Discharge Summary/Plan Comment DC Time >30 min.: Yes (35-setting up home care) - Patient Data Vitals - Most Recent: Last Vital Signs Temp 36.6 C 09/09/20 08:48 Pulse 98 09/09/20 08:53 Resp 20 09/09/20 08:48 BP 112/52 L 09/09/20 08:57 Pulse Ox 97 09/09/20 08:48 Weight - Most Recent: 124.738 kg I&O - Last 24 hours: Intake & Output 09/08/20 09/09/20 09/09/20 22:59 06:59 14:59 Intake Total 50 300 Output Total 100 100 Balance -50 300 -100 Lab Results - Last 24 hrs: Laboratory Results - last 24 hr 09/08/20 09/08/20 09/08/20 Range/Units 11:33 16:54 21:04 POC Glucose 144 H 157 H 134 H (74-106) MG/DL 09/09/20 Range/Units 07:29 POC Glucose 111 H (74-106) MG/DL THOMAS Results - Last 24 hrs: Microbiology 09/06/20 18:45 Aerobic Blood Culture - Preliminary Blood - Arm, Right NO GROWTH AFTER 2 DAYS Anaerobic Blood Culture - Preliminary NO GROWTH AFTER 2 DAYS 09/06/20 19:00 Aerobic Blood Culture - Preliminary Blood - Arm, Right NO GROWTH AFTER 2 DAYS Anaerobic Blood Culture - Preliminary NO GROWTH AFTER 2 DAYS Med Orders - Current: Current Medications Acetaminophen (Tylenol) 650 mg PO Q4H PRN PRN Reason: Pain (Mild 1-3)/fever Hydrocodone Bitart/Acetaminophen ([place] 325-5 Mg) 1 tab PO Q4H PRN PRN Reason: Pain (moderate 4-6) Last Admin: 09/09/20 09:28 Dose: 1 tab Documented by: Albuterol (Proventil Neb Soln) 2.5 mg NEB Q4H PRN PRN Reason: Shortness Of Breath/wheezing Allopurinol (Zyloprim) 150 mg PO DAILY [place] Last Admin: 09/09/20 08:56 Dose: 150 mg Documented by: Apixaban (Eliquis) 5 mg PO BID [facility] Last Admin: 09/09/20 08:56 Dose: 5 mg Documented by: Artificial Tears ([place]enteal Mild To Moderate Ophth Soln) 1 ml EYEBOTH Q1H PRN PRN Reason: Dryness Last Admin: 09/08/20 21:16 Dose: 1 drop Documented by: Atorvastatin Calcium (Lipitor) 80 mg PO BEDTIME [facility] Last Admin: 09/08/20 21:09 Dose: 80 mg Documented by: Bisacodyl (Dulcolax) 5 mg PO DAILY PRN PRN Reason: Constipation Carvedilol (Coreg) 6.25 mg PO BID [facility] Last Admin: 09/09/20 08:53 Dose: 6.25 mg Documented by: Clopidogrel Bisulfate (Plavix) 75 mg PO DAILY [facility] Last Admin: 09/09/20 08:55 Dose: 75 mg Documented by: Dextrose/Water (Dextrose 50% In Water) 50 ml IVPUSH ASDIRECTED PRN PRN Reason: Hypoglycemia Docusate Sodium (Colace) 100 mg PO BID PRN PRN Reason: Constipation Last Admin: 09/08/20 13:00 Dose: 100 mg Documented by: Folic Acid (Folic Acid) 1 mg PO DAILY [facility] Last Admin: 09/09/20 08:56 Dose: 1 mg Documented by: Furosemide (Lasix) 40 mg PO DAILY [facility] Last Admin: 09/09/20 08:57 Dose: 40 mg Documented by: Glucagon (Glucagen) 1 mg IM ASDIRECTED PRN PRN Reason: Hypoglycemia Ceftriaxone Sodium 1 gm/ (Sodium Chloride) 50 mls @ 100 mls/hr IV Q24H [facility] Last Admin: 09/08/20 20:24 Dose: 100 mls/hr Documented by: Insulin Glargine (Lantus Solostar) 12 units SUBCUT BEDTIME [facility] Last Admin: 09/08/20 21:05 Dose: 12 units Documented by: Insulin Human Lispro (Humalog) 0 unit SUBCUT QIDACANDBED [facility]; Protocol Last Admin: 09/09/20 08:18 Dose: Not Given Documented by: Levofloxacin 250 mg/ (Levofloxacin 500 mg) 750 mg PO Q48H [facility] Last Admin: 09/08/20 08:22 Dose: 750 mg Documented by: Losartan Potassium (Cozaar) 100 mg PO DAILY [facility] Last Admin: 09/09/20 08:57 Dose: 100 mg Documented by: Magnesium Oxide (Magnesium Oxide) 400 mg PO BID [facility] Last Admin: 09/09/20 08:55 Dose: 400 mg Documented by: Melatonin (Melatonin) 9 mg PO BEDTIME PRN PRN Reason: Insomnia Last Admin: 09/08/20 21:16 Dose: 9 mg Documented by: Morphine Sulfate (Morphine) 2 mg IVPUSH Q2H PRN PRN Reason: Pain (severe 7-10) Nitroglycerin (Nitrostat) 0.4 mg SL ASDIRECTED PRN PRN Reason: CHEST PAIN Ondansetron HCl (Zofran Odt) 4 mg PO Q6H PRN PRN Reason: Nausea able to take PO Pantoprazole Sodium (Protonix) 40 mg PO ACBREAKFAST [facility] Last Admin: 09/09/20 07:46 Dose: 40 mg Documented by: Sodium Chloride (Saline Flush) 10 ml FLUSH ASDIRECTED PRN PRN Reason: Keep Vein Open Last Admin: 09/06/20 16:45 Dose: 10 ml Documented by: Discontinued Medications Albuterol/Ipratropium (Duoneb 3.0-0.5 Mg/3 Ml) 3 ml NEB QID PRN PRN Reason: Shortness Of Breath/wheezing Sodium Chloride (Normal Saline) 1,000 mls @ 999 mls/hr IV .BOLUS ONE Stop: 09/06/20 17:54 Last Admin: 09/06/20 17:00 Dose: 999 mls/hr Documented by: Ceftriaxone Sodium 1 gm/ (Sodium Chloride) 50 mls @ 100 mls/hr IV Q24H [facility] Last Admin: 09/06/20 20:26 Dose: Not Given Documented by: Azithromycin 500 mg/ Sodium (Chloride) 250 mls @ 250 mls/hr IV Q24H [facility] Last Admin: 09/06/20 18:41 Dose: 250 mls/hr Documented by: Sodium Chloride (Normal Saline) 1,000 mls @ 75 mls/hr IV ASDIRECTED [facility] Levofloxacin/Dextrose 750 mg/ (Premix) 150 mls @ 100 mls/hr IV ONETIME ONE Stop: 09/06/20 21:39 Last Admin: 09/06/20 20:51 Dose: 100 mls/hr Documented by: Ceftriaxone Sodium 1 gm/ (Sodium Chloride) 50 mls @ 100 mls/hr IV ONETIME ONE Stop: 09/06/20 20:39 Last Admin: 09/06/20 20:50 Dose: 100 mls/hr Documented by: Influenza Virus Vaccine (Pharmacy To Dose - Influenza Vaccine) 1 each IM ONETIME ONE Stop: 09/07/20 10:01 Influenza Virus Vaccine (Fluzone High-Dose [place] 2020-21) 240 mcg IM .ONCE ONE Stop: 09/07/20 21:01 Last Admin: 09/08/20 11:45 Dose: Not Given Documented by: Pneumococcal Polyvalent Vaccine (Pneumovax 23) 0.5 ml IM .ONCE ONE Stop: 09/07/20 10:01 Last Admin: 09/07/20 10:21 Dose: 0.5 ml Documented by:
== END 2020-09-09 12:09 | disposition home health service (06) | DRG 947 ==
LOC: JP.ED 16:00 → JP.MS 18:50
PROVIDERS: ADMIT Internal Medicine; ATTEND Internal Medicine
DX: R41.0 Disorientation, unspecified (principal); R09.02 Hypoxemia; R94.6 Abnormal results of thyroid function studies; J96.01 Acute respiratory failure with hypoxia; J96.02 Acute respiratory failure with hypercapnia; E87.2 Acidosis; J30.9 Allergic rhinitis, unspecified; H54.7 Unspecified visual loss; I11.0 Hypertensive heart disease with heart failure; I50.9 Heart failure, unspecified; G47.30 Sleep apnea, unspecified; K59.09 Other constipation; K57.90 Diverticulosis of intestine, part unspecified, without perforation or abscess without bleeding; G89.29 Other chronic pain; M54.9 Dorsalgia, unspecified; M54.2 Cervicalgia; M19.90 Unspecified osteoarthritis, unspecified site; Z86.73 Personal history of transient ischemic attack (TIA), and cerebral infarction without residual deficits; Z87.442 Personal history of urinary calculi; F32.9 Major depressive disorder, single episode, unspecified; F41.9 Anxiety disorder, unspecified; R53.1 Weakness; Z66 Do not resuscitate; T42.4X5A Adverse effect of benzodiazepines, initial encounter; I25.10 Atherosclerotic heart disease of native coronary artery without angina pectoris; Z86.19 Personal history of other infectious and parasitic diseases; F10.20 Alcohol dependence, uncomplicated; E11.9 Type 2 diabetes mellitus without complications; Z79.4 Long term (current) use of insulin; G47.33 Obstructive sleep apnea (adult) (pediatric); N18.30 Chronic kidney disease, stage 3 unspecified; Z79.899 Other long term (current) drug therapy; Z79.01 Long term (current) use of anticoagulants; Z79.02 Long term (current) use of antithrombotics/antiplatelets; Z95.5 Presence of coronary angioplasty implant and graft; I25.2 Old myocardial infarction; Z20.828 Contact with and (suspected) exposure to other viral communicable diseases
CPT/HCPCS: 36415; 36600; 70450; 71045; 71250; 74176; 80048; 80053; 80307; 81001; 82140; 82150; 82248; 82803; 82962; 83690; 83735; 83880; 84439; 84443; 84484; 85025; 85027; 85379; 85610; 86140; 87040; 90732; 96374; 99222-AI; 99232; 99233; 99239; 99283; 99285-25; A9270-GY; G0009; J0456; J0696; J1815; J1815-GY; J1956; J7030; J7050; U0002

== ENCOUNTER 2020-09-14 04:38 | Emergency (ER) | payer MEDICARE, BC ==
[2020-09-14 05:14] VITALS: BP 129/70; PULSE 64
[2020-09-14] MEDS ORDERED: HYDROmorphone 1 MG/ML Syringe IM ONE (05:41)
--- NOTE | 2020-09-14 05:53 | EDM.PDOC ---
ED HPI GENERAL MEDICAL PROBLEM - General Chief Complaint: Neck Problem Stated Complaint: NECK PAIN Time Seen by Provider: 09/14/20 05:15 Source of Information: Reports: Patient, Family, Old Records, RN Notes Reviewed History Limitations: Reports: No Limitations - History of Present Illness INITIAL COMMENTS - FREE TEXT/NARRATIVE: 69-year-old gentleman presents emergency department today complaint of neck pain, he has a known history of cervical spondylosis has been dealing with this for several years did control his pain with tramadol however was recently started on Librium for his alcohol abuse and dependence unfortunately he had side effect of that medication was hospitalized. After stopping that medication he has not restarted his tramadol. He states his biggest issue is he is having problems sleeping because of the chronic pain, pain is minimal when he is sitting in a chair however when he lays down pain becomes more intense neck pain Pain Score (Numeric/FACES): 4 - Related Data Allergies Allergy/AdvReac Type Severity Reaction Status Date / Time No Known Allergies Allergy Verified 09/14/20 05:01 Home Meds: Home Meds Furosemide [Lasix] 40 mg PO DAILY 01/17/14 [History] Losartan [Cozaar] 100 mg PO DAILY 01/17/14 [History] allopurinoL [Zyloprim] 150 mg PO DAILY 01/17/14 [History] metFORMIN [Glucophage XR] 1,000 mg PO BIDMEALS 01/17/14 [History] [place]-3S/DHA/Epa/Fish Oil [[place]-3 Fish Oil 1,000 mg Sfgl] 1 tab PO TID 10/27/18 [History] Apixaban [Eliquis] 5 mg PO BID 09/01/20 [History] Clopidogrel [Plavix] 75 mg PO DAILY 09/01/20 [History] Cyanocobalamin (Vitamin B-12) [Vitamin B-12] 250 mcg PO DAILY 09/01/20 [History] Fluticasone Furoate [Arnuity Ellipta] 1 spray IH ASDIRECTED PRN 09/01/20 [History] Folic Acid 1 mg PO DAILY 09/01/20 [History] Insulin Glarg,Human.Rec.Analog [Lantus Solostar] 12 unit SUBCUT BEDTIME 09/01/20 [History] Magnesium Oxide [Magnesium] 500 mg PO BID 09/01/20 [History] Nitroglycerin [Nitrostat] 0.4 mg SL ASDIRECTED 09/01/20 [History] Omeprazole 40 mg PO DAILY 09/01/20 [History] Oxymetazoline [Afrin Original 0.05% Nasal [place]] 1 inh UMESH ASDIRECTED 09/01/20 [History] atorvaSTATin [Lipitor] 80 mg PO BEDTIME 09/01/20 [History] carvediloL [Carvedilol] 6.25 mg PO BID 09/01/20 [History] traMADol HCl [Tramadol HCl] 50 mg PO Q6H PRN 09/14/20 [History] Past Medical History HEENT History: Reports: Allergic Rhinitis, Cataract, Impaired Vision Cardiovascular History: Reports: CAD, Heart Failure, High Cholesterol, Hypertension, [place], Stents Other Cardiovascular History: enlarged aorta Respiratory History: Reports: Sleep Apnea Other Respiratory History: c-pap Gastrointestinal History: Reports: Chronic Constipation, Chronic Diarrhea, Diverticulosis, Hemorrhoids Genitourinary History: Reports: Renal Calculus Musculoskeletal History: Reports: Back Pain, Chronic, Neck Pain, Chronic, Osteoarthritis, Other (See Below) Other Musculoskeletal History: left shoulder Neurological History: Reports: CVA Other Neuro History: vertebral artery occlusion Psychiatric History: Reports: Addiction, Anxiety, Bipolar, Depression, Other (See Below) Other Psychiatric History: major depressive disorder Endocrine/Metabolic History: Reports: Diabetes, Type II, Obesity/BMI 30+ Hematologic History: Reports: Anticoagulation Therapy Immunologic History: Reports: None Oncologic (Cancer) History: Reports: Prostate Dermatologic History: Reports: None - Infectious Disease History Infectious Disease History: Reports: Chicken Pox - Past Surgical History HEENT Surgical History: Reports: Cataract Surgery Cardiovascular Surgical History: Reports: Coronary Artery Stent, Other (See Below) Other Cardiovascular Surgeries/Procedures: ANGIOGRAM ABAOUT 20 YEARS AGO. oversized aorta Respiratory Surgical History: Reports: None GI Surgical History: Reports: Cholecystectomy, Colonoscopy, Hernia, Abdominal Male Surgical History: Reports: Prostatectomy, Other (See Below) Other Male Surgeries/Procedures: PILIDINOL CYST SURGERY Endocrine Surgical History: Reports: None Neurological Surgical History: Reports: Spinal Fusion, Other (See Below) Other Neurological Surgeries/Procedures: Spinal cord stimulator Musculoskeletal Surgical History: Reports: Shoulder Surgery Oncologic Surgical History: Reports: None Dermatological Surgical History: Reports: None Social & Family History - Family History Family Medical History: No Pertinent Family History - Tobacco Use Tobacco Use Status *Q: Never Tobacco User - Caffeine Use Caffeine Use: Reports: None - Alcohol Use Days Per Week of Alcohol Use: 7 Number of Drinks Per Day: 5 Total Drinks Per Week: 35 - Recreational Drug Use Recreational Drug Use: No - Living Situation & Occupation Living situation: Reports: , with Family Occupation: Retired (lives with , [place], [place].) ED ROS GENERAL - Review of Systems Review Of Systems: See Below Constitutional: Reports: No Symptoms HEENT: Reports: No Symptoms Respiratory: Reports: No Symptoms Cardiovascular: Reports: No Symptoms GI/Abdominal: Reports: No Symptoms Musculoskeletal: Reports: Neck Pain Neurological: Reports: No Symptoms ED EXAM, UPPER BACK/NECK PAIN - Physical Exam Exam: See Below Exam Limited By: No Limitations General Appearance: Alert, WD/WN, No Apparent Distress Neck Exam: Non-Tender, Normal Alignment, Normal Inspection, Limited Range of Motion, Painful Range of Motion, Stiff Neck. No: Paraspinous Muscle Tender, Spinous Processes Tender, Tenderness, Tender Lateral, Tender Midline Nexus Criteria: No: Posterior, Midline Cervical Tenderness, Evidence of Intoxication, Altered Level of Consciousness, Focal Neurological Deficit, Painful Distraction Injuries Cardiovascular/Respiratory: No Respiratory Distress Back Exam: Normal Inspection, Full Range of Motion. No: CVA Tenderness (R), CVA Tenderness (L) Course - Vital Signs Last Recorded V/S: Last Vital Signs Temp 97.1 F 09/14/20 05:10 Pulse 64 09/14/20 05:10 Resp 16 09/14/20 05:10 BP 129/70 09/14/20 05:10 Pulse Ox 94 L 09/14/20 05:10 - Orders/Labs/Meds Meds: Medications Discontinued Medications Generic Name Dose Route Start Last Admin Trade Name Carlos Enriqueq PRN Reason Stop Dose Admin Hydromorphone HCl 1 mg 09/14/20 05:41 Dilaudid IM 09/14/20 05:42 ONETIME ONE Departure - Departure Time of Disposition: 05:52 Disposition: Home, Self-Care 01 Condition: Fair Clinical Impression: Cervical spondylosis - Discharge Information Referrals: Aly Nash [employer] 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 [Primary Care Provider] - Additional Instructions: Use tramadol as needed control pain control, radiology should be calling you with an appointment time for your CAT scan of the neck, keep your follow-up appointment with your primary care Sepsis Event Note (ED) - Evaluation Sepsis Screening Result: No Definite Risk - Focused Exam Vital Signs: Vital Signs Temp Pulse Resp BP Pulse Ox 09/14/20 05:10 97.1 F 64 16 129/70 94 L - Assessment/Plan Plan: Assessment Acuity = chronic Site and laterality = neck pain Etiology = spondylosis Manifestations = none Location of injury = Home Lab values = none Plan Prescription written for 12 tramadol 50 mg p.o. 3 times daily as needed total #15, also provided 1 mg Dilaudid IM he is scheduled for CT of the neck which has been ordered, keep follow-up appointment with primary care This note was dictated using [employer] voice recognition software please call with any questions on syntax or grammar.
== END 2020-09-14 06:04 | disposition home or self-care (01) ==
LOC: JP.ED 04:38
DX: M47.812 Spondylosis without myelopathy or radiculopathy, cervical region (principal); E78.00 Pure hypercholesterolemia, unspecified; I25.10 Atherosclerotic heart disease of native coronary artery without angina pectoris; I11.0 Hypertensive heart disease with heart failure; I50.9 Heart failure, unspecified; I25.2 Old myocardial infarction; M19.90 Unspecified osteoarthritis, unspecified site; E66.9 Obesity, unspecified; Z68.41 Body mass index [BMI] 40.0-44.9, adult; Z86.73 Personal history of transient ischemic attack (TIA), and cerebral infarction without residual deficits; F31.9 Bipolar disorder, unspecified; E11.9 Type 2 diabetes mellitus without complications; Z79.01 Long term (current) use of anticoagulants; Z79.02 Long term (current) use of antithrombotics/antiplatelets; Z79.4 Long term (current) use of insulin; Z79.899 Other long term (current) drug therapy; Z95.5 Presence of coronary angioplasty implant and graft
CPT/HCPCS: 96372; 99283; J1170

== ENCOUNTER 2020-09-25 15:01 | Emergency (ER) | payer MEDICARE, BC ==
[2020-09-25] MEDS ORDERED: Nitroglycerin 0.4 MG Tab.SL SL PRN (15:41)
[2020-09-25] MEDS ORDERED: Morphine 4 MG/ML Syringe IVPUSH PRN (15:41)
[2020-09-25] MEDS ORDERED: Sodium Chloride 0.9% 10 ML Syringe FLUSH PRN (15:41)
--- NOTE | 2020-09-25 15:44 | EDM.PDOC ---
ED HPI GENERAL MEDICAL PROBLEM - General Chief Complaint: Chest Pain Stated Complaint: TROUBLE BREATHING, CHEST PAIN Time Seen by Provider: 09/25/20 15:36 Source of Information: Reports: Patient, RN Notes Reviewed History Limitations: Reports: No Limitations - History of Present Illness INITIAL COMMENTS - FREE TEXT/NARRATIVE: 69-year-old gentleman presents emergency department today complaint of chest pain, states chest pain started about 4 hours prior he does feel short of breath no nausea no diaphoresis does have a history of chronic neck pain also history of coronary artery disease - Related Data Allergies Allergy/AdvReac Type Severity Reaction Status Date / Time No Known Allergies Allergy Verified 09/14/20 05:01 Home Meds: Home Meds Furosemide [Lasix] 40 mg PO DAILY 01/17/14 [History] Losartan [Cozaar] 100 mg PO DAILY 01/17/14 [History] allopurinoL [Zyloprim] 150 mg PO DAILY 01/17/14 [History] metFORMIN [Glucophage XR] 1,000 mg PO BIDMEALS 01/17/14 [History] [place]-3S/DHA/Epa/Fish Oil [[place]-3 Fish Oil 1,000 mg Sfgl] 3,000 mg PO DAILY 10/27/18 [History] Apixaban [Eliquis] 5 mg PO BID 09/01/20 [History] Clopidogrel [Plavix] 75 mg PO DAILY 09/01/20 [History] Fluticasone Furoate [Arnuity Ellipta] 1 spray IH ASDIRECTED PRN 09/01/20 [History] Folic Acid 1 mg PO DAILY 09/01/20 [History] Insulin Glarg,Human.Rec.Analog [Lantus Solostar] 12 unit SUBCUT BEDTIME 09/01/20 [History] Omeprazole 40 mg PO DAILY 09/01/20 [History] Oxymetazoline [Afrin Original 0.05% Nasal [place]] 1 inh UMESH ASDIRECTED 09/01/20 [History] atorvaSTATin [Lipitor] 80 mg PO BEDTIME 09/01/20 [History] carvediloL [Carvedilol] 6.25 mg PO BID 09/01/20 [History] Nitroglycerin [Nitrostat] 1 tab SL ASDIRECTED PRN 09/25/20 [History] Past Medical History HEENT History: Reports: Allergic Rhinitis, Cataract, Impaired Vision Cardiovascular History: Reports: CAD, Heart Failure, High Cholesterol, Hypertension, [place], Stents Other Cardiovascular History: enlarged aorta Respiratory History: Reports: Sleep Apnea Other Respiratory History: c-pap Gastrointestinal History: Reports: Chronic Constipation, Chronic Diarrhea, Diverticulosis, Hemorrhoids Genitourinary History: Reports: Renal Calculus Musculoskeletal History: Reports: Back Pain, Chronic, Neck Pain, Chronic, Osteoarthritis, Other (See Below) Other Musculoskeletal History: left shoulder Neurological History: Reports: CVA Other Neuro History: vertebral artery occlusion Psychiatric History: Reports: Addiction, Anxiety, Bipolar, Depression, Other (See Below) Other Psychiatric History: major depressive disorder Endocrine/Metabolic History: Reports: Diabetes, Type II, Obesity/BMI 30+ Hematologic History: Reports: Anticoagulation Therapy Immunologic History: Reports: None Oncologic (Cancer) History: Reports: Prostate Dermatologic History: Reports: None - Infectious Disease History Infectious Disease History: Reports: Chicken Pox - Past Surgical History Head Surgeries/Procedures: Reports: None HEENT Surgical History: Reports: Cataract Surgery Cardiovascular Surgical History: Reports: Coronary Artery Stent, Other (See Below) Other Cardiovascular Surgeries/Procedures: ANGIOGRAM ABAOUT 20 YEARS AGO. oversized aorta Respiratory Surgical History: Reports: None GI Surgical History: Reports: Cholecystectomy, Colonoscopy, Hernia, Abdominal Male Surgical History: Reports: Prostatectomy, Other (See Below) Other Male Surgeries/Procedures: PILIDINOL CYST SURGERY Endocrine Surgical History: Reports: None Neurological Surgical History: Reports: Spinal Fusion, Other (See Below) Other Neurological Surgeries/Procedures: Spinal cord stimulator Musculoskeletal Surgical History: Reports: Shoulder Surgery Oncologic Surgical History: Reports: None Dermatological Surgical History: Reports: None Social & Family History - Family History Family Medical History: No Pertinent Family History - Tobacco Use Tobacco Use Status *Q: Never Tobacco User - Caffeine Use Caffeine Use: Reports: None - Alcohol Use Days Per Week of Alcohol Use: 7 Number of Drinks Per Day: 5 Total Drinks Per Week: 35 Date of Last Drink: 09/24/20 Time of Last Drink: 22:00 - Recreational Drug Use Recreational Drug Use: No - Living Situation & Occupation Living situation: Reports: , with Family Occupation: Retired (lives with , [place], [place].) ED ROS GENERAL - Review of Systems Review Of Systems: See Below Constitutional: Reports: No Symptoms HEENT: Reports: No Symptoms Respiratory: Reports: Shortness of Breath Cardiovascular: Reports: Chest Pain, Dyspnea on Exertion GI/Abdominal: Reports: No Symptoms : Reports: No Symptoms ED EXAM, GENERAL - Physical Exam Exam: See Below Exam Limited By: No Limitations General Appearance: Alert, WD/WN, No Apparent Distress Respiratory/Chest: No Respiratory Distress, Lungs Clear, Normal Breath Sounds, No Accessory Muscle Use, Chest Non-Tender Cardiovascular: Regular Rate, Rhythm, No Murmur GI/Abdominal: Soft, Non-Tender Course - Vital Signs Last Recorded V/S: Last Vital Signs Temp 98.9 F 09/25/20 15:24 Pulse 67 09/25/20 16:59 Resp 16 09/25/20 16:59 BP 124/66 09/25/20 16:59 Pulse Ox 92 L 09/25/20 16:59 - Orders/Labs/Meds Orders: Active Orders 24 hr Category Date Time Status Cardiac Monitoring [RC] .As Directed Care 09/25/20 15:41 Active EKG Documentation Completion [RC] ASDIRECTED Care 09/25/20 15:42 Active Peripheral IV Care [RC] . DIRECTED Care 09/25/20 15:42 Active Chest 1V Frontal [CR] Stat Exams 09/25/20 15:41 Taken Morphine Med 09/25/20 15:41 Active 4 mg IVPUSH Q10M PRN Nitroglycerin [Nitrostat] Med 09/25/20 15:41 Active 0.4 mg SL Q5M PRN Sodium Chloride 0.9% [Saline Flush] Med 09/25/20 15:41 Active 10 ml FLUSH ASDIRECTED PRN Peripheral IV Insertion Adult [OM.PC] Stat Oth 09/25/20 15:41 Ordered Saline Lock Insert [OM.PC] Stat Oth 09/25/20 15:41 Ordered EKG 12 Lead [EK] Stat Ther 09/25/20 15:41 Ordered Medication Orders Morphine Sulfate (Morphine) 4 mg IVPUSH Q10M PRN PRN Reason: Chest Pain Stop: 09/26/20 15:41 Last Admin: 09/25/20 16:00 Dose: 4 mg Documented by: [place]O Nitroglycerin (Nitrostat) 0.4 mg SL Q5M PRN PRN Reason: Chest Pain Stop: 09/26/20 15:41 Sodium Chloride (Saline Flush) 10 ml FLUSH ASDIRECTED PRN PRN Reason: Keep Vein Open Labs: Laboratory Tests 09/25/20 09/25/20 Range/Units 15:52 15:52 WBC 8.5 (4.5-11.0) K/uL RBC 3.94 L (4.30-5.90) M/uL Hgb 12.2 (12.0-15.0) g/dL Hct 38.3 L (40.0-54.0) % MCV 97 (80-98) fL MCH 31 (27-31) pg MCHC 32 (32-36) % Plt Count 217 (150-400) K/uL Neut % (Auto) 71 H (36-66) % Lymph % (Auto) 17 L (24-44) % [place] % (Auto) 9 H (2-6) % Eos % (Auto) 2 (2-4) % Baso % (Auto) 1 (0-1) % Sodium 135 L (140-148) mmol/L Potassium 4.7 (3.6-5.2) mmol/L Chloride 100 (100-108) mmol/L Carbon Dioxide 27 (21-32) mmol/L Anion Gap 12.7 (5.0-14.0) mmol/L BUN 28 H D (7-18) mg/dL Creatinine 1.6 H (0.8-1.3) mg/dL Est Cr Clr Drug Dosing 40.74 mL/min Estimated GFR (MDRD) 43 L (>60) Glucose 95 (74-106) mg/dL Calcium 9.0 (8.5-10.1) mg/dL Total Bilirubin 1.0 (0.2-1.0) mg/dL AST 22 (15-37) U/L ALT 26 (12-78) U/L Alkaline Phosphatase 111 (46-116) U/L Troponin I < 0.017 (0.000-0.056) ng/mL Total Protein 6.9 (6.4-8.2) g/dL Albumin 3.1 L (3.4-5.0) g/dL Globulin 3.8 H (2.3-3.5) g/dL Albumin/Globulin Ratio 0.8 L (1.2-2.2) Meds: Medications Generic Name Dose Route Start Last Admin Trade Name Freq PRN Reason Stop Dose Admin Morphine Sulfate 4 mg 09/25/20 15:41 09/25/20 16:00 Morphine IVPUSH 09/26/20 15:41 4 mg Q10M PRN Administration Chest Pain Nitroglycerin 0.4 mg 09/25/20 15:41 Nitrostat SL 09/26/20 15:41 Q5M PRN Chest Pain Sodium Chloride 10 ml 09/25/20 15:41 Saline Flush FLUSH ASDIRECTED PRN Keep Vein Open Discontinued Medications Generic Name Dose Route Start Last Admin Trade Name Taran PRN Reason Stop Dose Admin Aspirin 324 mg 09/25/20 15:41 09/25/20 17:01 Aspirin PO 09/25/20 15:42 Not Given ONETIME ONE Departure - Departure Time of Disposition: 17:22 Disposition: Home, Self-Care 01 Condition: Fair Clinical Impression: Atypical chest pain Instructions: Nonspecific Chest Pain, Adult Referrals: Aly Nash WHEEL ADJUSTER [Primary Care Provider] - Forms: ED Department Discharge Additional Instructions: Please followup with your primary care provider in 3-5 days if not better, please call return to the emergency department with worsening of symptoms. Sepsis Event Note (ED) - Evaluation Sepsis Screening Result: No Definite Risk - Focused Exam Vital Signs: Vital Signs Temp Pulse Resp BP Pulse Ox 09/25/20 16:59 67 16 124/66 92 L 09/25/20 15:24 98.9 F 70 12 133/62 93 L 09/25/20 15:20 98.9 F 70 12 133/62 93 L - My Orders Last 24 Hours: My Active Orders 09/25/20 15:41 Cardiac Monitoring [RC] .As Directed Chest 1V Frontal [CR] Stat Morphine 4 mg IVPUSH Q10M PRN Nitroglycerin [Nitrostat] 0.4 mg SL Q5M PRN Sodium Chloride 0.9% [Saline Flush] 10 ml FLUSH ASDIRECTED PRN Peripheral IV Insertion Adult [OM.PC] Stat Saline Lock Insert [OM.PC] Stat EKG 12 Lead [EK] Stat 09/25/20 15:42 EKG Documentation Completion [RC] ASDIRECTED Peripheral IV Care [RC] . DIRECTED - Assessment/Plan Last 24 Hours: My Active Orders 09/25/20 15:41 Cardiac Monitoring [RC] .As Directed Chest 1V Frontal [CR] Stat Morphine 4 mg IVPUSH Q10M PRN Nitroglycerin [Nitrostat] 0.4 mg SL Q5M PRN Sodium Chloride 0.9% [Saline Flush] 10 ml FLUSH ASDIRECTED PRN Peripheral IV Insertion Adult [OM.PC] Stat Saline Lock Insert [OM.PC] Stat EKG 12 Lead [EK] Stat 09/25/20 15:42 EKG Documentation Completion [RC] ASDIRECTED Peripheral IV Care [RC] . DIRECTED Plan: Assessment Acuity = acute Site and laterality = atypical chest pain Etiology = unknown Manifestations = none Location of injury = Home Lab values = CBC, CMP unremarkable except for creatinine elevated 1.6 consistent with chronic renal failure stage G3 B, troponin is negative EKG shows no acute process no ST elevation or depression chest x-ray also unremarkable official read radiologist pending Plan Had good relief with 2 mg morphine provided in the ED offer him further evaluation he declines at this time plan is discharged home follow-up with his primary care in the next 3 to 5 days for reevaluation This note was dictated using [employer] voice recognition software please call with any questions on syntax or grammar.
[2020-09-25] MEDS: Aspirin 81 MG Tab.Chew PO ONE ×2 (16:00→17:01)
[2020-09-25 17:00] VITALS: BP 124/66; PULSE 67
--- NOTE | 2020-09-26 09:25 | CR ---
CHEST: Portable 09/25/2020 at 4:05 PM CLINICAL HISTORY:Chest pain COMPARISON:09/06/2020 FINDINGS: Heart size and pulmonary vascularity are normal. There is some minimal increase in lung markings. This is similar to the study from 09 06. There are no effusions. Minimal streaky density at the left lung base may represent some patchy atelectasis. There are atherosclerotic changes in the aorta. IMPRESSION: Mildly prominent lung markings similar to 09/06/2020. This is nonspecific
== END 2020-09-25 17:45 | disposition home or self-care (01) ==
LOC: JP.ED 15:01
DX: R07.89 Other chest pain (principal); I25.10 Atherosclerotic heart disease of native coronary artery without angina pectoris; I11.0 Hypertensive heart disease with heart failure; I50.9 Heart failure, unspecified; E78.00 Pure hypercholesterolemia, unspecified; I25.2 Old myocardial infarction; R07.9 Chest pain, unspecified; F31.9 Bipolar disorder, unspecified; F41.9 Anxiety disorder, unspecified; E11.9 Type 2 diabetes mellitus without complications; M19.90 Unspecified osteoarthritis, unspecified site; E66.9 Obesity, unspecified; Z68.39 Body mass index [BMI] 39.0-39.9, adult; Z79.01 Long term (current) use of anticoagulants; Z79.02 Long term (current) use of antithrombotics/antiplatelets; Z79.899 Other long term (current) drug therapy; Z79.4 Long term (current) use of insulin; Z86.73 Personal history of transient ischemic attack (TIA), and cerebral infarction without residual deficits; Z95.5 Presence of coronary angioplasty implant and graft
CPT/HCPCS: 36415; 71045; 80053; 84484; 85025; 93005; 93010; 96374; 99285; J2270; A9270-GY

== ENCOUNTER 2021-03-07 12:45 | Emergency (ER) | payer MEDICARE, BC ==
[2021-03-07] MEDS ORDERED: Sodium Chloride 0.9% 10 ML Syringe FLUSH PRN (12:51)
[2021-03-07] MEDS ORDERED: Aspirin 81 MG Tab.Chew PO ONE (13:01)
--- NOTE | 2021-03-07 13:20 | EDM.PDOC ---
ED HPI GENERAL MEDICAL PROBLEM - General Chief Complaint: Cardiovascular Problem Stated Complaint: CHEST PAINS Time Seen by Provider: 03/07/21 13:15 Source of Information: Reports: Patient, Old Records History Limitations: Reports: No Limitations - History of Present Illness INITIAL COMMENTS - FREE TEXT/NARRATIVE: 70 yo male here with about 36 hrs of mild chest tightness. He had a cardiac catheterization in [place] on Thursday and developed these sx's on his way home. He did not talk to cardiology about this. He does not know the results of his cath. He tried NTG twice without benefit. He does not notice a change with anything he does in the severity of his sx's. There are no associated sx's. He has known coronary dz. Did take his Coreg today. Onset: Gradual Onset Date: 03/05/21 Duration: Hour(s): (36), Constant Location: Reports: Chest (anterior) Quality: Reports: Pressure Severity: Mild Improves with: Reports: None Worsens with: Reports: None Context: Reports: Other (See HPI) Associated Symptoms: Reports: Chest Pain. Denies: Cough, Fever/Chills, Nausea/Vomiting, Rash, Shortness of Breath Treatments ENGINEER SECOND ASSISTANT: Reports: Nitroglycerin Middle Chest Pain Score (Numeric/FACES): 2 - Related Data Allergies Allergy/AdvReac Type Severity Reaction Status Date / Time No Known Allergies Allergy Verified 03/07/21 12:54 Home Meds: Home Meds Furosemide [Lasix] 40 mg PO DAILY 01/17/14 [History] Losartan [Cozaar] 100 mg PO DAILY 01/17/14 [History] allopurinoL [Zyloprim] 150 mg PO DAILY 01/17/14 [History] metFORMIN [Glucophage XR] 1,000 mg PO BIDMEALS 01/17/14 [History] [place]-3S/DHA/Epa/Fish Oil [[place]-3 Fish Oil 1,000 mg Sfgl] 3,000 mg PO DAILY 10/27/18 [History] Apixaban [Eliquis] 5 mg PO BID 09/01/20 [History] Clopidogrel [Plavix] 75 mg PO DAILY 09/01/20 [History] Insulin Glarg,Human.Rec.Analog [Lantus Solostar] 12 unit SUBCUT BEDTIME 09/01/20 [History] atorvaSTATin [Lipitor] 80 mg PO BEDTIME 09/01/20 [History] carvediloL [Carvedilol] 6.25 mg PO BID 09/01/20 [History] Nitroglycerin [Nitrostat] 0.4 mg SL ASDIRECTED PRN 09/25/20 [History] Fluticasone Propionate [Flonase] 16 gm NASBOTH DAILY 10/17/20 [History] Magnesium Oxide 420 mg PO BID 10/17/20 [History] Propylene Glycol/Peg 400 [Systane 0.3-0.4% Eye Drops] 1 drop EYEBOTH Q4H PRN 10/17/20 [History] Omeprazole 40 mg PO DAILY 02/20/21 [History] traMADol [Ultram] 50 mg PO TID PRN 02/20/21 [History] Past Medical History HEENT History: Reports: Allergic Rhinitis, Cataract, Impaired Vision Cardiovascular History: Reports: CAD, Heart Failure, High Cholesterol, H ypertension, [place], Stents Other Cardiovascular History: enlarged aorta Respiratory History: Reports: Sleep Apnea Other Respiratory History: c-pap Gastrointestinal History: Reports: Chronic Constipation, Chronic Diarrhea, Diverticulosis, Hemorrhoids Genitourinary History: Reports: Renal Calculus Musculoskeletal History: Reports: Back Pain, Chronic, Neck Pain, Chronic, Osteoarthritis, Other (See Below) Other Musculoskeletal History: left shoulder. Lumbago. cervical, thoracic and Lumbar pain. bilat hip pain Neurological History: Reports: CVA Other Neuro History: vertebral artery occlusion Psychiatric History: Reports: Addiction, Anxiety, Bipolar, Depression, Other (See Below) Other Psychiatric History: major depressive disorder Endocrine/Metabolic History: Reports: Diabetes, Type II, Obesity/BMI 30+ Hematologic History: Reports: Anticoagulation Therapy Immunologic History: Reports: None Oncologic (Cancer) History: Reports: Prostate Dermatologic History: Reports: None - Infectious Disease History Infectious Disease History: Reports: Chicken Pox - Past Surgical History Head Surgeries/Procedures: Reports: None HEENT Surgical History: Reports: Cataract Surgery Cardiovascular Surgical History: Reports: Coronary Artery Stent, Other (See Below) Other Cardiovascular Surgeries/Procedures: ANGIOGRAM ABAOUT 20 YEARS AGO. oversized aorta Respiratory Surgical History: Reports: None GI Surgical History: Reports: Cholecystectomy, Colonoscopy, Hernia, Abdominal Male Surgical History: Reports: Prostatectomy, Other (See Below) Other Male Surgeries/Procedures: PILIDINOL CYST SURGERY Endocrine Surgical History: Reports: None Neurological Surgical History: Reports: Lumbar Spine, Spinal Fusion, Other (See Below) Other Neurological Surgeries/Procedures: Spinal cord stimulator. L4-L5 fusion Musculoskeletal Surgical History: Reports: Shoulder Surgery Other Musculoskeletal Surgeries/Procedures:: LT revers total shoulder Oncologic Surgical History: Reports: None Dermatological Surgical History: Reports: None Social & Family History - Family History Family Medical History: No Pertinent Family History - Caffeine Use Caffeine Use: Reports: None - Living Situation & Occupation Living situation: Reports: , with Family Occupation: Retired (lives with , [facility]) ED ROS GENERAL - Review of Systems Review Of Systems: See Below Constitutional: Reports: No Symptoms HEENT: Reports: No Symptoms Respiratory: Denies: Shortness of Breath, Pleuritic Chest Pain, Cough Cardiovascular: Reports: Chest Pain. Denies: Dyspnea on Exertion, Edema, Palpitations, Syncope GI/Abdominal: Reports: No Symptoms : Reports: No Symptoms Musculoskeletal: Reports: No Symptoms Skin: Reports: No Symptoms Neurological: Reports: No Symptoms Psychiatric: Reports: No Symptoms ED EXAM, GENERAL - Physical Exam Exam: See Below Exam Limited By: No Limitations General Appearance: Alert, WD/WN, No Apparent Distress Eye Exam: Bilateral Eye: Normal Inspection Ears: Normal External Exam, Normal Canal, Hearing Grossly Normal, Normal TMs Ear Exam: Bilateral Ear: Auricle Normal, Canal Normal Nose: Normal Inspection, No Blood Throat/Mouth: Normal Inspection, Normal Lips, Normal Oropharynx, Normal Voice, No Airway Compromise Head: Atraumatic, Normocephalic Neck: Normal Inspection Respiratory/Chest: No Respiratory Distress, Lungs Clear, Normal Breath Sounds, No Accessory Muscle Use. No: Chest Non-Tender (chest wall is tender anteriorly) Cardiovascular: Regular Rate, Rhythm, No Edema, Tachycardia GI/Abdominal: Soft, Non-Tender Extremities: Normal Inspection, Normal Range of Motion, Non-Tender, No Pedal Edema Neurological: Alert, Oriented, CN II-XII Intact, Normal Cognition, No Motor/Sensory Deficits Psychiatric: Normal Affect, Normal Mood #1 Interpretation EKG Date: 03/07/21 Time: 12:55 Rhythm: NSR Rate (Beats/Min): 100 Soso: Normal P-Wave: Present QRS: Normal ST-T: Normal QT: Normal Comparison: Change From Previous EKG (Rate increased from 72 to 100 only, otherwise unchanged) Course - Vital Signs Text/Narrative:: Discussed case with [facility] @ 1400h Last Recorded V/S: Last Vital Signs Temp 36.8 C 03/07/21 13:14 Pulse 97 03/07/21 13:38 Resp 18 03/07/21 13:38 BP 133/76 03/07/21 13:38 Pulse Ox 99 03/07/21 13:38 - Orders/Labs/Meds Orders: Active Orders 24 hr Category Date Time Status Cardiac Monitoring [RC] .As Directed Care 03/07/21 12:51 Active EKG Documentation Completion [RC] ASDIRECTED Care 03/07/21 12:51 Active Sodium Chloride 0.9% [Saline Flush] Med 03/07/21 12:51 Active 10 ml FLUSH ASDIRECTED PRN Saline Lock Insert [OM.PC] Routine Oth 03/07/21 12:51 Ordered EKG 12 Lead [EK] Routine Ther 03/07/21 12:51 Ordered Medication Orders Sodium Chloride (Sodium Chloride 0.9% 10 Ml Syringe) 10 ml FLUSH ASDIRECTED PRN PRN Reason: Keep Vein Open Last Admin: 03/07/21 13:45 Dose: 10 ml Documented by: CECILIA Labs: Laboratory Tests 03/07/21 03/07/21 03/07/21 Range/Units 13:08 13:08 13:08 WBC 8.4 (4.5-11.0) K/uL RBC 3.67 L (4.30-5.90) M/uL Hgb 11.6 L (12.0-15.0) g/dL Hct 36.5 L (40.0-54.0) % MCV 100 H (80-98) fL MCH 32 H (27-31) pg MCHC 32 (32-36) % Plt Count 153 (150-400) K/uL D-Dimer, Quantitative (0.0-500.0) ng/mL Sodium 142 (140-148) mmol/L Potassium 4.0 (3.6-5.2) mmol/L Chloride 104 (100-108) mmol/L Carbon Dioxide 27 (21-32) mmol/L Anion Gap 10.7 (5.0-14.0) mmol/L BUN 18 (7-18) mg/dL Creatinine 1.2 (0.8-1.3) mg/dL Est Cr Clr Drug Dosing 53.55 mL/min Estimated GFR (MDRD) 60 (>60) Glucose 118 H (74-106) mg/dL Calcium 8.7 (8.5-10.1) mg/dL Troponin I 0.065 H* (0.000-0.056) ng/mL 03/07/21 Range/Units 13:35 WBC (4.5-11.0) K/uL RBC (4.30-5.90) M/uL Hgb (12.0-15.0) g/dL Hct (40.0-54.0) % MCV (80-98) fL MCH (27-31) pg MCHC (32-36) % Plt Count (150-400) K/uL D-Dimer, Quantitative 908.62 H (0.0-500.0) ng/mL Sodium (140-148) mmol/L Potassium (3.6-5.2) mmol/L Chloride (100-108) mmol/L Carbon Dioxide (21-32) mmol/L Anion Gap (5.0-14.0) mmol/L BUN (7-18) mg/dL Creatinine (0.8-1.3) mg/dL Est Cr Clr Drug Dosing mL/min Estimated GFR (MDRD) (>60) Glucose (74-106) mg/dL Calcium (8.5-10.1) mg/dL Troponin I (0.000-0.056) ng/mL Meds: Medications Generic Name Dose Route Start Last Admin Trade Name Freeliud PRN Reason Stop Dose Admin Sodium Chloride 10 ml 03/07/21 12:51 03/07/21 13:45 Sodium Chloride 0.9% 10 Ml Syringe FLUSH 10 ml ASDIRECTED PRN Administration Keep Vein Open Discontinued Medications Generic Name Dose Route Start Last Admin Trade Name Freq PRN Reason Stop Dose Admin Aspirin 324 mg 03/07/21 13:01 03/07/21 13:41 Aspirin 81 Mg Tab.Chew PO 03/07/21 13:02 324 mg ONETIME ONE Administration Ketorolac Tromethamine 30 mg 03/07/21 13:26 03/07/21 13:43 Ketorolac 30 Mg/Ml Sdv IVPUSH 03/07/21 13:27 30 mg ONETIME ONE Administration Departure - Departure Time of Disposition: 14:15 Disposition: Home, Self-Care 01 Condition: Fair Clinical Impression: Chest wall pain, Atypical chest pain Referrals: Aly Nash NP [Primary Care Provider] - Forms: ED Department Discharge Additional Instructions: Increase your Coreg(carvedilol) to 12.5 mg every 12 hrs. Keep your appt for follow up with cardiology. Return if worse. Sepsis Event Note (ED) - Evaluation Sepsis Screening Result: No Definite Risk - Focused Exam Vital Signs: Vital Signs Temp Pulse Resp BP Pulse Ox 03/07/21 13:38 97 18 133/76 99 03/07/21 13:14 36.8 C 101 H 18 135/75 03/07/21 13:10 101 H 18 135/75 94 L 03/07/21 13:00 36.8 C 100 15 126/77 95 - My Orders Last 24 Hours: My Active Orders 03/07/21 12:51 Cardiac Monitoring [RC] .As Directed EKG Documentation Completion [RC] ASDIRECTED Sodium Chloride 0.9% [Saline Flush] 10 ml FLUSH ASDIRECTED PRN Saline Lock Insert [OM.PC] Routine EKG 12 Lead [EK] Routine - Assessment/Plan Last 24 Hours: My Active Orders 03/07/21 12:51 Cardiac Monitoring [RC] .As Directed EKG Documentation Completion [RC] ASDIRECTED Sodium Chloride 0.9% [Saline Flush] 10 ml FLUSH ASDIRECTED PRN Saline Lock Insert [OM.PC] Routine EKG 12 Lead [EK] Routine
[2021-03-07] MEDS ORDERED: Ketorolac 30 MG/ML SDV IVPUSH ONE (13:26)
[2021-03-07] MEDS ORDERED: Carvedilol 12.5 MG Tab PO ONE (14:01)
[2021-03-07 14:16] VITALS: BP 132/62; PULSE 62
== END 2021-03-07 14:22 | disposition home or self-care (01) ==
LOC: JP.ED 12:45
DX: R07.89 Other chest pain (principal); I25.10 Atherosclerotic heart disease of native coronary artery without angina pectoris; E78.00 Pure hypercholesterolemia, unspecified; I11.0 Hypertensive heart disease with heart failure; I50.9 Heart failure, unspecified; I25.2 Old myocardial infarction; Z79.01 Long term (current) use of anticoagulants; Z79.02 Long term (current) use of antithrombotics/antiplatelets; Z79.4 Long term (current) use of insulin; Z79.899 Other long term (current) drug therapy; Z95.5 Presence of coronary angioplasty implant and graft
CPT/HCPCS: 36415; 80048; 84484; 85027; 85379; 93005; 96374; 99284; 99285; A9270; J1885

== ENCOUNTER 2022-01-14 06:44 | Emergency (ER) | payer MEDICARE, BC ==
[2022-01-14 07:00] VITALS: BP 153/89; PULSE 113
[2022-01-14] MEDS ORDERED: Cyclobenzaprine 10 MG Tab PO ONE (07:39)
[2022-01-14] MEDS ORDERED: fentaNYL 100 MCG/2 ML SDV IM ONE (07:39)
== END 2022-01-14 08:29 | disposition home or self-care (01) ==
LOC: JP.ED 06:44
DX: M54.2 Cervicalgia (principal); I11.0 Hypertensive heart disease with heart failure; I50.9 Heart failure, unspecified; I25.2 Old myocardial infarction; I25.10 Atherosclerotic heart disease of native coronary artery without angina pectoris; F41.9 Anxiety disorder, unspecified; F32.9 Major depressive disorder, single episode, unspecified; E11.9 Type 2 diabetes mellitus without complications; E66.9 Obesity, unspecified; Z68.41 Body mass index [BMI] 40.0-44.9, adult; Z79.899 Other long term (current) drug therapy; Z88.8 Allergy status to other drugs, medicaments and biological substances
CPT/HCPCS: 96372; 99283; A9270-GY; J3010

== ENCOUNTER 2022-02-17 21:54 | Emergency (ER) | payer MEDICARE, BC ==
[2022-02-18] MEDS ORDERED: HYDROmorphone 1 MG/ML Syringe IM ONE (00:07)
[2022-02-18 00:18] VITALS: BP 136/70; PULSE 80
== END 2022-02-18 01:11 | disposition home or self-care (01) ==
LOC: JP.ED 21:54
DX: S22.32XA Fracture of one rib, left side, initial encounter for closed fracture (principal); S00.83XA Contusion of other part of head, initial encounter; S00.03XA Contusion of scalp, initial encounter; S60.222A Contusion of left hand, initial encounter; I11.0 Hypertensive heart disease with heart failure; I50.9 Heart failure, unspecified; I25.10 Atherosclerotic heart disease of native coronary artery without angina pectoris; E78.00 Pure hypercholesterolemia, unspecified; I25.2 Old myocardial infarction; Z86.73 Personal history of transient ischemic attack (TIA), and cerebral infarction without residual deficits; E11.9 Type 2 diabetes mellitus without complications; E66.9 Obesity, unspecified; Z68.39 Body mass index [BMI] 39.0-39.9, adult; Z90.49 Acquired absence of other specified parts of digestive tract; Z86.16 Personal history of COVID-19; Z79.899 Other long term (current) drug therapy; Z79.4 Long term (current) use of insulin; Z79.01 Long term (current) use of anticoagulants; Z79.82 Long term (current) use of aspirin; Z88.8 Allergy status to other drugs, medicaments and biological substances; W01.10XA Fall on same level from slipping, tripping and stumbling with subsequent striking against unspecified object, initial encounter
CPT/HCPCS: 70450; 71250; 73130-26-LT; 73130-LT; 74176; 96372; 99283; 99283-25; J1170